=== PATIENT | female | born 1985 | race Caucasian/White ===

== ENCOUNTER → 2016-11-01 | Outpatient (CLI) | payer OTHER ==
[~2016-11-01] MED LIST: CEFD300C2 PO; CLX/20 PO; ETONMIS VAGRING; FRCT/ PO; GLC/500 PO; MULT-506 PO; ONDA4TAB46 PO; OXYC-609 PO; OXYC1CAP5 PO; OXYC1TAB3 PO; PRENTAB26 PO; SULF800T23 PO; TOPI100T20 PO
[2016-11-01 11:03] LABS: CREATININE 0.71 mg/dl (0.60-1.20)
== END | disposition home or self-care (01) ==
LOC: C.LAB 09:34
PROVIDERS: ATTEND Internal Medicine Endocrinology, Diabetes & Metabolism
DX: R73.03 Prediabetes (principal); D35.2 Benign neoplasm of pituitary gland

== ENCOUNTER 2016-11-08 21:46 | Emergency (ER) | payer OTHER ==
[~2016-11-08] VITALS: Ht 170.2 cm; Wt 134.9 kg
[~2016-11-08 21:46] MED LIST changes: -CEFD300C2 PO; -CLX/20 PO; -FRCT/ PO; -GLC/500 PO; -MULT-506 PO; -ONDA4TAB46 PO; -OXYC-609 PO; -OXYC1CAP5 PO; -OXYC1TAB3 PO; -PRENTAB26 PO; -SULF800T23 PO; -TOPI100T20 PO
[2016-11-08 21:50] VITALS: TEMP 37.1; Ht 170.2 cm; Wt 134.9 kg
[2016-11-08] MEDS ORDERED: GLC/500 PO (22:00)
[2016-11-08] MEDS ORDERED: CLX/20 PO (22:00)
[2016-11-08] MEDS ORDERED: TOPI100T20 PO (22:00)
[2016-11-08 22:40] VITALS: BP 149/101; PULSE 90; O2SAT 98
[2016-11-08 22:55] LABS: URINE APPEARANCE CLOUDY (CLEAR); URINE BILIRUBIN NEG (NEG); URINE COLOR ORANGE; URINE NITRITE NEG (NEG); UROBILINOGEN NEG (NEG)
[2016-11-08 22:57] LABS: MANUAL MICROSCOPIC REQUIRED? NO; REVIEW REQ? NO
[2016-11-08] MEDS ORDERED: SEPTRA DS HOME PACK 1 EA VIAL PO ONE (23:00)
[2016-11-08] MEDS ORDERED: SULF800T23 PO (23:04)
--- NOTE | 2016-11-08 23:36 | EMERGENCY ROOM VISIT NOTE ---
History Report prepared by Raina: Norah Cox Under the Supervision of: Dr. Aneudy Thompson M.D. First contact with patient: 21:58 Chief Complaint: HEMATURIA Stated Complaint: HEMATURIA History of Present Illness The patient is a 31 year old female who presents to the Emergency Room with complaints of persistent hematuria starting 2.5 weeks ago. 2.5 weeks ago she started having hematuria. She went to the ED in [place] and was diagnosed with a UTI. She was prescribed Macrobid. She did have some improvement after starting the Macrobid, but started having hematuria again. She is due for her period and thought that it might have been her period, but she tried using a tampon and saw that her period had not started. She denies any urinary urgency or frequency or dysuria. She has some abdominal cramping which she attributes to her period. She has some lower back pain which she attributes to her work. She did experience some chills today and felt dizzy at times. She denies any injury. She denies any history of bladder or kidney problems. Pt denies LOC, headache, fevers, diaphoresis, visual changes, neck pain, chest pain, breathing difficulties, nausea, vomiting, melena, hematochezia, weakness, lymphadenopathy , rash, or other complaints. Source of History: patient Onset: 2.5 weeks ago Position: other (urinary) Quality: other (hematuria) Timing: other (persistent) Associated Symptoms: + abdominal pain, + back pain, + chills Note: Pt reports feeling dizzy. Review of Systems See HPI for pertinent positives and negatives. A total of ten systems were reviewed and were otherwise negative. Past Medical & Surgical Medical Problems: (1) PCOS (polycystic ovarian syndrome) (2) Pituitary adenoma (3) UTI (urinary tract infection) Family History Diabetes mellitus Heart disease Hypertension Kidney disease Kidney stones Social History Smoking Status: Never Smoker Marital Status: single Occupation Status: employed Current/Historical Medications Scheduled Citalopram (Citalopram Hydrobromide), 20 MG PO DAILY Metformin Hcl (Glucophage), 500 MG PO BID Sulfa/Trimethoprim (Bactrim Ds 800MG/160MG), 1 TAB PO BID Topiramate (Topamax), 100 MG PO BID Allergies Coded Allergies: Meperidine (Verified Allergy, Severe, tongue swelling, 11/08/16) Adhesives (Verified Allergy, Mild, 11/08/16) Physical Exam Vital Signs Date Time Temp Pulse Resp B/P Pulse Ox O2 Delivery O2 Flow Rate FiO2 11/08/16 22:40 90 18 149/101 98 Room Air 11/08/16 21:50 37.1 80 18 160/84 99 Room Air Physical Exam GENERAL: Awake, alert, well-appearing, in no distress HENT: Normocephalic, atraumatic. Oropharynx unremarkable. EYES: Normal conjunctiva. Sclera non-icteric. NECK: Supple. No nuchal rigidity. FROM. No JVD. RESPIRATORY: Clear to auscultation. CARDIAC: Regular rate, normal rhythm. Extremities warm and well perfused. Pulses equal. ABDOMEN: Soft, non-distended. No tenderness to palpation. No rebound or guarding. No masses. RECTAL: Deferred. MUSCULOSKELETAL: The back is symmetrical on inspection without obvious abnormality. There is no CVA tenderness to palpation. No joint edema. NEURO: Normal sensorium. No sensory or motor deficits noted. SKIN: No rash or jaundice noted. Medical Decision & Procedures Laboratory Results Test 11/08/16 22:00 Urine Color ORANGE Urine Appearance CLOUDY (CLEAR) Urine pH 6.0 (4.5-7.5) Urine Specific [place] 1.020 (1.000-1.030) Urine Protein NEG (NEG) Urine Glucose (UA) NEG (NEG) Urine Ketones NEG (NEG) Urine Occult Blood 3+ (NEG) Urine Nitrite NEG (NEG) Urine Bilirubin NEG (NEG) Urine Urobilinogen NEG (NEG) Urine Leukocyte Esterase TRACE (NEG) Urine WBC (Auto) 1-5 /hpf (0-5) Urine RBC (Auto) >30 /hpf (0-4) Urine Hyaline Casts (Auto) 1-5 /lpf (0-5) Urine Epithelial Cells (Auto) 10-20 /lpf (0-5) Urine Bacteria (Auto) NEG (NEG) Urine Test NEG (NEG) Laboratory results reviewed by me Medications Administered Medications (Trade) Dose Ordered Sig/Yasmine Route Start Time Stop Time Status Last Admin Dose Admin Trimethoprim/ Sulfamethoxazole (Sulfameth/ Trimeth Ds 800/ 160MG [facility]) [facility] 11/08/16 23:00 11/08/16 23:01 DC 11/08/16 23:14 1 HOMEPA ED Course 220: The patient was evaluated in room B10. A complete history and physical exam was performed. 2239: I obtained the urine results from [place]. Hematuria was noted. Culture results showed greater than [id number] mixed emperatriz. They thought the urine to be contaminated so they did not isolate anything else. 2251: I reevaluated the patient. I discussed results and discharge instructions : she verbalized understanding and agreement. The patient is ready for discharge. 0: Trimethoprim/Sulfamethoxazole 1 homepack PO. Medical Decision Etiologies such as renal colic, appendicitis, diverticulitis, mesenteric ischemia, aortic pathology, infections, inflammatory bowel disease, PUD, biliary pathology, UTI, as well as others were entertained. Patient was evaluated. She had no symptoms and then hematuria. She has some cramping with urination but this was minimal. Her physical examination was benign. She had no abdominal tenderness. She had no CVA tenderness. She had no fever. Culture was obtained from [facility] but this unfortunately only showed what was labeled as contamination. The patient has hematuria here and is not . I will treat her for a cystitis. Culture was sent. The patient was started on Bactrim. A prescription was given. If she has any from she will come back to emergency primary. She will follow-up as an outpatient. Impression Primary Impression: Hematuria Additional Impression: UTI (urinary tract infection) Scribe Attestation The scribe's documentation has been prepared under my direction and personally reviewed by me in its entirety. I confirm that the note above accurately reflects all work, treatment, procedures, and medical decision making performed by me. Departure Information Dispostion Home / Self-Care Prescriptions Sulfa/Trimethoprim (Bactrim Ds 800MG/160MG) Tab 1 TAB PO BID, #8 TAB Prov: Aneudy Thompson MD 11/08/16 Referrals Norm Raygoza D.O. (PCP) Forms HOME CARE DOCUMENTATION FORM, IMPORTANT VISIT INFORMATION, WORK / SCHOOL INSTRUCTIONS Patient Instructions My [facility] Additional Instructions URINARY TRACT INFECTION INSTRUCTIONS: Trimethoprim-Sulfamethoxazole(Bactrim DS): Take one pill twice daily for 5 days for your urine infection. All antibiotics can cause diarrhea. If this occurs and you feel worse or it does not resolve in 1-2 days follow up with your doctor or return to the Emergency Department as this could be signs of serious underlying problems. Any medication can cause an allergic reaction, stop the pills immediately and return to the ER for rash, hives, breathing difficulties, or swelling. Ibuprofen(Motrin, Advil) may be used for fever or pain. Use 600mg every six hours as needed. Take with food. Avoid using more than 2400mg in a 24 hour period. Do not use 2400mg per day for more than three consecutive days without physician direction. Prolonged inappropriate use can lead to stomach upset or ulcers. (AND/OR) Acetaminophen(Tylenol) may be used for fever or pain. Use 1000mg every six hours as needed. Avoid using more than 4000mg in a 24 hour period. Rest and drink plenty of fluids. Continue current medications. Return to the ER immediately for worsening or persistent abdominal pain, vomiting, fevers, back or flank pain, worsening of your condition, or as needed. Follow up with your primary physician next week for a recheck of the current condition. Call the Emergency Room on Saturday for culture results. [phone]. Problem Qualifiers
[2017-01-08] MEDS ORDERED: MULT-506 PO (12:07)
[2017-01-08] MEDS ORDERED: FRCT/ PO (12:07)
[2017-02-21] MEDS ORDERED: ONDA4TAB46 PO (09:33)
[2017-02-21] MEDS ORDERED: OXYC1CAP5 PO (11:37)
== END 2016-11-08 23:17 | disposition home or self-care (01) ==
LOC: C.EDB 21:48
DX: R31.9 Hematuria, unspecified (principal); N39.0 Urinary tract infection, site not specified; E28.2 Polycystic ovarian syndrome; Z85.89 Personal history of malignant neoplasm of other organs and systems; Z79.84 Long term (current) use of oral hypoglycemic drugs; Z79.899 Other long term (current) drug therapy; Z88.8 Allergy status to other drugs, medicaments and biological substances; Z91.09 Other allergy status, other than to drugs and biological substances

== ENCOUNTER → 2016-11-19 | Outpatient (CLI) | payer OTHER ==
[~2016-11-19] MED LIST changes: +CEFD300C2 PO; +CLX/20 PO; -ETONMIS VAGRING; +FRCT/ PO; +GLC/500 PO; +MULT-506 PO; +ONDA4TAB46 PO; +OXYC-609 PO; +OXYC1CAP5 PO; +OXYC1TAB3 PO; +PRENTAB26 PO; +SULF800T23 PO; +TOPI100T20 PO
[2016-11-19 12:40] LABS: BASO % 0.3 %; BASO ABS # 0.03 K/uL (0-0.2); COMPLETE YES; EOS % 1.5 %; HEMATOCRIT 41.2 % (37-47); IG% 0.1 %; LYMPH % 29.3 %; MEAN CORPUSCULAR HEMOGLOBIN 29.3 pg (25-34); MEAN CORPUSCULAR HGB CONC 32.5 g/dl (32-36); MONO % 3.8 %; PLATELET COUNT 232 K/uL (130-400); RED BLOOD COUNT 4.58 M/uL (4.2-5.4); WHITE BLOOD COUNT 8.87 K/uL (4.8-10.8)
[2016-11-19 12:47] LABS: INR 0.9 (0.9-1.1); PROTHROMBIN TIME (PATIENT) 9.5 SECONDS (9.0-12.0)
== END | disposition home or self-care (01) ==
LOC: C.LAB 11:20
PROVIDERS: ATTEND Family Medicine
DX: R31.9 Hematuria, unspecified (principal)

== ENCOUNTER → 2016-11-22 | Outpatient (CLI) | payer OTHER ==
--- NOTE | 2016-11-22 16:53 | DIAGNOSTIC IMAGING REPORT ---
RENAL ULTRASOUND HISTORY: Flank [place]. [id number] COMPARISON: None. FINDINGS: Right kidney: Maximum dimension 10.8 cm Normal corticomedullary differentiation and cortical thickness. Left kidney: Maximum dimension 11.8 cm Normal corticomedullary differentiation and cortical thickness. Bladder: No bladder wall thickening. The bilateral ureteral jets were identified. IMPRESSION: Normal renal ultrasound. Electronically signed by: Gavino Cronin M.D. 11/22/2016 4:51 PM Dictated Date/Time: 11/22/2016 4:51 PM
== END | disposition home or self-care (01) ==
LOC: C.ULTR 15:56
PROVIDERS: ATTEND Family Medicine
DX: R31.9 Hematuria, unspecified (principal)

== ENCOUNTER → 2016-11-27 | Outpatient (CLI) | payer OTHER | END | disposition home or self-care (01) | LOC: C.LAB 14:48 | PROVIDERS: ATTEND Family Medicine | DX: R79.9 Abnormal finding of blood chemistry, unspecified (principal) ==

== ENCOUNTER → 2016-12-24 | Outpatient (CLI) | payer OTHER | END | disposition home or self-care (01) | LOC: C.PATHSPEC 16:58 | PROVIDERS: ATTEND Nurse Practitioner Adult Health | DX: R31.0 Gross hematuria (principal) ==

== ENCOUNTER → 2016-12-31 | Outpatient (CLI) | payer OTHER ==
[~2016-12-31] MED LIST changes: +OPTIRAY 320 IV PRN
--- NOTE | 2016-12-31 15:59 | DIAGNOSTIC IMAGING REPORT ---
CT ABD/PELVIS COMBO CLINICAL HISTORY: Gross hematuria COMPARISON STUDY: None. TECHNIQUE: Unenhanced images were obtained through the abdomen pelvis. The patient was injected with 50 cc of Optiray 320. The patient is rescanned in a dynamic helical fashion following the additional administration of 69 cc of Optiray 320. CT DOSE: 3638.95 mGy.cm FINDINGS: Lower chest: There are minimal dependent atelectatic changes. Liver: There is mild hepatic steatosis. No focal masses are visualized. Gallbladder: Unremarkable. Spleen: Normal in size and attenuation. Pancreas: Unremarkable. Adrenal glands: Unremarkable. Kidneys: There is a 7 mm proximal right ureteral calculus. There are no significant obstructive changes. No left renal calculi are visualized. No bladder calculi are evident. No renal masses are visualized. Bowel: There are no transition zones indicate bowel obstruction. Appendix appears normal. There is no acute diverticulitis. Peritoneum: There is no intraperitoneal free air or abdominal ascites. Vasculature: The abdominal aorta is normal in course and caliber. Adenopathy: None. Pelvic viscera: There is a 44 mm right ovarian cyst likely functional. Skeletal structures: No destructive osseous lesions are seen. IMPRESSION: 1. 7 mm nonobstructing proximal right ureteral calculus 2. No solid renal masses identified 3. 44 mm right ovarian cyst likely functional Electronically signed by: Bao Yeh M.D. 12/31/2016 3:57 PM Dictated Date/Time: 12/31/2016 3:53 PM
== END | disposition home or self-care (01) ==
LOC: C.CTS 15:09
PROVIDERS: ATTEND Nurse Practitioner Adult Health
DX: R31.0 Gross hematuria (principal); N20.1 Calculus of ureter; N83.201 Unspecified ovarian cyst, right side

== ENCOUNTER → 2017-01-02 | Outpatient (CLI) | payer OTHER ==
[~2017-01-02] MED LIST changes: -OPTIRAY 320 IV PRN
--- NOTE | 2017-01-02 15:00 | DIAGNOSTIC IMAGING REPORT ---
KUB CLINICAL HISTORY: NEPHROLITHIASIS COMPARISON STUDY: CT scan dated 12/31/2016 FINDINGS: There is a 7 mm proximal right ureteral calculus at the L3 level. There are no calcifications suspicious for renal calculi. There is no pathologic bowel dilatation. IMPRESSION: 7 mm proximal right ureteral calculus Electronically signed by: Bao Yeh M.D. 01/02/2017 2:58 PM Dictated Date/Time: 01/02/2017 2:57 PM
[2017-01-02 15:13] LABS: BLOOD UREA NITROGEN 13 mg/dl (7-18); BUN/CREATININE RATIO 13.9 (10-20); CREATININE 0.92 mg/dl (0.60-1.20)
== END | disposition home or self-care (01) ==
LOC: C.LAB 13:16
PROVIDERS: ATTEND Nurse Practitioner Adult Health
DX: N20.0 Calculus of kidney (principal); R31.0 Gross hematuria

== ENCOUNTER → 2017-01-07 | Outpatient (CLI) | payer OTHER ==
[2017-01-07 09:37] LABS: BASO % 0.2 %; BASO ABS # 0.02 K/uL (0-0.2); COMPLETE YES; EOS % 1.1 %; HEMATOCRIT 39.1 % (37-47); IG% 0.4 %; LYMPH % 26.5 %; LYMPH ABS # 2.54 K/uL (1.2-3.4); MEAN CELL VOLUME 90.3 fL (80-100); MEAN CORPUSCULAR HEMOGLOBIN 29.8 pg (25-34); MEAN PLATELET VOLUME 11.8 fL (7.4-10.4); MONO % 4.9 %; NEUT % 66.9 %; PLATELET COUNT 240 K/uL (130-400); RED BLOOD COUNT 4.33 M/uL (4.2-5.4)
[2017-01-07 09:40] LABS: POTASSIUM 4.2 mmol/L (3.5-5.1)
== END | disposition home or self-care (01) ==
LOC: C.LAB 08:34
PROVIDERS: ATTEND Nurse Practitioner Adult Health
DX: N20.1 Calculus of ureter (principal)

== ENCOUNTER → 2017-01-11 | Day surgery (SDC) | payer OTHER ==
[2017-01-08 12:07] VITALS: Ht 170.2 cm; Wt 135.3 kg
--- NOTE | 2017-01-08 12:22 | PAT Medication Instructions ---
Service Date Jan 08, 2017. Current Home Medication List Acetamin/Butalbital/Caffeine (Fioricet), 1 TAB PO UD PRN for RN Citalopram (Citalopram Hydrobromide), 20 MG PO QAM Metformin Hcl (Glucophage), 500 MG PO BID Multivitamin (Multivitamin), 1 TAB PO QAM Topiramate (Topamax), 100 MG PO BID Medication Instructions For Your Scheduled Surgery - Hold the following medications 48 hours prior to surgery: Metformin Hcl (Glucophage), 500 MG PO BID - Hold the following medications the morning of surgery: Acetamin/Butalbital/Caffeine (Fioricet), 1 TAB PO UD PRN Multivitamin (Multivitamin), 1 TAB PO QAM - Take the following medications the morning of surgery with a sip of water OTHERWISE NOTHING TO EAT OR DRINK AFTER MIDNIGHT: Topiramate (Topamax), 100 MG PO BID Citalopram (Citalopram Hydrobromide), 20 MG PO QAM - Take the following medications as scheduled the night before surgery: Topiramate (Topamax), 100 MG PO BID Acetamin/Butalbital/Caffeine (Fioricet), 1 TAB PO UD PRN If you have any questions please call us at [phone] or [phone] or [phone]
[~2017-01-11] VITALS: Ht 170.2 cm; Wt 135.3 kg
[~2017-01-11] MED LIST changes: +CIPROFLOXACIN 400MG / D5W IV SCH; +LACTATED RINGER'S 1000ML 1,000 ML IV SCH; -SULF800T23 PO
== END ==
LOC: EDSTATUS 09:15 → C.PAT 11:57
PROVIDERS: ATTEND Urology
DX: Z01.812 Encounter for preprocedural laboratory examination (principal); Z53.9 Procedure and treatment not carried out, unspecified reason

== ENCOUNTER → 2017-01-28 | Outpatient (CLI) | payer OTHER ==
[~2017-01-28] MED LIST changes: -CIPROFLOXACIN 400MG / D5W IV SCH; -LACTATED RINGER'S 1000ML 1,000 ML IV SCH
[2017-01-28 16:02] LABS: URINE APPEARANCE CLEAR (CLEAR); URINE BILIRUBIN NEG (NEG); URINE COLOR DK YELLOW; URINE NITRITE NEG (NEG); URINE PH 6.5 (4.5-7.5); URINE SPECIFIC GRAVITY 1.023 (1.000-1.030); UROBILINOGEN NEG (NEG)
[2017-01-28 16:05] LABS: MANUAL MICROSCOPIC REQUIRED? NO; REVIEW REQ? NO
== END | disposition home or self-care (01) ==
LOC: C.LABSPEC 15:43
PROVIDERS: ATTEND Obstetrics & Gynecology
DX: O24.419 Gestational diabetes mellitus in pregnancy, unspecified control (principal)

== ENCOUNTER → 2017-02-04 | Outpatient (CLI) | payer OTHER ==
[2017-02-04 14:41] LABS: BASO % 0.3 %; BASO ABS # 0.03 K/uL (0-0.2); COMPLETE YES; EOS % 1.1 %; HEMATOCRIT 37.5 % (37-47); IG% 0.4 %; LYMPH % 25.6 %; LYMPH ABS # 2.62 K/uL (1.2-3.4); MEAN CELL VOLUME 88.4 fL (80-100); MEAN CORPUSCULAR HGB CONC 32.8 g/dl (32-36); MEAN PLATELET VOLUME 11.9 fL (7.4-10.4); MONO % 4.5 %; NEUT % 68.1 %; PLATELET COUNT 213 K/uL (130-400); RED BLOOD COUNT 4.24 M/uL (4.2-5.4); WHITE BLOOD COUNT 10.25 K/uL (4.8-10.8)
[2017-02-07 01:02] LABS: CHLAMYDIA TRACH RNA*** NOT DETECTED (NOT DETECTED); GC (NEIS GONORRHOEAE)RNA** NOT DETECTED (NOT DETECTED)
== END | disposition home or self-care (01) ==
LOC: C.LAB1850 13:08
PROVIDERS: ATTEND Obstetrics & Gynecology
DX: O24.419 Gestational diabetes mellitus in pregnancy, unspecified control (principal); Z3A.00 Weeks of gestation of pregnancy not specified

== ENCOUNTER 2017-02-10 04:12 | Emergency (ER) | payer OTHER ==
[~2017-02-10] VITALS: Ht 157.5 cm; Wt 135.0 kg
[~2017-02-10 04:12] MED LIST changes: -CEFD300C2 PO; -ONDA4TAB46 PO; -OXYC-609 PO; -OXYC1CAP5 PO; -OXYC1TAB3 PO; -PRENTAB26 PO
[2017-02-10 04:21] VITALS: TEMP 36.8; Ht 157.5 cm; Wt 135.0 kg
[2017-02-10] MEDS ORDERED: MoRPHine SULFATE 4 MG/ML 1 ML CARP\\VIAL IV STA ×2 (04:33→06:02)
[2017-02-10] MEDS ORDERED: SODIUM CHLORIDE 0.9% 1000ML 1,000 ML IV STA ×2 (04:33)
[2017-02-10] MEDS ORDERED: ONDANSETRON INJ 2 MG/ML 2 ML VIAL IV STA (04:33)
[2017-02-10 04:41] VITALS: O2SAT 98
[2017-02-10 04:47] LABS: BASO % 0.3 %; BASO ABS # 0.03 K/uL (0-0.2); COMPLETE YES; EOS % 1.2 %; HEMATOCRIT 39.3 % (37-47); IG% 0.2 %; LYMPH % 25.2 %; MEAN CELL VOLUME 87.3 fL (80-100); MEAN CORPUSCULAR HEMOGLOBIN 29.6 pg (25-34); MEAN CORPUSCULAR HGB CONC 33.8 g/dl (32-36); MEAN PLATELET VOLUME 11.9 fL (7.4-10.4); MONO % 6.6 %; NEUT % 66.5 %; PLATELET COUNT 214 K/uL (130-400); WHITE BLOOD COUNT 9.92 K/uL (4.8-10.8)
[2017-02-10 05:24] LABS: ALKALINE PHOSPHATASE 87 U/L (45-117); ALT/SGPT 20 U/L (12-78); BLOOD UREA NITROGEN 8 mg/dl (7-18); BUN/CREATININE RATIO 10.7 (10-20); CALCIUM 8.9 mg/dl (8.5-10.1); CARBON DIOXIDE 21 mmol/L (21-32); CHLORIDE 107 mmol/L (98-107); CREATININE 0.78 mg/dl (0.60-1.20); GLUCOSE 102 mg/dl (70-99)
[2017-02-10 05:50] LABS: AST/SGOT 18 U/L (15-37); SODIUM 139 mmol/L (136-145)
[2017-02-10] MEDS ORDERED: PRENTAB26 PO (06:18)
[2017-02-10 06:20] LABS: URINE APPEARANCE CLOUDY (CLEAR); URINE BILIRUBIN NEG (NEG); URINE COLOR DK YELLOW; URINE EPITHELIAL CELL AUTO >30 /lpf (0-5); URINE NITRITE NEG (NEG); URINE PH 5.5 (4.5-7.5); URINE SPECIFIC GRAVITY 1.028 (1.000-1.030); UROBILINOGEN NEG (NEG); ZZUR CULT IF INDIC CLEAN CATCH NO
[2017-02-10 06:26] LABS: MANUAL MICROSCOPIC REQUIRED? NO; REVIEW REQ? YES
[2017-02-10 06:36] LABS: URINE MUCUS PRESENT (NONE PRSENT)
[2017-02-10] MEDS ORDERED: HYDROmorphone INJ 1 MG/ML SYR IV STA (06:52)
[2017-02-10] MEDS ORDERED: OXYCODONE IR HOME PACK PO ONE (07:00)
[2017-02-10] MEDS ORDERED: ONDANSETRON HOME PACK 4MG OD TAB PO ONE (07:00)
--- NOTE | 2017-02-10 07:24 | EMERGENCY ROOM VISIT NOTE ---
History First contact with patient: 04:23 Chief Complaint: KIDNEY STONE Stated Complaint: KIDNEY STONE History of Present Illness The patient is a 32 year old female who presents to the Emergency Room with complaints of severe sudden onset of right flank pain with history kidney stents who is 9 weeks . Patient had ultrasound last week that showed a viable IUP. Her urologist is Dr. Sue. Patient discussed pain as aching, ranging in severity 9 out of 10. Nothing makes it better or worse. Patient denies abdominal pain, vaginal bleeding, vaginal pain, urinary symptoms, fever, chills, vomiting, diarrhea, chest pain, dyspnea. No injury to the area. Review of Systems See HPI for pertinent positives & negatives. A total of 10 systems reviewed and were otherwise negative. Past Medical/Surgical History Medical Problems: (1) PCOS (polycystic ovarian syndrome) (2) Pituitary adenoma (3) UTI (urinary tract infection) Family History Diabetes mellitus Heart disease Hypertension Kidney disease Kidney stones Social History Smoking Status: Never Smoker Drug Use: none Marital Status: in relationship Housing Status: lives with family Occupation Status: employed Current/Historical Medications Scheduled Multivit/Min/Iron/Fol Ac/Pren ( Vitamin), 1 TAB PO DAILY Allergies Coded Allergies: Meperidine (Verified Allergy, Severe, tongue swelling, 02/10/17) Adhesives (Verified Allergy, Mild, PEELED SKIN OFF WITH PLASTIC TAPE, 02/10) [place] (Unverified Allergy, Unknown, TONGUE SWELLING, 02/10/17) Physical Exam Vital Signs Date Time Temp Pulse Resp B/P (MAP) Pulse Ox O2 Delivery O2 Flow Rate FiO2 02/10/17 06:49 88 18 134/83 96 02/10/17 04:41 98 Room Air 02/10/17 04:40 98 Room Air 02/10/17 04:21 36.8 95 22 152/95 100 Room Air Physical Exam VITALS: Vitals are noted on the nurse's note and reviewed by myself. Vital signs stable. GENERAL: Pleasant female, in no acute distress, nondiaphoretic, well-developed well-nourished. SKIN: The skin was without rashes, erythema, edema, or bruising. There is no tenting of the skin. Capillary reflex less than 2 seconds. HEAD: Normocephalic atraumatic. EARS: External auditory canals clear, tympanic membranes pearly espinoza without erythema or effusion bilaterally. EYES: Pupils equal round and reactive to light and accommodation. Conjunctivae without injection, sclerae without icterus. Extraocular movements intact. NOSE: Patent, turbinates without inflammation or discharge. MOUTH: Mucous membranes moist. Pharynx without erythema or exudate. Uvula midline. Airway patent. Tongue does not deviate. NECK: Supple without nuchal rigidity. No lymphadenopathy. No thyromegaly. Cervical spine is nontender. No JVD. HEART: Regular rate and rhythm without murmurs gallops or rubs. LUNGS: Clear to auscultation bilaterally without wheezes, rales or rhonchi. No dullness to percussion. No retractions or accessory muscle use. ABDOMEN: Positive bowel sounds x 4. Normal tympanic percussion. Soft, protuberant, obese, no CVA tenderness nontender, without masses or organomegaly. Harris sign negative. No guarding or rebound tenderness. MUSCULOSKELETAL: No muscle atrophy, erythema, or edema noted. NEURO: Patient was alert and oriented to person place and time. Normal sensation to light and sharp touch. No focal neurological deficits. Medical Decision & Procedures Laboratory Results 02/10/17 04:33 Red Blood Count 4.50, Mean Corpuscular Volume 87.3, Mean Corpuscular Hemoglobin 29.6, Mean Corpuscular Hemoglobin Concent 33.8, Mean Platelet Volume 11.9, Neutrophils (%) (Auto) 66.5, Lymphocytes (%) (Auto) 25.2, Monocytes (%) (Auto) 6.6, Eosinophils (%) (Auto) 1.2, Basophils (%) (Auto) 0.3, Neutrophils # (Auto) 6.60, Lymphocytes # (Auto) 2.50, Monocytes # (Auto) 0.65, Eosinophils # (Auto) 0.12, Basophils # (Auto) 0.03 02/10/17 04:33 Test 02/10/17 04:33 02/10/17 05:00 White Blood Count 9.92 K/uL (4.8-10.8) Red Blood Count 4.50 M/uL (4.2-5.4) Hemoglobin 13.3 g/dL (12.0-16.0) Hematocrit 39.3 % (37-47) Mean Corpuscular Volume 87.3 fL (80-100) Mean Corpuscular Hemoglobin 29.6 pg (25-34) Mean Corpuscular Hemoglobin Concent 33.8 g/dl (32-36) Platelet Count 214 K/uL (130-400) Mean Platelet Volume 11.9 fL (7.4-10.4) Neutrophils (%) (Auto) 66.5 % Lymphocytes (%) (Auto) 25.2 % Monocytes (%) (Auto) 6.6 % Eosinophils (%) (Auto) 1.2 % Basophils (%) (Auto) 0.3 % Neutrophils # (Auto) 6.60 K/uL (1.4-6.5) Lymphocytes # (Auto) 2.50 K/uL (1.2-3.4) Monocytes # (Auto) 0.65 K/uL (0.11-0.59) Eosinophils # (Auto) 0.12 K/uL (0-0.5) Basophils # (Auto) 0.03 K/uL (0-0.2) RDW Standard Deviation 47.7 fL (36.4-46.3) RDW Coefficient of Variation 14.9 % (11.5-14.5) Immature Granulocyte % (Auto) 0.2 % Immature Granulocyte # (Auto) 0.02 K/uL (0.00-0.02) Anion Gap 11.0 mmol/L (3-11) Est Creatinine Clear Calc Drug Dose 140.0 ml/min Estimated GFR () 118.2 Estimated GFR (Non- 102.0 BUN/Creatinine Ratio 10.7 (10-20) Calcium Level 8.9 mg/dl (8.5-10.1) Total Bilirubin 0.2 mg/dl (0.2-1) Direct Bilirubin mg/dl (0-0.2) Aspartate Amino Transf (AST/SGOT) 18 U/L (15-37) Alanine Aminotransferase (ALT/SGPT) 20 U/L (12-78) Alkaline Phosphatase 87 U/L (45-117) Total Protein 7.3 gm/dl (6.4-8.2) Albumin 3.0 gm/dl (3.4-5.0) Urine Color DK YELLOW Urine Appearance CLOUDY (CLEAR) Urine pH 5.5 (4.5-7.5) Urine Specific [place] 1.028 (1.000-1.030) Urine Protein 1+ (NEG) Urine Glucose (UA) NEG (NEG) Urine Ketones NEG (NEG) Urine Occult Blood 2+ (NEG) Urine Nitrite NEG (NEG) Urine Bilirubin NEG (NEG) Urine Urobilinogen NEG (NEG) Urine Leukocyte Esterase NEG (NEG) Urine WBC (Auto) 5-10 /hpf (0-5) Urine RBC (Auto) 5-10 /hpf (0-4) Urine Hyaline Casts (Auto) 5-10 /lpf (0-5) Urine Epithelial Cells (Auto) >30 /lpf (0-5) Urine Bacteria (Auto) NEG (NEG) Urine Crystals CALCIUM OXALATE (NONE Urine Mucus PRESENT (NONE PRSENT) Medications Administered Medications (Trade) Dose Ordered Sig/Yasmine Route Start Time Stop Time Status Last Admin Dose Admin Morphine Sulfate (MoRPHine SULFATE INJ) 4 mg NOW STAT IV 02/10/17 04:33 02/10/17 04:35 DC 02/10/17 04:50 4 MG Ondansetron HCl (Zofran Inj) 4 mg NOW STAT IV 02/10/17 04:33 02/10/17 04:35 DC 02/10/17 04:50 4 MG Sodium Chloride 1,000 ml @ 999 mls/hr Q1H1M STAT IV 02/10/17 04:33 02/10/17 05:33 DC 02/10/17 04:50 999 MLS/HR Sodium Chloride 1,000 ml @ 125 mls/hr Q8H STAT IV 02/10/17 04:33 02/10/17 12:32 02/10/17 04:51 125 MLS/HR Morphine Sulfate (MoRPHine SULFATE INJ) 4 mg NOW STAT IV 02/10/17 06:02 02/10/17 06:03 DC 02/10/17 06:08 4 MG Hydromorphone HCl (Dilaudid Inj) 1 mg NOW STAT IV 02/10/17 06:52 02/10/17 06:53 DC 02/10/17 06:57 1 MG ED Course Prior records/ancillary studies reviewed. Triage Nursing notes reviewed. The patient's history was concerning for right flank pain. Differential diagnosis: Etiologies such as renal colic, problem with , appendicitis, diverticulitis, mesenteric ischemia, aortic pathology, infections, inflammatory bowel disease, PUD, biliary pathology, UTI, as well as others were entertained. Physical examination findings: As above. ER treatment provided: Morphine, Zofran, IV fluids On reassessment the patient felt better. Diagnostic interpretation by me: The labs revealed stable H&H. Urinalysis revealed hematuria. There was no sign of UTI. Imaging studies: CT of the abdomen and pelvis was reviewed from prior and patient does have a 7 mm stone in the right kidney Ultrasound was reviewed and shows viable IUP with 4cm right ovarian cyst. Mild right hydronephrosis It appears that the patient has isolated renal colic from a possible right sided stone. Patient also has a right ovarian cyst. She is 9 weeks . She certainly had imaging. She states she will follow up with Dr. Sue. Patient does not want to be seen by Dr. Reeder. She felt better to be medicated as above. She is advised take medications as directed and to follow-up with OB and urology this week or here in the ER sooner for severe pain, fevers, vomiting, worsening signs or symptoms or as needed. By the evaluation outlined above emergent etiologies such as appendicitis, diverticulitis, mesenteric ischemia, aortic pathology, infections, inflammatory bowel disease, PUD, biliary pathology, UTI, as well as others were deemed relatively unlikely. The pt informed about the findings as listed above. All questions were answered and pleased with the treatment. Return instructions were outlined and the patient was discharged in stable condition. Outpatient prescription management: Oxy IR 5mg 1-2 po Q4 hrs prn Zofran Referral: The pt was referred to [facility] for follow up care regarding their stone. And The patient was referred back to their TRANSPLANT COORDINATOR for follow-up in 2 to 3 days for a recheck of the current condition. Case reviewed with my attending Medical Decision As above Impression Primary Impression: Right flank pain Additional Impression: Right ovarian cyst Departure Information Dispostion Home / Self-Care Condition GOOD Referrals Norm Raygoza D.O. (PCP) Patient Instructions My [facility] Additional Instructions DO NOT drive, drink alcohol, operate machinery, or perform dangerous activities today. You were given medications in the ER that can affect your ability to safely function or operate a vehicle. Oxycodone Immediate Release (OxyIR) 5mg: Take 1-2 pills every four hours for pain. Avoid alcohol, operating machinery or dangerous equipment, working on ladders or roofs, DRIVING, or situations where being under the influence may be dangerous. It is recommended to use an [id number] stool softener such as Colace, 100mg twice daily while taking this medication to avoid constipation. Zofran 4 mg: Take one every six hours as needed for nausea. Avoid alcohol, operating machinery or dangerous equipment, working on ladders or roofs, DRIVING , or situations where being under the influence may be dangerous. Acetaminophen(Tylenol) may be used for fever or pain. Use 1000mg every six hours as needed. Avoid using more than 3000mg in a 24 hour period. This medication can be taken if you need to drive, work, or perform activities which may be dangerous when taking narcotic pain medication. Rest and avoid strenuous activity until your stone passes and symptoms resolve. Drink plenty of fluids. Continue current medications. Return to the ER for worsening abdominal or back pain, vomiting, fevers, passing out, or as needed. Follow up with urology in 2-3 days, call for an appointment. Follow-up the OB doctor in 2-3 days. Call for an appointment. Problem Qualifiers
[2017-02-10] MEDS ORDERED: OXYC1TAB3 PO (07:26)
[2017-02-10 07:43] VITALS: BP 134/83; PULSE 62; O2SAT 99
--- NOTE | 2017-02-10 08:32 | DIAGNOSTIC IMAGING REPORT ---
(RENAL)RETROPERITON COMP HISTORY: 32 years-old Female right flank pain, ? stone COMPARISON: Renal ultrasound 11/22/2016 TECHNIQUE: Multiple real-time sonographic images of the kidneys and urinary bladder were obtained assessing grayscale appearance and color flow FINDINGS: Right kidney measures 11.5 x 5.1 x 5.7 cm and demonstrates mild dilation of the renal pelvis and calyces. No right-sided obstructing calculus or mass identified. Corticomedullary differentiation is within normal limits. Incidental note is made of increased echogenicity of the liver suggesting fatty infiltration. Left kidney measures 11.6 x 5.6 x 5.6 cm and is unremarkable without hydronephrosis, mass, calculus or abnormal cortical medullary differentiation. Urinary bladder is collapsed and not well seen. The exam overall is limited secondary to patient obesity. IMPRESSION: 1. Mild dilation of the right renal pelvis and calyces suggests hydronephrosis without obstructing stone or calculus identified. 2. Left kidney is unremarkable. Urinary bladder is collapsed. 3. Fatty infiltration of the liver incidentally noted. The above report was generated using voice recognition software. It may contain grammatical, syntax or spelling errors. Electronically signed by: Von Erazo M.D. 02/10/2017 8:30 AM Dictated Date/Time: 02/10/2017 8:27 AM
--- NOTE | 2017-02-10 08:36 | DIAGNOSTIC IMAGING REPORT ---
<14 WKS SINGLE HISTORY: 32 years-old Female acute right-sided flank pain. Patient is 9 weeks COMPARISON: Renal ultrasound of same day, CT abdomen and pelvis 12/31/2016. TECHNIQUE: Multiple real-time sonographic images of the deep pelvic structures were obtained transabdominally assessing grayscale appearance, color and spectral flow with M-mode analysis. FINDINGS: Anteflexed uterus is seen, 11.0 x 7.2 x 7.6 cm. Intrauterine gestational sac is present with a yolk sac and pole. [place]-rump length measures 2.4 cm, correlating with estimated gestational age of 9 weeks and 0 days. This corresponds to estimated date of delivery of 09/15/2017. heart rate is measured at 175 bpm. Right ovary measures 4.5 x 3.7 x 4.9 cm. Cystic avascular structure of the right ovary is seen, 4.2 x 3.6 x 3.7 cm. Arterial inflow is documented within the right ovary. The left ovary measures 3.7 x 2.6 x 4.6 cm. Cystic structure within the left ovary suggesting follicle is seen, 2.4 x 2.3 x 2.0 cm. Arterial inflow was documented within the left ovary. There is no significant free pelvic fluid. IMPRESSION: 1. Single living intrauterine gestation with estimated gestational age of 8 weeks and 5 days corresponding to an estimated date of delivery of 09/15/2017. 2. Probable right sided corpus luteal cyst, 4.2 cm. 3. No evidence of ovarian torsion. The above report was generated using voice recognition software. It may contain grammatical, syntax or spelling errors. Electronically signed by: Von Erazo M.D. 02/10/2017 8:35 AM Dictated Date/Time: 02/10/2017 8:30 AM
[2017-02-11] MEDS ORDERED: OXYC1TAB3 PO (20:29)
[2017-02-21] MEDS ORDERED: ONDA4TAB46 PO (09:33)
[2017-02-21] MEDS ORDERED: OXYC1CAP5 PO (11:37)
== END 2017-02-10 07:47 | disposition home or self-care (01) ==
LOC: C.EDB 04:12
DX: R10.11 Right upper quadrant pain (principal); R10.31 Right lower quadrant pain; N83.201 Unspecified ovarian cyst, right side; Z33.1 Pregnant state, incidental; Z96.0 Presence of urogenital implants; Z83.3 Family history of diabetes mellitus; Z82.49 Family history of ischemic heart disease and other diseases of the circulatory system; Z84.1 Family history of disorders of kidney and ureter; D35.2 Benign neoplasm of pituitary gland

== ENCOUNTER 2017-02-11 14:31 | Emergency (ER) | payer OTHER ==
[~2017-02-11] VITALS: Ht 170.2 cm; Wt 133.3 kg
[~2017-02-11 14:31] MED LIST changes: -CLX/20 PO; -FRCT/ PO; -GLC/500 PO; -MULT-506 PO; +OXYC1TAB3 PO; +PRENTAB26 PO; -TOPI100T20 PO
[2017-02-11 14:42] VITALS: TEMP 36.7; Ht 170.2 cm; Wt 133.3 kg
[2017-02-11] MEDS ORDERED: SODIUM CHLORIDE 0.9% 1000ML 1,000 ML IV STA ×2 (16:23→17:41)
--- NOTE | 2017-02-11 16:35 | EMERGENCY ROOM VISIT NOTE ---
History First contact with patient: 16:22 Chief Complaint: FLANK PAIN Stated Complaint: FLANK PAIN History of Present Illness The patient is a 32 year old (9+2) female who presents to the Emergency Room with complaints of right flank pain. Her pain has been present since yesterday morning. She was seen in the ER yesterday and treated with morphine, Dilaudid and discharged with oxycodone 5mg Q4H PRN for pain. Despite this her pain became unbearable this morning again despite oxycodone use. At worse it was a severity 9/10, currently 7/10. She has been pacing around with the pain. She has been keeping well hydrated sine being seen in the ER. She has a history of gross hematuria She has a known renal stone seen on CT in December. Plan was to remove by lithotripsy however she subsequently found out she was . Plan is for procedure around 16 weeks . Review of Systems All systems reviewed and otherwise negative other than in HPI Constitutional: No fever, No chills Respiratory: No shortness of breath Cardiovascular: No chest pain Abdomen: No nausea, No vomiting, No diarrhea, No constipation, No GI bleeding Genitourinary - Female: No dysuria, No urinary frequency Past Medical/Surgical History Medical Problems: (1) PCOS (polycystic ovarian syndrome) (2) Pituitary adenoma (3) UTI (urinary tract infection) Family History Diabetes mellitus Heart disease Hypertension Kidney disease Kidney stones Social History Smoking Status: Never Smoker Drug Use: none Marital Status: in relationship Housing Status: lives with family Occupation Status: employed Current/Historical Medications Scheduled Multivit/Min/Iron/Fol Ac/Pren ( Vitamin), 1 TAB PO DAILY Scheduled PRN Oxycodone Immediate Rel Tab (Roxicodone Ir), 1-2 TAB PO Q4H PRN for Severe Pain Oxycodone Ir (Roxicodone Ir), 1-2 TAB PO Q4H PRN for Severe Pain Physical Exam Vital Signs Date Time Temp Pulse Resp B/P (MAP) Pulse Ox O2 Delivery O2 Flow Rate FiO2 02/11/17 20:12 78 18 122/66 96 Room Air 02/11/17 18:36 67 16 126/66 99 Room Air 02/11/17 16:55 80 18 130/92 97 Room Air 02/11/17 14:42 36.7 72 18 134/73 98 Room Air Physical Exam General Appearance: + moderate distress (from right flank pain), + obese Respiratory/Chest: chest non-tender, lungs clear, normal breath sounds, no respiratory distress, no accessory muscle use Cardiovascular: regular rate, rhythm, no murmur, normal peripheral pulses Abdomen / GI: normal bowel sounds, non tender, soft Back: + right CVA tenderness Neurologic/Psych: alert, oriented x 3 Medical Decision & Procedures ER Provider Diagnostic Interpretation: (RENAL)RETROPERITON COMP HISTORY: 32 years-old Female right flank pain, known nephrolithiasis ?hydro COMPARISON: Renal ultrasound 02/10/2017 TECHNIQUE: Multiple real-time sonographic images of the kidneys and urinary bladder were obtained assessing grayscale appearance and color flow FINDINGS: The right kidney measures 11.9 x 5.8 x 7.1 cm. Mild dilation of the proximal right ureter, renal pelvis, Central and peripheral calyces is again seen without significant change from comparison study yesterday. No obstructing stone or mass is identified. Cortical medullary differentiation is within normal limits. The left kidney measures 12.8 x 6.5 x 7.5 cm and appears unremarkable without hydronephrosis, calculus or abnormal appearing parenchyma. The urinary bladder is unremarkable with bilateral ureteral jets documented. IMPRESSION: 1. Persistent right-sided hydronephrosis with mild dilation of the proximal right ureter, suspicious for distal obstructing process or stone which is not imaged. This could be correlated with a follow-up CT abdomen and pelvis without contrast. 2. Unremarkable sonographic appearance of the left kidney and urinary bladder. The above report was generated using voice recognition software. It may contain grammatical, syntax or spelling errors. Electronically signed by: Von Erazo M.D. 02/11/2017 7:20 PM Dictated Date/Time: 02/11/2017 7:17 PM Laboratory Results 02/11/17 16:46 Red Blood Count 4.37, Mean Corpuscular Volume 87.6, Mean Corpuscular Hemoglobin 30.0, Mean Corpuscular Hemoglobin Concent 34.2, Mean Platelet Volume 11.7, Neutrophils (%) (Auto) 69.6, Lymphocytes (%) (Auto) 24.0, Monocytes (%) (Auto) 5.3, Eosinophils (%) (Auto) 0.6, Basophils (%) (Auto) 0.3, Neutrophils # (Auto) 7.65, Lymphocytes # (Auto) 2.64, Monocytes # (Auto) 0.58, Eosinophils # (Auto) 0.07, Basophils # (Auto) 0.03 02/11/17 16:46 Test 02/11/17 16:46 02/11/17 17:10 White Blood Count 10.99 K/uL (4.8-10.8) Red Blood Count 4.37 M/uL (4.2-5.4) Hemoglobin 13.1 g/dL (12.0-16.0) Hematocrit 38.3 % (37-47) Mean Corpuscular Volume 87.6 fL (80-100) Mean Corpuscular Hemoglobin 30.0 pg (25-34) Mean Corpuscular Hemoglobin Concent 34.2 g/dl (32-36) Platelet Count 226 K/uL (130-400) Mean Platelet Volume 11.7 fL (7.4-10.4) Neutrophils (%) (Auto) 69.6 % Lymphocytes (%) (Auto) 24.0 % Monocytes (%) (Auto) 5.3 % Eosinophils (%) (Auto) 0.6 % Basophils (%) (Auto) 0.3 % Neutrophils # (Auto) 7.65 K/uL (1.4-6.5) Lymphocytes # (Auto) 2.64 K/uL (1.2-3.4) Monocytes # (Auto) 0.58 K/uL (0.11-0.59) Eosinophils # (Auto) 0.07 K/uL (0-0.5) Basophils # (Auto) 0.03 K/uL (0-0.2) RDW Standard Deviation 48.8 fL (36.4-46.3) RDW Coefficient of Variation 15.1 % (11.5-14.5) Immature Granulocyte % (Auto) 0.2 % Immature Granulocyte # (Auto) 0.02 K/uL (0.00-0.02) Anion Gap 9.0 mmol/L (3-11) Est Creatinine Clear Calc Drug Dose 177.7 ml/min Estimated GFR () 137.4 Estimated GFR (Non- 118.5 BUN/Creatinine Ratio 9.1 (10-20) Calcium Level 9.1 mg/dl (8.5-10.1) Total Bilirubin 0.2 mg/dl (0.2-1) Aspartate Amino Transf (AST/SGOT) 18 U/L (15-37) Alanine Aminotransferase (ALT/SGPT) 17 U/L (12-78) Alkaline Phosphatase 87 U/L (45-117) Total Protein 7.7 gm/dl (6.4-8.2) Albumin 3.1 gm/dl (3.4-5.0) Globulin 4.6 gm/dl (2.5-4.0) Albumin/Globulin Ratio 0.7 (0.9-2) Human Chorionic Gonadotropin, Quant 308441 mIU/mL Chemistry Specimen Hemolysis Urine Color YELLOW Urine Appearance CLEAR (CLEAR) Urine pH 6.5 (4.5-7.5) Urine Specific [place] 1.019 (1.000-1.030) Urine Protein NEG (NEG) Urine Glucose (UA) NEG (NEG) Urine Ketones 2+ (NEG) Urine Occult Blood NEG (NEG) Urine Nitrite NEG (NEG) Urine Bilirubin NEG (NEG) Urine Urobilinogen NEG (NEG) Urine Leukocyte Esterase TRACE (NEG) Urine WBC (Auto) 10-30 /hpf (0-5) Urine RBC (Auto) 5-10 /hpf (0-4) Urine Hyaline Casts (Auto) 5-10 /lpf (0-5) Urine Epithelial Cells (Auto) >30 /lpf (0-5) Urine Bacteria (Auto) NEG (NEG) Medications Administered Medications (Trade) Dose Ordered Sig/Yasmine Route Start Time Stop Time Status Last Admin Dose Admin Sodium Chloride 1,000 ml @ 999 mls/hr Q1H1M STAT IV 02/11/17 16:23 02/11/17 17:23 DC 02/11/17 16:53 999 MLS/HR Hydromorphone HCl (Dilaudid Inj) 0.5 mg NOW STAT IV 02/11/17 16:40 02/11/17 16:41 DC 02/11/17 16:53 0.5 MG Ondansetron HCl (Zofran Inj) 4 mg NOW STAT IV 02/11/17 16:40 02/11/17 16:41 DC 02/11/17 16:51 4 MG Sodium Chloride 1,000 ml @ 999 mls/hr Q1H1M STAT IV 02/11/17 17:41 02/11/17 18:41 DC 02/11/17 19:04 999 MLS/HR Ondansetron HCl (ZOFRAN ODT 4MG Home Pack) 1 homepack UD ONCE PO 02/11/17 20:45 02/11/17 20:46 DC 02/11/17 20:45 1 HOMEPACK ED Course 16:25 History and physical was performed by myself 16:35 The case was discussed with Dr Phipps who separately performed history and examination 17:30 The patient was reassessed and her pain had improved from /10 to 10. 19:15 The patient was discussed with Dr Wilde Please see Dr Phipps's note for discussions with Dr Weinstein and Dr Sue 2016: Patient was reevaluated with Dr Phipps - the patient is feeling well and resting comfortably. She was demonstrated understanding of follow up and the plan and was happy to be discharged home Medical Decision Prior records/ancillary studies reviewed. Triage Nursing notes reviewed. Additional history obtained from the patient. The patient's history was concerning for right flank pain. Differential diagnosis: Etiologies such as renal colic, appendicitis, diverticulitis, mesenteric ischemia, aortic pathology, infections, inflammatory bowel disease, PUD, biliary pathology, UTI, as well as others were entertained. Physical examination findings: As above. ER treatment provided: Zofran 4mg IV Dilaudid 0.5mg IV On reassessment the patient felt better. Diagnostic interpretation by me: The labs revealed WBC 10.98. Urinalysis revealed RBC consistent with stone and 2 + ketones. Urine will be sent for culture but UA suggestive of skin contamination. Imaging studies: Renal US showed persistent hydronephrosis Consultation: A consultation was placed with obstetrics (Dr Wilde). The case was discussed and diagnostics were reviewed. She recommended discussion with the urologist and recommended discussing with urology to proceed with treating the patient as if she were not . She also recommended having the patient follow up in OB clinic this week. A consultation was placed with urology (Dr Weinstein). The case was discussed by Dr Phipps - please see his note for a record of this discussion. Dr Phipps in addition discussed the case with Dr Sue (her urologist). It appears that the patient has isolated renal colic from a right sided stone. By the evaluation outlined above emergent etiologies such as appendicitis, diverticulitis, mesenteric ischemia, aortic pathology, infections, inflammatory bowel disease, PUD, biliary pathology, UTI, as well as others were deemed relatively unlikely. The patient informed about the findings as listed above. All questions were answered and she was pleased with the treatment. Return instructions were outlined and the patient was discharged in stable condition. Outpatient prescription management: Oxy IR 5mg 1-2 po Q4 hrs prn Referral: The pt was recommended to call [facility] in the morning for follow up regarding her stone. She was recommended to call [facility] in the morning for clearance for urology in the next 1-2 days. [place] Drug Monitoring Program Search Results: patient reviewed within database Medication Reconcilliation Current Medication List: was personally reviewed by vt Blood Pressure Screening Patient's blood pressure: Normal blood pressure Blood pressure disposition: Did not require urgent referral Impression Primary Impression: Renal colic Departure Information Dispostion Home / Self-Care Condition FAIR Prescriptions Oxycodone Ir (Roxicodone Ir) 5 Mg Tab 1-2 TAB PO Q4H Y for Severe Pain, #15 TAB Prov: Skyler Mcmahan MD 02/11/17 Referrals Norm Raygoza D.O. (PCP) Chelo Wilde D.O. Miller, Howard I., MD, Urology Patient Instructions [facility] Additional Instructions KIDNEY STONE INSTRUCTIONS: DO NOT drive, drink alcohol, operate machinery, or perform dangerous activities today. You were given medications in the ER that can affect your ability to safely function or operate a vehicle. Oxycodone (OxyIR) 5mg: Take 1-2 pills every four hours as needed for breakthrough pain. Avoid alcohol, operating machinery or dangerous equipment, working on ladders or roofs, DRIVING, making important decisions, or situations where being under the influence may be dangerous. It is recommended to use an [id number] stool softener such as Colace, 100mg twice daily while taking this medication to avoid constipation. Zofran(odansetron) tablets 4mg: Take one and allow it to dissolve in your mouth every four hours as needed for nausea or vomiting. Acetaminophen(Tylenol) may be used for fever or pain. Use 1000mg every eight hours as needed. Avoid using more than 3000mg in a 24 hour period. This is available over the counter. Read all the package inserts or medication information paperwork provided. If you have any questions or concerns call your primary provider, pharmacist or the ER for assistance. Strain your urine and collect all the stones or debris for the follow up appointment. Rest and avoid strenuous activity until your stone passes and symptoms resolve. Drink plenty of fluids. Return to the ER for worsening abdominal or back pain, vomiting, fevers, passing out, or as needed. Follow up with [facility] (Dr Sue), please call [phone], to arrange a visit Follow up with [facility] [employer], please call in the morning to arrange a follow up visit in the next 1-2 days Resident Tracking Resident Involvement: Resident Care Provided Care Provided: Adult ED
[2017-02-11] MEDS ORDERED: ONDANSETRON INJ 2 MG/ML 2 ML VIAL IV STA (16:40)
[2017-02-11] MEDS ORDERED: HYDROmorphone INJ 0.5 MG/0.5 ML SYR IV STA (16:40)
[2017-02-11 17:02] LABS: BASO % 0.3 %; BASO ABS # 0.03 K/uL (0-0.2); COMPLETE YES; EOS % 0.6 %; HEMATOCRIT 38.3 % (37-47); IG% 0.2 %; LYMPH ABS # 2.64 K/uL (1.2-3.4); MEAN CELL VOLUME 87.6 fL (80-100); MEAN CORPUSCULAR HGB CONC 34.2 g/dl (32-36); MEAN PLATELET VOLUME 11.7 fL (7.4-10.4); MONO % 5.3 %; NEUT % 69.6 %; PLATELET COUNT 226 K/uL (130-400); RED BLOOD COUNT 4.37 M/uL (4.2-5.4); WHITE BLOOD COUNT 10.99 K/uL (4.8-10.8)
[2017-02-11 17:29] LABS: ALB/GLOB RATIO 0.7 (0.9-2); BUN/CREATININE RATIO 9.1 (10-20); CALCIUM 9.1 mg/dl (8.5-10.1); CREATININE 0.66 mg/dl (0.60-1.20); POTASSIUM 3.6 mmol/L (3.5-5.1)
[2017-02-11 17:38] LABS: MANUAL MICROSCOPIC REQUIRED? NO; REVIEW REQ? NO; URINE APPEARANCE CLEAR (CLEAR); URINE BILIRUBIN NEG (NEG); URINE COLOR YELLOW; URINE EPITHELIAL CELL AUTO >30 /lpf (0-5); URINE NITRITE NEG (NEG); URINE PH 6.5 (4.5-7.5); URINE SPECIFIC GRAVITY 1.019 (1.000-1.030); UROBILINOGEN NEG (NEG); ZZUR CULT IF INDIC CLEAN CATCH YES
--- NOTE | 2017-02-11 19:21 | DIAGNOSTIC IMAGING REPORT ---
(RENAL)RETROPERITON COMP HISTORY: 32 years-old Female right flank pain, known nephrolithiasis ?hydro COMPARISON: Renal ultrasound 02/10/2017 TECHNIQUE: Multiple real-time sonographic images of the kidneys and urinary bladder were obtained assessing grayscale appearance and color flow FINDINGS: The right kidney measures 11.9 x 5.8 x 7.1 cm. Mild dilation of the proximal right ureter, renal pelvis, Central and peripheral calyces is again seen without significant change from comparison study yesterday. No obstructing stone or mass is identified. Cortical medullary differentiation is within normal limits. The left kidney measures 12.8 x 6.5 x 7.5 cm and appears unremarkable without hydronephrosis, calculus or abnormal appearing parenchyma. The urinary bladder is unremarkable with bilateral ureteral jets documented. IMPRESSION: 1. Persistent right-sided hydronephrosis with mild dilation of the proximal right ureter, suspicious for distal obstructing process or stone which is not imaged. This could be correlated with a follow-up CT abdomen and pelvis without contrast. 2. Unremarkable sonographic appearance of the left kidney and urinary bladder. The above report was generated using voice recognition software. It may contain grammatical, syntax or spelling errors. Electronically signed by: Von Erazo M.D. 02/11/2017 7:20 PM Dictated Date/Time: 02/11/2017 7:17 PM
[2017-02-11 20:12] VITALS: BP 122/66; PULSE 78; O2SAT 96
[2017-02-11] MEDS ORDERED: OXYC1TAB3 PO (20:29)
[2017-02-11] MEDS ORDERED: ONDANSETRON HOME PACK 4MG OD TAB PO ONE (20:45)
--- NOTE | 2017-02-11 22:47 | EMERGENCY ROOM VISIT NOTE ---
History Report prepared by Raina: Janel Ballard Under the Supervision of: Dr. Zhou Phipps D.O. First contact with patient: 16:22 Chief Complaint: FLANK PAIN Stated Complaint: FLANK PAIN History of Present Illness The patient is a 32 year old female who presents to the Emergency Room with complaints of persistent flank pain since 0300 yesterday morning. She rates her discomfort as a 7/10 in severity. OxyContin has provided minimal relief. She reports she started experiencing hematuria in early October 2016. She went to several ED's and was finally set up for an appointment with NICK Chavez , [facility]. She was scheduled to undergo a lithotripsy after a 7 mm right sided stone was seen on CT. She was unable to undergo the lithotripsy as she found out that she is 9 weeks with her 3rd . She is now waiting to see if EMPLOYMENT ASSISTANT will approve her going forward with treatment for the stone. The patient denies headache, change in vision, fevers, chest pain, shortness of breath, nausea, vomiting, diarrhea, pain with urination, and melena. She also denies any recent vaginal bleeding or discharge. Review of Systems See HPI for pertinent positives & negatives. A total of 10 systems reviewed and were otherwise negative. Past Medical & Surgical Medical Problems: (1) PCOS (polycystic ovarian syndrome) (2) Pituitary adenoma (3) UTI (urinary tract infection) Family History Diabetes mellitus Heart disease Hypertension Kidney disease Kidney stones Social History Smoking Status: Never Smoker Drug Use: none Marital Status: in relationship Housing Status: lives with family Occupation Status: employed Current/Historical Medications Scheduled Multivit/Min/Iron/Fol Ac/Pren ( Vitamin), 1 TAB PO DAILY Scheduled PRN Oxycodone Immediate Rel Tab (Roxicodone Ir), 1-2 TAB PO Q4H PRN for Severe Pain Oxycodone Ir (Roxicodone Ir), 1-2 TAB PO Q4H PRN for Severe Pain Allergies Coded Allergies: Meperidine (Verified Allergy, Severe, tongue swelling, 02/10/17) Adhesives (Verified Allergy, Mild, PEELED SKIN OFF WITH PLASTIC TAPE, 02/10) Iroquois Nut (Unverified Allergy, Unknown, TONGUE SWELLING, 02/10/17) Physical Exam Vital Signs Date Time Temp Pulse Resp B/P (MAP) Pulse Ox O2 Delivery O2 Flow Rate FiO2 02/11/17 20:12 78 18 122/66 96 Room Air 02/11/17 18:36 67 16 126/66 99 Room Air 02/11/17 16:55 80 18 130/92 97 Room Air 02/11/17 14:42 36.7 72 18 134/73 98 Room Air Physical Exam GENERAL: Patient is sitting up in bed, alert, uncomfortable appearing, disheveled, well nourished, no distress, non-toxic EYE EXAM: normal conjunctiva OROPHARYNX: no exudate, no erythema, lips, buccal mucosa, and tongue normal and mucous membranes are moist NECK: supple, no nuchal rigidity, no adenopathy, non-tender LUNGS: Clear to auscultation. Normal chest wall mechanics HEART: no murmurs, S1 normal and S2 normal ABDOMEN: abdomen soft, non-tender, normo-active bowel sounds, no masses, no rebound or guarding. BACK: Back is symmetrical on inspection and there is no deformity, no midline tenderness, no CVA tenderness. SKIN: no rashes and no bruising UPPER EXTREMITIES: upper extremities are grossly normal. LOWER EXTREMITIES: No pitting edema. Calves are equal bilaterally. NEURO EXAM: Normal sensorium, cranial nerves II-XII intact, normal speech, no weakness of arms, no weakness of legs. Gross sensation intact. Medical Decision & Procedures ER Provider Diagnostic Interpretation: Radiology results as stated below per my review and the radiologist's interpretation: (RENAL) RETROPERITON COMP HISTORY: 32 years-old Female right flank pain, known nephrolithiasis ?hydro COMPARISON: Renal ultrasound 02/10/2017 TECHNIQUE: Multiple real-time sonographic images of the kidneys and urinary bladder were obtained assessing grayscale appearance and color flow FINDINGS: The right kidney measures 11.9 x 5.8 x 7.1 cm. Mild dilation of the proximal right ureter, renal pelvis, Central and peripheral calyces is again seen without significant change from comparison study yesterday. No obstructing stone or mass is identified. Cortical medullary differentiation is within normal limits. The left kidney measures 12.8 x 6.5 x 7.5 cm and appears unremarkable without hydronephrosis, calculus or abnormal appearing parenchyma. The urinary bladder is unremarkable with bilateral ureteral jets documented. IMPRESSION: 1. Persistent right-sided hydronephrosis with mild dilation of the proximal right ureter, suspicious for distal obstructing process or stone which is not imaged. This could be correlated with a follow-up CT abdomen and pelvis without contrast. 2. Unremarkable sonographic appearance of the left kidney and urinary bladder. The above report was generated using voice recognition software. It may contain grammatical, syntax or spelling errors. Electronically signed by: Von Erazo M.D. 02/11/2017 7:20 PM Laboratory Results 02/11/17 16:46 Red Blood Count 4.37, Mean Corpuscular Volume 87.6, Mean Corpuscular Hemoglobin 30.0, Mean Corpuscular Hemoglobin Concent 34.2, Mean Platelet Volume 11.7, Neutrophils (%) (Auto) 69.6, Lymphocytes (%) (Auto) 24.0, Monocytes (%) (Auto) 5.3, Eosinophils (%) (Auto) 0.6, Basophils (%) (Auto) 0.3, Neutrophils # (Auto) 7.65, Lymphocytes # (Auto) 2.64, Monocytes # (Auto) 0.58, Eosinophils # (Auto) 0.07, Basophils # (Auto) 0.03 02/11/17 16:46 Test 02/11/17 16:46 02/11/17 17:10 White Blood Count 10.99 K/uL (4.8-10.8) Red Blood Count 4.37 M/uL (4.2-5.4) Hemoglobin 13.1 g/dL (12.0-16.0) Hematocrit 38.3 % (37-47) Mean Corpuscular Volume 87.6 fL (80-100) Mean Corpuscular Hemoglobin 30.0 pg (25-34) Mean Corpuscular Hemoglobin Concent 34.2 g/dl (32-36) Platelet Count 226 K/uL (130-400) Mean Platelet Volume 11.7 fL (7.4-10.4) Neutrophils (%) (Auto) 69.6 % Lymphocytes (%) (Auto) 24.0 % Monocytes (%) (Auto) 5.3 % Eosinophils (%) (Auto) 0.6 % Basophils (%) (Auto) 0.3 % Neutrophils # (Auto) 7.65 K/uL (1.4-6.5) Lymphocytes # (Auto) 2.64 K/uL (1.2-3.4) Monocytes # (Auto) 0.58 K/uL (0.11-0.59) Eosinophils # (Auto) 0.07 K/uL (0-0.5) Basophils # (Auto) 0.03 K/uL (0-0.2) RDW Standard Deviation 48.8 fL (36.4-46.3) RDW Coefficient of Variation 15.1 % (11.5-14.5) Immature Granulocyte % (Auto) 0.2 % Immature Granulocyte # (Auto) 0.02 K/uL (0.00-0.02) Anion Gap 9.0 mmol/L (3-11) Est Creatinine Clear Calc Drug Dose 177.7 ml/min Estimated GFR () 137.4 Estimated GFR (Non- 118.5 BUN/Creatinine Ratio 9.1 (10-20) Calcium Level 9.1 mg/dl (8.5-10.1) Total Bilirubin 0.2 mg/dl (0.2-1) Aspartate Amino Transf (AST/SGOT) 18 U/L (15-37) Alanine Aminotransferase (ALT/SGPT) 17 U/L (12-78) Alkaline Phosphatase 87 U/L (45-117) Total Protein 7.7 gm/dl (6.4-8.2) Albumin 3.1 gm/dl (3.4-5.0) Globulin 4.6 gm/dl (2.5-4.0) Albumin/Globulin Ratio 0.7 (0.9-2) Human Chorionic Gonadotropin, Quant [id number] mIU/mL Chemistry Specimen Hemolysis Urine Color YELLOW Urine Appearance CLEAR (CLEAR) Urine pH 6.5 (4.5-7.5) Urine Specific Rumely 1.019 (1.000-1.030) Urine Protein NEG (NEG) Urine Glucose (UA) NEG (NEG) Urine Ketones 2+ (NEG) Urine Occult Blood NEG (NEG) Urine Nitrite NEG (NEG) Urine Bilirubin NEG (NEG) Urine Urobilinogen NEG (NEG) Urine Leukocyte Esterase TRACE (NEG) Urine WBC (Auto) 10-30 /hpf (0-5) Urine RBC (Auto) 5-10 /hpf (0-4) Urine Hyaline Casts (Auto) 5-10 /lpf (0-5) Urine Epithelial Cells (Auto) >30 /lpf (0-5) Urine Bacteria (Auto) NEG (NEG) Laboratory results per my review. Medications Administered Medications (Trade) Dose Ordered Sig/Yasmine Route Start Time Stop Time Status Last Admin Dose Admin Sodium Chloride 1,000 ml @ 999 mls/hr Q1H1M STAT IV 02/11/17 16:23 02/11/17 17:23 DC 02/11/17 16:53 999 MLS/HR Hydromorphone HCl (Dilaudid Inj) 0.5 mg NOW STAT IV 02/11/17 16:40 02/11/17 16:41 DC 02/11/17 16:53 0.5 MG Ondansetron HCl (Zofran Inj) 4 mg NOW STAT IV 02/11/17 16:40 02/11/17 16:41 DC 02/11/17 16:51 4 MG Sodium Chloride 1,000 ml @ 999 mls/hr Q1H1M STAT IV 02/11/17 17:41 02/11/17 18:41 DC 02/11/17 19:04 999 MLS/HR Ondansetron HCl (ZOFRAN ODT 4MG Home Pack) 1 homepack UD ONCE PO 02/11/17 20:45 02/11/17 20:46 DC 02/11/17 20:45 1 HOMEPACK ED Course ED COURSE: Vital signs were reviewed and showed normal vital signs. The patients medical record was reviewed The above diagnostic studies were performed and reviewed. ED treatments and interventions as stated above. 1623: NSS 1000 ml @ 999 mls/hr IV. 1640: Zofran 4 mg IV, Dilaudid 0.5 mg IV. 1651: The patient was evaluated in room C9. A complete history and physical examination was performed. 1741: NSS 1000 ml @ 999 mls/hr IV. 1950: I discussed the patients case with Dr. Weinstein [facility]. He recommends the patient be further evaluated by the hospital medicine team if her pain is uncontrolled. 2009: I discussed the patients case with Dr. Sue [facility]. He recommends we consult with EMPLOYMENT ASSISTANT and get their recommendation. 2016: Upon reevaluation, the patient is feeling well and resting comfortably. I discussed my findings with the patient and she understands and agrees with the treatment plan. I will arrange for follow up with both EMPLOYMENT ASSISTANT and Urology within the next 2 days. 2045: Zofran 4 mg 1 homepack PO. Based on the patients age, coexisting illnesses, exam and lab findings the decision to treat as an outpatient was made. The patient remained stable while under my care. The patient appeared well at the time of discharge. Medical Decision Differential diagnoses includes but is not limited to gastritis, peptic ulcer disease, GERD, gallbladder disease, pancreatitis, small bowel obstruction, acute coronary syndrome, pericarditis, ischemic bowel, irritable bowel disease, irritable bowel syndrome, appendicitis, diverticulitis, malignancy, hernia, urinary tract infection, torsion, /ectopic , perforation, trauma, infectious. Patient is a 32-year-old female who was diagnosed in mid December with a 7 mm proximal ureter stone. She is found to be and has been following up with urology. Currently their plan was to wait until second trimester prior to any intervention. Patient was seen here yesterday and returns again today with the same pain which is worsening. Ultrasound shows mild hydro-and UA does suggest a stone. No signs of infection. No leukocytosis or fevers. Labs were otherwise fairly unremarkable. Beta hCG was elevated as expected. Patient was given IV Dilaudid with improvement of her pain. I discussed the case with Dr. Bass from urology and Dr. Sue who has been following her as an outpatient. My resident also discussed case with OB. At this time OB feels/we'll defer to urology for further management and possible intervention. I discussed this with Dr. Sue. As the patient is feeling comfortable she prefers to go home. Dr. Bass notes that he will be uncomfortable performing any procedure. Dr. Sue as he has been following her is comfortable but awaiting OB to agree. Tonight it does appear as though OB is more agreeable as they are deferring to urology. Patient's pain is controlled. Dr. Sue is unable to perform the procedure tomorrow and consequently the patient would like to go home. I do feel this is reasonable. Discussed with manager case's and they will attempt to set up an appointment with OB and urology tomorrow. Discussed with Pt concerning signs and symptoms to watch out for. Pt was instructed to follow up with their PCP and discussed with the patient their option to return to the ED at anytime for persistent or worsening symptoms. The appropriate anticipatory guidance and out-patient management, including indications for return to the emergency department, were explained at length to the patient and understood. Medication Reconcilliation Current Medication List: was personally reviewed by me Blood Pressure Screening Patient's blood pressure: Normal blood pressure Blood pressure disposition: Did not require urgent referral Consults Time Called: 1944 [facility] Returned Call: 1949 I discussed the patients case with [facility]. He recommends the patient be further evaluated by the hospital medicine team if her pain is uncontrolled. Additional Consults: Time Called: 2004 Consulted Physician: [facility] Returned Call: 2009 Additional Comments: I discussed the patients case with [facility]. He recommends we consult with EMPLOYMENT ASSISTANT and get their recommendation. Impression Primary Impression: Renal colic Additional Impression: IUP (intrauterine ), incidental Scribe Attestation The scribe's documentation has been prepared under my direction and personally reviewed by me in its entirety. I confirm that the note above accurately reflects all work, treatment, procedures, and medical decision making performed by me. Departure Information Dispostion Home / Self-Care Prescriptions Oxycodone Ir (Roxicodone Ir) 5 Mg Tab 1-2 TAB PO Q4H Y for Severe Pain, #15 TAB Prov: Skyler Mcmahan MD 02/11/17 Referrals Norm Raygoza D.O. (PCP) Patient Instructions My [facility] Additional Instructions KIDNEY STONE INSTRUCTIONS: DO NOT drive, drink alcohol, operate machinery, or perform dangerous activities today. You were given medications in the ER that can affect your ability to safely function or operate a vehicle. Oxycodone (OxyIR) 5mg: Take 1-2 pills every four hours as needed for breakthrough pain. Avoid alcohol, operating machinery or dangerous equipment, working on ladders or roofs, DRIVING, making important decisions, or situations where being under the influence may be dangerous. It is recommended to use an pons-are-rxiuaae stool softener such as Colace, 100mg twice daily while taking this medication to avoid constipation. Zofran(odansetron) tablets 4mg: Take one and allow it to dissolve in your mouth every four hours as needed for nausea or vomiting. Acetaminophen(Tylenol) may be used for fever or pain. Use 1000mg every eight hours as needed. Avoid using more than 3000mg in a 24 hour period. This is available over the counter. Read all the package inserts or medication information paperwork provided. If you have any questions or concerns call your primary provider, pharmacist or the ER for assistance. Strain your urine and collect all the stones or debris for the follow up appointment. Rest and avoid strenuous activity until your stone passes and symptoms resolve. Drink plenty of fluids. Return to the ER for worsening abdominal or back pain, vomiting, fevers, passing out, or as needed. Follow up with [facility] (Dr Sue), please call [phone], to arrange a visit Follow up with [facility], please call in the morning to arrange a follow up visit in the next 1-2 days Problem Qualifiers
--- NOTE | 2017-02-13 17:42 | Pharmacy Progress Note ---
ED Pharmacist Culture FollowUp Date of Service: Feb 13, 2017. Spoke with Dr. Phipps r/e positive urine culture. Would like to treat with cephalexin. Dr. Phipps spoke w Dr. Sue (urology) who is aware of the culture and the plan to treat with cephalexin. He noted surgery was planned for next ( ~8 days from now). Called patient regarding urine culture. No answer, left message to call back and provided ED phone number. Plan is to start the following, once patient can be reached: Cephalexin 500 mg po QID x10 days, 0 refill, Dr. Phipps
[2017-02-13] MEDS ORDERED: CEPHALEXIN MONOHYDRATE 500 MG CAP PO ONE (19:00)
[2017-02-21] MEDS ORDERED: ONDA4TAB46 PO (09:33)
[2017-02-21] MEDS ORDERED: OXYC1CAP5 PO (11:37)
== END 2017-02-11 20:38 | disposition home or self-care (01) ==
LOC: C.EDB 14:33 → C.EDC 20:38
DX: O99.89 Other specified diseases and conditions complicating pregnancy, childbirth and the puerperium (principal); N20.1 Calculus of ureter; N23 Unspecified renal colic; Z3A.09 9 weeks gestation of pregnancy; E28.2 Polycystic ovarian syndrome; Z87.440 Personal history of urinary (tract) infections; Z83.3 Family history of diabetes mellitus; Z82.49 Family history of ischemic heart disease and other diseases of the circulatory system; Z84.1 Family history of disorders of kidney and ureter

== ENCOUNTER → 2017-02-21 | Day surgery (SDC) | payer OTHER ==
[2017-02-14 10:06] VITALS: BMI 44.0
[~2017-02-21] VITALS: Ht 170.2 cm; Wt 129.5 kg
[~2017-02-21] MED LIST changes: +ATROPINE SULFATE 0.1 MG/ML 5ML SYR IV PRN; +CEFAZOLIN 3000 MG/65 ML D5W IV SCH; +CEFD300C2 PO; +CONRAY 30% 150ML BOTTLE ONE; +DEXAMETHASONE SOD INJ 4 MG/ML VIAL ONE; +EpHEDrine SULFATE INJ 50 MG/ML AMP IV PRN; +FENTANYL CITRATE INJ 50 MCG/1 ML 2 ML VIAL ONE; +FLUMAZENIL 0.1 MG/1 ML 10 ML VIAL IV PRN; +HYDROmorphone INJ 1 MG/ML SYR ONE; +HYDROmorphone INJ 2 MG/ML SYR/VIAL IV PRN; +LABETALOL HCL IV 5 MG/ML 20ML IV PRN; +LACTATED RINGER'S 1000ML 1,000 ML IV SCH; +LIDOCAINE HCL 2% 2 ML VIAL (20MG/ML) ONE; +METOCLOPRAMIDE HCL INJ 5 MG/ML 2 ML VIAL ONE; +MIDAZOLAM HCL 1 MG/ML 2ML VIAL ONE; +NALOXONE HCL 0.4 MG/1 ML VIAL/CARP IV PRN; +ONDA4TAB46 PO; +ONDANSETRON INJ 2 MG/ML 2 ML VIAL IV PRN; +ONDANSETRON INJ 2 MG/ML 2 ML VIAL ONE; +OXYC-609 PO; +OXYC1CAP5 PO; -OXYC1TAB3 PO; +OXYCODONE/ACETAMINOPHEN 5-325 TAB PO PRN; +PHENYLEPHRINE 100MCG/ML 5ML SYR IV PRN; +PROPOFOL IV EMULSION 10 MG/ML 20 ML VIAL IV ONE; +ROCURONIUM BROMIDE 10 MG/ML 5 ML VIAL IV ONE; +SUCCINYLCHOLINE 100MG/5ML SYR IV ONE
[2017-02-21 09:30] VITALS: BP 154/82; PULSE 76; TEMP 37.3; O2SAT 99; Ht 170.2 cm; Wt 129.5 kg
--- NOTE | 2017-02-21 09:49 | History & Physical Bridge Note ---
H&P Re-Evaluation Bridge Note: I have examined the patient, reviewed the History & Physical and in the interval since the performance of the History & Physical I have noted the following changes of clinical significance: No changes noted
--- NOTE | 2017-02-21 11:25 | DIAGNOSTIC IMAGING REPORT ---
KUB CLINICAL HISTORY: Cysto, Right ureteroscopy, laser lithotripsy, and stent placemen stent placement TECHNIQUE: Image intensifier COMPARISON STUDY: None FINDINGS: Image intensifier usage for laser lithotripsy and stent placement IMPRESSION: Image intensifier usage for stent placement and potential lithotripsy The above report was generated using voice recognition software. It may contain grammatical, syntax or spelling errors. Electronically signed by: Gavino Cronin M.D. 02/21/2017 11:23 AM Dictated Date/Time: 02/21/2017 11:23 AM
--- NOTE | 2017-02-21 11:28 | Discharge Instructions ---
Discharge Instructions Date of Service Feb 21, 2017. Admission Reason for Admission: Stones Discharge Discharge Diagnosis / Problem: R stones in s/p uscope, laser litho, stent Discharge Goals Goal(s): Decrease discomfort, Improve disease control, Therapeutic intervention Activity Recommendations Activity Limitations: as noted below Lifting Limitations: no more than 25 pounds, gradually increase as tolerated Exercise/Sports Limitations: rest today, gradually increase as tolerated May Resume Sexual Activity: after follow-up appointment Shower/Bathe: no limitations (no tub bath) Driving or Machine Use: resume 1 day after discharge . Instructions / Follow-Up Instructions / Follow-Up As scheduled for removal of stent No new prescriptions provided Discharge Diet Recommended Diet: Regular Diet (good fluid intake) Procedures Procedures Performed: Cystoscopy, Right Semi-rigid and Flexibile Ureteroscopy, Laser Lithotripsy, Basket Stone Extraction, and Insertion of Right Ureteral Stent Pending Studies Studies pending at discharge: yes List of pending studies: Stone analysis Medical Emergencies . Who to Call and When: Medical Emergencies: If at any time you feel your situation is an emergency, please call 911 immediately. . Non-Emergent Contact Non-Emergency issues call your: Urologist Call Non-Emergent contact if: you have a fever, temperature is above 101, your pain is not controlled, your pain is worsening, your pain is unusual for you, your pain is concerning you, you have any medication questions . . "Provider Documentation" section prepared by Harsh Sue. . VTE Core Measure Inpt VTE Proph given/why not?: SCD's [place] Drug Monitoring Program Search Results: patient reviewed within database, see additional documentation (regular Rx for pain meds, requests new Rx as took last one per report)
[2017-02-21] MEDS: FENTANYL CITRATE INJ 50 MCG/1 ML 2 ML VIAL IV PRN ×2 (11:30→11:35)
--- NOTE | 2017-02-21 11:33 | [facility] Operative Report ---
Operative Report Operative Date Feb 21, 2017. Pre-Operative Diagnosis Right ureteral stone in with intractable colic Post-Operative Diagnosis Same Procedure(s) Performed Cystoscopy, Right Semi-rigid and Flexibile Ureteroscopy, Laser Lithotripsy, Basket Stone Extraction, and Insertion of Right Ureteral Stent Surgeon Dr. Summer Sue [employer] Clocks Repairer Surgeon(s) NONE Estimated Blood Loss 0 ml Findings No residual stone fragments, no ureteral injury noted, good stent position on visualization and spot fluoroscopy, 3 sec of fluoro used Specimens A: Ureteral Stone fragments for chemical analysis Drains 6 fr multilength stent with string Anesthesia GALMA Complication(s) None Disposition Recovery Room / PACU Indications 32-year-old female who had seen as an outpatient for history of right- sided 7 mm stone found to be prior to extracorporal shockwave lithotripsy. Patient's failed conservative management with multiple ER visits and, after clearance with anesthesia and Ob services we are proceeding with endoscopic management for stone due to her poorly controlled renal colic. OB on -call has been contacted and no viability scan or monitoring is felt to be needed at this stage of her . Pelvic shielding undertaken with minimal use of fluoroscopy, 3 seconds total course the entire procedure. This was focused in the right upper quadrant. Intravenous antibiotic provided in the form of Ancef per OB recommendations. Please see H&P for further details. SCDs used for DVT prophylaxis. Description of Procedure Patient was properly identified and brought to the operative suite after identification of appropriate consent of the chart. General anesthesia with laryngeal mask was initiated and patient was prepped and draped in standard fashion for this procedure. Full timeout procedure was followed. Cystoscope was passed into the bladder under direct visualization and bladder was surveyed in its entirety including 30 and 70 lenses demonstrating no intravesical lesions, papillary masses or mucosal abnormalities. Ureteral orifices were appreciated in the normal anatomic location bilaterally. Sensor tip wire was advanced into the right ureteral orifice until resistance was met. Spot fluoroscopy demonstrated a redundant wire at the level of the right kidney in the right upper quadrant. This is felt to be consistent with good guidewire location and this was kept until the end of the case as a safety wire. Semirigid ureteroscope was able to be advanced into the ureter over a working wire and distal ureteroscopy was performed up to the mid ureter with no stone being encountered. Working wire was advanced through the semirigid ureteroscope under direct visualization and ureteroscope was backloaded off the wire. A 05/30 28 cm ureteral access sheath was advanced with minimal resistance into the right ureter over the working wire. Fiberoptic flexible ureteroscope was advanced over the working wire and up to the kidney. Nephro pyeloscopy was performed using the flexible ureteroscope demonstrating good guidewire location within the collecting system and no renal stones. No evidence of injury to the collecting system the kidney was noted. Ureteroscope was right down to the proximal ureter where a 7 mm stone consistent with the patient's prior KUB findings was encountered. This was fragmented into smaller pieces using a 200 laser fiber at settings of 0.6 W and 8 Hz. These were then able to be grasped using an open-ended basket and extracted from the patient to be sent for chemical analysis. After this was complete pyeloscopy was repeated demonstrating no retropulsed stone fragments. Complete exit ureteroscopy was performed including removal of the access sheath demonstrating no ureteral injury, residual stone fragments or tumors. Tightness of the ureter consistent with edema at the site of the stone was noted. On completion of exit ureteroscopy cystoscope was backloaded over the safety wire and a 6 Faroese multilength ureteral stent with a string intact was advanced. Spot fluoroscopy was used to confirm the presence of stent loop within the right upper quadrant. Full coil was present within the bladder. Hydronephrotic drip was noted. Bladder was drained and cystoscope was removed. String to the stent was secured using benzoin and Steri-Strips to the right labia majora. Anesthesia was reversed patient's transient recovery room in stable condition. Follow-up care: Patient to be discharged home with a fresh prescription for pain medication per her request today. No further antibiotics beyond perioperative dosing. Outpatient appointment for stent removal was confirmed. No imaging is planned at this time. I attest to the content of the Intraoperative Record and any orders documented therein. Any exceptions are noted below.
--- NOTE | 2017-02-21 11:49 | Anesthesiology Progress Note ---
Anesthesia Post Op Note Date & Time Feb 21, 2017 at 11:49 Vital Signs Pain Intensity: 3 Vital Signs Past 12 Hours Date Time Temp Pulse Resp B/P (MAP) Pulse Ox O2 Delivery O2 Flow Rate FiO2 02/21/17 11:35 87 15 164/91 98 Room Air 02/21/17 11:30 86 16 162/82 100 Oxymask 10 02/21/17 11:25 84 21 160/89 100 Oxymask 10 02/21/17 11:20 91 20 159/91 100 Oxymask 10 02/21/17 11:13 36.2 92 16 157/98 99 Oxymask 10 02/21/17 09:30 37.3 76 20 154/82 (106) 99 Room Air Notes Mental Status: alert / awake / arousable, participated in evaluation Pt Amnestic to Procedure: Yes Nausea / Vomiting: adequately controlled Pain: adequately controlled, improving with treatment Airway Patency, RR, SpO2: stable & adequate BP & HR: stable & adequate Hydration State: stable & adequate Anesthetic Complications: no major complications apparent
[2017-02-21 12:15] VITALS: BP 154/86; PULSE 76; TEMP 37.4; O2SAT 95
[2017-02-21 12:45] VITALS: BP 147/84; PULSE 88; O2SAT 96
[2017-02-21 13:15] VITALS: BP 144/84; PULSE 79; TEMP 37.1; O2SAT 96
== END | disposition home or self-care (01) ==
LOC: C.ACU 09:19
PROVIDERS: ATTEND Urology
DX: O26.899 Other specified pregnancy related conditions, unspecified trimester (principal); N20.1 Calculus of ureter; O24.419 Gestational diabetes mellitus in pregnancy, unspecified control; O34.219 Maternal care for unspecified type scar from previous cesarean delivery; O09.299 Supervision of pregnancy with other poor reproductive or obstetric history, unspecified trimester; O09.219 Supervision of pregnancy with history of pre-term labor, unspecified trimester; Z87.891 Personal history of nicotine dependence

== ENCOUNTER 2017-02-28 06:41 | Emergency (ER) | payer OTHER ==
[~2017-02-28] VITALS: Ht 170.2 cm; Wt 132.5 kg
[~2017-02-28 06:41] MED LIST changes: -ATROPINE SULFATE 0.1 MG/ML 5ML SYR IV PRN; -CEFAZOLIN 3000 MG/65 ML D5W IV SCH; -CEFD300C2 PO; -CONRAY 30% 150ML BOTTLE ONE; -DEXAMETHASONE SOD INJ 4 MG/ML VIAL ONE; -EpHEDrine SULFATE INJ 50 MG/ML AMP IV PRN; -FENTANYL CITRATE INJ 50 MCG/1 ML 2 ML VIAL ONE; -FLUMAZENIL 0.1 MG/1 ML 10 ML VIAL IV PRN; -HYDROmorphone INJ 1 MG/ML SYR ONE; -HYDROmorphone INJ 2 MG/ML SYR/VIAL IV PRN; -LABETALOL HCL IV 5 MG/ML 20ML IV PRN; -LACTATED RINGER'S 1000ML 1,000 ML IV SCH; -LIDOCAINE HCL 2% 2 ML VIAL (20MG/ML) ONE; -METOCLOPRAMIDE HCL INJ 5 MG/ML 2 ML VIAL ONE; -MIDAZOLAM HCL 1 MG/ML 2ML VIAL ONE; -NALOXONE HCL 0.4 MG/1 ML VIAL/CARP IV PRN; -ONDANSETRON INJ 2 MG/ML 2 ML VIAL IV PRN; -ONDANSETRON INJ 2 MG/ML 2 ML VIAL ONE; -OXYC-609 PO; -OXYC1CAP5 PO; -OXYCODONE/ACETAMINOPHEN 5-325 TAB PO PRN; -PHENYLEPHRINE 100MCG/ML 5ML SYR IV PRN; -PROPOFOL IV EMULSION 10 MG/ML 20 ML VIAL IV ONE; -ROCURONIUM BROMIDE 10 MG/ML 5 ML VIAL IV ONE; -SUCCINYLCHOLINE 100MG/5ML SYR IV ONE
[2017-02-28 06:45] VITALS: PULSE 107; TEMP 36.8; O2SAT 96; Ht 170.2 cm; Wt 132.5 kg
[2017-02-28] MEDS ORDERED: SODIUM CHLORIDE 0.9% 1000ML 500 ML IV STA (06:51)
[2017-02-28] MEDS ORDERED: ONDANSETRON INJ 2 MG/ML 2 ML VIAL IV STA (06:55)
[2017-02-28] MEDS ORDERED: SODIUM CHLORIDE 0.9% 1000ML 1,000 ML IV STA (06:55)
[2017-02-28] MEDS ORDERED: CEFTRIAXONE SOD INJ 1 GM ADDVIAL IV STA (06:59)
[2017-02-28] MEDS ORDERED: HYDROmorphone INJ 2 MG/ML SYR/VIAL IV PRN (07:00)
--- NOTE | 2017-02-28 07:01 | EMERGENCY ROOM VISIT NOTE ---
History Report prepared by Raina: Sommer Hankins Under the Supervision of: Dr. Ze Benitez M.D. First contact with patient: 06:49 Chief Complaint: FEVER Stated Complaint: FEVER,FLANK PAIN History of Present Illness The patient is a 32 year old female who presents to the Emergency Room with complaints of a fever beginning 1700 last night. The patient reports taking Tylenol for her fever but that it came back several hours later. The patient also complains of right-sided flank pain (6/10) and that it burden when she urinates. She rates her flank pain at a 7/10. The patient reports that she has been vomiting, but believes that it is related to medications and her . The patient is currently at 12 weeks. She was seen in the ED in late january for a kidney stone. She had the stone removed and a stent placed 1 week ago--the stent was removed 2 days ago. She is not on any antibiotics. Source of History: patient Onset: 1700 last night Position: other (global) Quality: other (fever) Timing: waxes/wanes Associated Symptoms: + vomiting, + abdominal pain (right-sided flank pain), + urinary symptoms (burning with urination) Review of Systems See HPI for pertinent positives & negatives. A total of 10 systems reviewed and were otherwise negative. Past Medical & Surgical Medical Problems: (1) PCOS (polycystic ovarian syndrome) (2) Pituitary adenoma (3) UTI (urinary tract infection) Family History Diabetes mellitus Heart disease Hypertension Kidney disease Kidney stones Social History Smoking Status: Never Smoker Drug Use: none Marital Status: in relationship Housing Status: lives with family Occupation Status: employed Current/Historical Medications Scheduled Cefdinir (Omnicef), 300 MG PO Q12H Multivit/Min/Iron/Fol Ac/Pren ( Vitamin), 1 TAB PO HS Scheduled PRN Oxycodone HCl (Oxycodone HCl), 5 MG PO Q4 PRN for Pain Allergies Coded Allergies: Meperidine (Verified Allergy, Severe, tongue swelling, 02/21/17) Adhesives (Verified Allergy, Mild, PEELED SKIN OFF WITH PLASTIC TAPE, ) Morphine (Verified Allergy, Unknown, "CRUSHING CHEST PAIN", THROAT SWELLING, 02/21/17) [place] Nut (Verified Allergy, Unknown, TONGUE SWELLING, 02/21/17) Physical Exam Vital Signs Date Time Temp Pulse Resp B/P (MAP) Pulse Ox O2 Delivery O2 Flow Rate FiO2 02/28/17 06:45 36.8 107 16 145/99 96 Room Air Physical Exam GENERAL: Patient is in no acute distress. HEENT: No acute trauma, normocephalic atraumatic, mucous membranes moist, no nasal congestion, no scleral icterus. NECK: No stridor, no adenopathy, no meningismus, trachea is midline. LUNGS: Clear to auscultation bilaterally, no wheeze, no rhonchi, breath sounds equal. HEART: Without murmurs gallops or rubs, regular rate and rhythm. ABDOMEN: Soft, nontender, bowel sounds positive, no hernias, no peritonitis. BACK: Right flank discomfort with percussion. EXTREMITIES: No cyanosis or edema, full range of motion of all the joints without pain or difficulty, no signs for acute trauma. NEUROLOGIC: Oriented x 3, no acute motor or sensory deficits, no focal weakness. SKIN: No rash, no jaundice, no diaphoresis. Medical Decision & Procedures ER Provider Diagnostic Interpretation: Radiology results as stated below per my review and radiologist interpretation: RENAL ULTRASOUND HISTORY: Fever. FLANK PAIN COMPARISON: Renal ultrasound 02/11/2017. FINDINGS: Right kidney: 11.5 cm. No significant change in mild right hydronephrosis. Normal corticomedullary differentiation and cortical thickness. Left kidney: 12.3 cm. No hydronephrosis. Normal corticomedullary differentiation and cortical thickness. Bladder: No bladder wall thickening. The bilateral ureteral jets were identified. IMPRESSION: 1. No change in the mild right hydronephrosis. 2. Normal left kidney. 3. Of note, the bilateral ureteral jets are identified. Electronically signed by: Isai Odom M.D. 02/28/2017 8:14 AM Dictated Date/Time: 02/28/2017 8:12 AM Laboratory Results 02/28/17 07:20 Red Blood Count 4.14, Mean Corpuscular Volume 88.2, Mean Corpuscular Hemoglobin 29.7, Mean Corpuscular Hemoglobin Concent 33.7, Mean Platelet Volume 11.8, Neutrophils (%) (Auto) 81.7, Lymphocytes (%) (Auto) 9.7, Monocytes (%) (Auto) 7.9, Eosinophils (%) (Auto) 0.3, Basophils (%) (Auto) 0.2, Neutrophils # (Auto) 8.64, Lymphocytes # (Auto) 1.03, Monocytes # (Auto) 0.83, Eosinophils # (Auto) 0.03, Basophils # (Auto) 0.02 02/28/17 07:20 Test 02/28/17 06:55 02/28/17 07:20 Urine Color DK YELLOW Urine Appearance TURBID (CLEAR) Urine pH 6.0 (4.5-7.5) Urine Specific [place] 1.017 (1.000-1.030) Urine Protein 2+ (NEG) Urine Glucose (UA) NEG (NEG) Urine Ketones 3+ (NEG) Urine Occult Blood 2+ (NEG) Urine Nitrite POS (NEG) Urine Bilirubin NEG (NEG) Urine Urobilinogen NEG (NEG) Urine Leukocyte Esterase LARGE (NEG) Urine WBC (Auto) >30 /hpf (0-5) Urine RBC (Auto) 5-10 /hpf (0-4) Urine Hyaline Casts (Auto) 1-5 /lpf (0-5) Urine Epithelial Cells (Auto) 10-20 /lpf (0-5) Urine Bacteria (Auto) 4+ (NEG) Urine Yeast (Auto) (NONE PRSENT) White Blood Count 10.57 K/uL (4.8-10.8) Red Blood Count 4.14 M/uL (4.2-5.4) Hemoglobin 12.3 g/dL (12.0-16.0) Hematocrit 36.5 % (37-47) Mean Corpuscular Volume 88.2 fL (80-100) Mean Corpuscular Hemoglobin 29.7 pg (25-34) Mean Corpuscular Hemoglobin Concent 33.7 g/dl (32-36) Platelet Count 212 K/uL (130-400) Mean Platelet Volume 11.8 fL (7.4-10.4) Neutrophils (%) (Auto) 81.7 % Lymphocytes (%) (Auto) 9.7 % Monocytes (%) (Auto) 7.9 % Eosinophils (%) (Auto) 0.3 % Basophils (%) (Auto) 0.2 % Neutrophils # (Auto) 8.64 K/uL (1.4-6.5) Lymphocytes # (Auto) 1.03 K/uL (1.2-3.4) Monocytes # (Auto) 0.83 K/uL (0.11-0.59) Eosinophils # (Auto) 0.03 K/uL (0-0.5) Basophils # (Auto) 0.02 K/uL (0-0.2) RDW Standard Deviation 48.8 fL (36.4-46.3) RDW Coefficient of Variation 15.1 % (11.5-14.5) Immature Granulocyte % (Auto) 0.2 % Immature Granulocyte # (Auto) 0.02 K/uL (0.00-0.02) Anion Gap 9.0 mmol/L (3-11) Est Creatinine Clear Calc Drug Dose 205.0 ml/min Estimated GFR () 144.2 Estimated GFR (Non- 124.4 BUN/Creatinine Ratio 7.4 (10-20) Calcium Level 8.9 mg/dl (8.5-10.1) Total Bilirubin 0.3 mg/dl (0.2-1) Aspartate Amino Transf (AST/SGOT) 17 U/L (15-37) Alanine Aminotransferase (ALT/SGPT) 24 U/L (12-78) Alkaline Phosphatase 82 U/L (45-117) Total Protein 6.9 gm/dl (6.4-8.2) Albumin 2.6 gm/dl (3.4-5.0) Globulin 4.3 gm/dl (2.5-4.0) Albumin/Globulin Ratio 0.6 (0.9-2) Lipase 65 U/L (73-393) Laboratory results reviewed by me. Medications Administered Medications (Trade) Dose Ordered Sig/Yasmine Route Start Time Stop Time Status Last Admin Dose Admin Sodium Chloride 500 ml @ 999 mls/hr Q31M STAT IV 02/28/17 06:51 02/28/17 07:21 DC 02/28/17 07:27 999 MLS/HR Ondansetron HCl (Zofran Inj) 4 mg NOW STAT IV 02/28/17 06:55 02/28/17 06:57 DC 02/28/17 07:25 4 MG Ceftriaxone Sodium (Rocephin Inj) 1 gm NOW STAT IV 02/28/17 06:59 02/28/17 07:01 DC 02/28/17 08:15 1 GM Hydromorphone HCl (Dilaudid Inj) 0.5 mg STK-MED ONCE .ROUTE 02/28/17 07:19 02/28/17 07:20 DC 02/28/17 07:26 0.5 MG ED Course 0650: The patient was evaluated in room A12B. A complete history and physical exam was performed. 0651: Ordered Sodium Chloride 500 ml @ 999 mls/hr IV. 0655: Ordered Sodium Chloride 1,000 ml @ 200 mls/hr IV, Zofran Inj 4 mg IV. 0659: Ordered Rocephin Inj 1 gm IV. 0700: Ordered Dilaudid Inj 0.5 mg IV. 0730: Reevaluated the patient. Discussed results and discharge instructions: She verbalized understanding and agreement. The patient is ready for discharge. Medical Decision The patient is a 32 year old female who presents to the ED with complaints of a fever. Differential diagnoses considered include pyelonephritis, renal colic, hydronephrosis, electrolyte imbalance, renal failure, dehydration, and viral illness. There is no leukocytosis or concerning anemia. No significant electrolyte abnormality, kidney failure or hepatitis. There is no pancreatitis. Urinalysis suggests infection. Urine culture and blood cultures are pending. Renal ultrasound does not show significant hydronephrosis. Bilateral ureteral jets were seen. The patient appears to have pyelonephritis. She did have a dirty urine about a week ago. She received IV saline, IV Zofran, IV Dilaudid. She was given IV ceftriaxone. Ceftriaxone should be good coverage based on the previous urine culture. The patient looks well, she would like to be discharged home. I think this is reasonable. She has agreed to return if not improving or if worsening or if vomiting. She'll be discharged on Omnicef, hydration and rest were encouraged. Medication Reconcilliation Current Medication List: was personally reviewed by me Blood Pressure Screening Patient's blood pressure: Elevated blood pressure Blood pressure disposition: Elevated BP felt to be situational Impression Primary Impression: Pyelonephritis Scribe Attestation The scribe's documentation has been prepared under my direction and personally reviewed by me in its entirety. I confirm that the note above accurately reflects all work, treatment, procedures, and medical decision making performed by me. Departure Information Dispostion Home / Self-Care Prescriptions Cefdinir (OMNICEF) 300 Mg Cap 300 MG PO Q12H for 10 Days, #20 CAP Prov: Feese, Ze J.,M.D. 02/28/17 Referrals Norm Raygoza D.O. (PCP) Forms HOME CARE DOCUMENTATION FORM, IMPORTANT VISIT INFORMATION Patient Instructions My [facility] Additional Instructions omnicef 2x per day for 10 days tylenol for pain and fever rest lots of fluids return for worsening symptoms, vomiting or if not starting to improve set up ob appt for followup
[2017-02-28 07:16] LABS: URINE APPEARANCE TURBID (CLEAR); URINE BILIRUBIN NEG (NEG); URINE COLOR DK YELLOW; URINE NITRITE POS (NEG); URINE SPECIFIC GRAVITY 1.017 (1.000-1.030); UROBILINOGEN NEG (NEG); ZZUR CULT IF INDIC CLEAN CATCH YES
[2017-02-28] MEDS ORDERED: HYDROmorphone INJ 0.5 MG/0.5 ML SYR ONE (07:19)
[2017-02-28 07:25] LABS: MANUAL MICROSCOPIC REQUIRED? NO; REVIEW REQ? YES
[2017-02-28 07:58] LABS: BASO % 0.2 %; BASO ABS # 0.02 K/uL (0-0.2); COMPLETE YES; EOS % 0.3 %; HEMATOCRIT 36.5 % (37-47); IG% 0.2 %; LYMPH % 9.7 %; LYMPH ABS # 1.03 K/uL (1.2-3.4); MEAN CELL VOLUME 88.2 fL (80-100); MEAN CORPUSCULAR HEMOGLOBIN 29.7 pg (25-34); MEAN CORPUSCULAR HGB CONC 33.7 g/dl (32-36); MEAN PLATELET VOLUME 11.8 fL (7.4-10.4); MONO % 7.9 %; NEUT % 81.7 %; PLATELET COUNT 212 K/uL (130-400); RED BLOOD COUNT 4.14 M/uL (4.2-5.4); WHITE BLOOD COUNT 10.57 K/uL (4.8-10.8)
--- NOTE | 2017-02-28 08:15 | DIAGNOSTIC IMAGING REPORT ---
RENAL ULTRASOUND HISTORY: Fever. FLANK PAIN COMPARISON: Renal ultrasound 02/11/2017. FINDINGS: Right kidney: 11.5 cm. No significant change in mild right hydronephrosis. Normal corticomedullary differentiation and cortical thickness. Left kidney: 12.3 cm. No hydronephrosis. Normal corticomedullary differentiation and cortical thickness. Bladder: No bladder wall thickening. The bilateral ureteral jets were identified. IMPRESSION: 1. No change in the mild right hydronephrosis. 2. Normal left kidney. 3. Of note, the bilateral ureteral jets are identified. Electronically signed by: Isai Odom M.D. 02/28/2017 8:14 AM Dictated Date/Time: 02/28/2017 8:12 AM
[2017-02-28 08:16] LABS: BUN/CREATININE RATIO 7.4 (10-20); CALCIUM 8.9 mg/dl (8.5-10.1); CREATININE 0.57 mg/dl (0.60-1.20); POTASSIUM 3.2 mmol/L (3.5-5.1)
[2017-02-28 08:18] LABS: ALB/GLOB RATIO 0.6 (0.9-2)
[2017-02-28] MEDS ORDERED: OXYC-609 PO (08:21)
[2017-02-28] MEDS ORDERED: CEFD300C2 PO (08:28)
[2017-02-28 09:43] VITALS: BP 142/68
== END 2017-02-28 09:43 | disposition home or self-care (01) ==
LOC: C.EDB 06:41 → C.EDA 09:43
DX: N12 Tubulo-interstitial nephritis, not specified as acute or chronic (principal); E28.2 Polycystic ovarian syndrome; Z87.440 Personal history of urinary (tract) infections; Z86.018 Personal history of other benign neoplasm; Z83.3 Family history of diabetes mellitus; Z82.49 Family history of ischemic heart disease and other diseases of the circulatory system; Z84.1 Family history of disorders of kidney and ureter

== ENCOUNTER → 2017-03-19 | Outpatient (CLI) | payer OTHER ==
[~2017-03-19] MED LIST changes: -ONDA4TAB46 PO; +OXYC-609 PO
--- NOTE | 2017-03-19 10:37 | DIAGNOSTIC IMAGING REPORT ---
(RENAL)RETROPERITON COMP CLINICAL HISTORY: 32 years-old Female presenting with KIDNEY STONE, history of right hydronephrosis. TECHNIQUE: Real-time grayscale and limited color Doppler ultrasound imaging of the kidneys and bladder was performed. COMPARISON: 02/28/[address] from 12/31/2016. FINDINGS: Image quality is limited by patient body habitus decreasing diagnostic sensitivity the exam. Right kidney: Normal echogenicity. Right kidney measures 12.3 cm. No hydronephrosis. No convincing evidence of calculus or mass. Normal perfusion. Left kidney: Normal echogenicity. Left kidney measures 12.5 cm. No hydronephrosis. No convincing evidence of calculus or mass. Normal perfusion. Bladder: No bladder wall thickening. Bilateral ureteral jets present. Other: None. IMPRESSION: 1. Interval resolution of right hydronephrosis. No obstruction. Electronically signed by: Kaleb Slater M.D. 03/19/2017 10:36 AM Dictated Date/Time: 03/19/2017 10:34 AM
== END | disposition home or self-care (01) ==
LOC: C.ULTR 09:51
PROVIDERS: ATTEND Urology
DX: N20.0 Calculus of kidney (principal)

== ENCOUNTER → 2017-06-26 | Outpatient (CLI) | payer OTHER ==
[2017-06-26 12:12] LABS: HEMATOCRIT 34.1 % (37-47); HEMOGLOBIN 10.8 g/dL (12.0-16.0)
== END | disposition home or self-care (01) ==
LOC: C.LAB1850 10:13
PROVIDERS: ATTEND Obstetrics & Gynecology
DX: O09.293 Supervision of pregnancy with other poor reproductive or obstetric history, third trimester (principal)

== ENCOUNTER 2017-07-11 10:49 | Emergency (ER) | payer OTHER ==
[2017-07-11 10:53] VITALS: TEMP 37.4
[2017-07-11] MEDS ORDERED: SODIUM CHLORIDE 0.9% 1000ML 1,000 ML IV STA ×2 (11:05→11:22)
[2017-07-11] MEDS ORDERED: ONDANSETRON INJ 2 MG/ML 2 ML VIAL IV STA (11:22)
--- NOTE | 2017-07-11 11:23 | EMERGENCY ROOM VISIT NOTE ---
History Report prepared by Raina: Diana Padgett Under the Supervision of: Dr. Jeremías Altman D.O. First contact with patient: 11:03 Chief Complaint: VOMITING Stated Complaint: N/V/D, 31WEKS PREG, OB SENT History of Present Illness The patient is a 32 year old female who presents to the Emergency Room with complaints of constant nausea, vomiting, and diarrhea beginning last night. The patient reports the diarrhea has since resolved. The patient is 31 weeks . This is the patient's 3rd . The patient had miscarriage for her first and her second child is six years old. She denies having any nausea or vomiting with her so far. She reports epigastric pain and swelling in legs. The patient states she has had heartburn with her which she has takes Zantac for. She denies any difficulty urinating, vaginal bleeding, chest pain, pelvic cramping, cough, or fever. The patient has gestational diabetes. Source of History: patient Onset: last night Position: other (generalized) Quality: other (nausea and vomiting) Timing: constant Associated Symptoms: + nausea, + vomiting, + diarrhea, No fevers, No cough, No urinary symptoms Review of Systems See HPI for pertinent positives & negatives. A total of 10 systems reviewed and were otherwise negative. Past Medical & Surgical Medical Problems: (1) PCOS (polycystic ovarian syndrome) (2) Pituitary adenoma (3) UTI (urinary tract infection) Family History Diabetes mellitus Heart disease Hypertension Kidney disease Kidney stones Social History Smoking Status: Never Smoker Drug Use: none Marital Status: in relationship Housing Status: lives with family Occupation Status: employed Current/Historical Medications Scheduled Aspirin (Aspirin Chewable), 81 MG PO HS Insulin Human Lispro (Humalog Kwikpen), 15-20 SQ TIDM Insulin Isophane (Human) (Humulin N Kwikpen), 35 SQ HS Multivit/Min/Iron/Fol Ac/Pren ( Vitamin), 1 TAB PO HS Ondasetron Odt (Zofran Odt), 4 MG SL Q6H Ranitidine Hcl (Zantac), 150 MG PO HS Allergies Coded Allergies: Meperidine (Verified Allergy, Severe, tongue swelling, 07/11/17) Adhesives (Verified Allergy, Mild, PEELED SKIN OFF WITH PLASTIC TAPE, 07/11) Morphine (Verified Allergy, Unknown, "CRUSHING CHEST PAIN", THROAT SWELLING, 07/11/17) [place] Nut (Verified Allergy, Unknown, TONGUE SWELLING, 07/11/17) Physical Exam Vital Signs Date Time Temp Pulse Resp B/P (MAP) Pulse Ox O2 Delivery O2 Flow Rate FiO2 07/11/17 15:54 115 18 123/61 99 07/11/17 15:00 115 18 123/61 99 Room Air 07/11/17 12:43 110 20 151/76 97 Room Air 07/11/17 10:53 37.4 134 20 126/81 98 Room Air Physical Exam GENERAL: Patient is awake, alert, and in no acute distress. Patient is very uncomfortable appearing. EYES: The conjunctivae are clear. The pupils are round and reactive. EARS, NOSE, MOUTH AND THROAT: The nose is without any evidence of any deformity. Mucous membranes are dry tongue is midline NECK: The neck is nontender and supple. RESPIRATORY: Normal respiratory effort is noted there is no evidence of wheezing rhonchi or rales CARDIOVASCULAR: Tachycardic and regular rate, no definite murmurs appreciated. GASTROINTESTINAL: Gravid in appearance fundal height well above umbilicus. Epigastric tenderness to palpation, no guarding or rigidity. MUSCULOSKELETAL/EXTREMITIES: There is no evidence of gross deformity full range of motion is noted in the hips and shoulders SKIN: Pedal edema bilaterally. There is no obvious evidence of any rash. There are no petechiae, pallor or cyanosis noted. NEUROLOGIC: Patient is awake alert and oriented x3 Medical Decision & Procedures ER Provider Diagnostic Interpretation: Radiology results as stated below per my review and radiologist interpretation: ABDOMEN COMPLETE (US) FINDINGS: Pancreas: The pancreas demonstrates a normal echotexture. Liver: Unremarkable. Gallbladder: No gallbladder wall thickening. No gallstones. CBD: 5 mm Kidneys: No hydronephrosis. Spleen: Normal with a maximum dimension 12 cm Aorta: Normal in caliber. IVC: Patent. IMPRESSION: No significant abnormality identified within the within the abdomen. The above report was generated using voice recognition software. It may contain grammatical, syntax or spelling errors. Electronically signed by: Gavino Cronin M.D. Laboratory Results 07/11/17 11:20 Red Blood Count 3.91, Mean Corpuscular Volume 89.5, Mean Corpuscular Hemoglobin 29.4, Mean Corpuscular Hemoglobin Concent 32.9, Mean Platelet Volume 11.5, Neutrophils (%) (Auto) 91.1, Lymphocytes (%) (Auto) 4.9, Monocytes (%) (Auto) 3.6, Eosinophils (%) (Auto) 0.1, Basophils (%) (Auto) 0.1, Neutrophils # (Auto) 9.09, Lymphocytes # (Auto) 0.49, Monocytes # (Auto) 0.36, Eosinophils # (Auto) 0.01, Basophils # (Auto) 0.01 07/11/17 11:20 Test 07/11/17 11:20 07/11/17 11:42 White Blood Count 9.98 K/uL (4.8-10.8) Red Blood Count 3.91 M/uL (4.2-5.4) Hemoglobin 11.5 g/dL (12.0-16.0) Hematocrit 35.0 % (37-47) Mean Corpuscular Volume 89.5 fL (80-100) Mean Corpuscular Hemoglobin 29.4 pg (25-34) Mean Corpuscular Hemoglobin Concent 32.9 g/dl (32-36) Platelet Count 234 K/uL (130-400) Mean Platelet Volume 11.5 fL (7.4-10.4) Neutrophils (%) (Auto) 91.1 % Lymphocytes (%) (Auto) 4.9 % Monocytes (%) (Auto) 3.6 % Eosinophils (%) (Auto) 0.1 % Basophils (%) (Auto) 0.1 % Neutrophils # (Auto) 9.09 K/uL (1.4-6.5) Lymphocytes # (Auto) 0.49 K/uL (1.2-3.4) Monocytes # (Auto) 0.36 K/uL (0.11-0.59) Eosinophils # (Auto) 0.01 K/uL (0-0.5) Basophils # (Auto) 0.01 K/uL (0-0.2) RDW Standard Deviation 50.3 fL (36.4-46.3) RDW Coefficient of Variation 15.5 % (11.5-14.5) Immature Granulocyte % (Auto) 0.2 % Immature Granulocyte # (Auto) 0.02 K/uL (0.00-0.02) Anion Gap 9.0 mmol/L (3-11) Estimated GFR () 143.4 Estimated GFR (Non- 123.7 BUN/Creatinine Ratio 10.7 (10-20) Calcium Level 8.5 mg/dl (8.5-10.1) Magnesium Level 1.8 mg/dl (1.8-2.4) Total Bilirubin 0.4 mg/dl (0.2-1) Direct Bilirubin < 0.1 mg/dl (0-0.2) Aspartate Amino Transf (AST/SGOT) 12 U/L (15-37) Alanine Aminotransferase (ALT/SGPT) 12 U/L (12-78) Alkaline Phosphatase 100 U/L (45-117) Total Protein 6.8 gm/dl (6.4-8.2) Albumin 2.5 gm/dl (3.4-5.0) Lipase 80 U/L (73-393) Beta-Hydroxybutyric Acid 6.72 mg/dL (0.2-2.81) Urine Color DK YELLOW Urine Appearance CLEAR (CLEAR) Urine pH 7.5 (4.5-7.5) Urine Specific [place] 1.025 (1.000-1.030) Urine Protein 1+ (NEG) Urine Glucose (UA) NEG (NEG) Urine Ketones 4+ (NEG) Urine Occult Blood NEG (NEG) Urine Nitrite NEG (NEG) Urine Bilirubin NEG (NEG) Urine Urobilinogen NEG (NEG) Urine Leukocyte Esterase TRACE (NEG) Urine WBC (Auto) 1-5 /hpf (0-5) Urine RBC (Auto) 0-4 /hpf (0-4) Urine Hyaline Casts (Auto) 1-5 /lpf (0-5) Urine Epithelial Cells (Auto) >30 /lpf (0-5) Urine Bacteria (Auto) NEG (NEG) Urine Renal Epithelial Cells 0-5 /lpf (0-5) Urine Mucus PRESENT (NONE PRSENT) Laboratory results per my review. Medications Administered Medications (Trade) Dose Ordered Sig/Yasmine Route Start Time Stop Time Status Last Admin Dose Admin Sodium Chloride 1,000 ml @ 999 mls/hr Q1H1M STAT IV 07/11/17 11:05 07/11/17 12:05 DC 07/11/17 11:19 999 MLS/HR Sodium Chloride 1,000 ml @ 999 mls/hr Q1H1M STAT IV 07/11/17 11:22 07/11/17 12:22 DC 07/11/17 11:28 999 MLS/HR Ondansetron HCl (Zofran Inj) 4 mg NOW STAT IV 07/11/17 11:22 07/11/17 11:24 DC 07/11/17 11:28 4 MG ED Course 1105: Ordered NSS 1,000 ml @ 999 mls/hr IV 1112: The patient was evaluated in room C2B. A complete history and physical examination were performed. 1122: Ordered Zofran Inj 4 mg IV, NSS 1,000 ml @ 999 mls/hr IV 1515: I discussed the patient's [facility] . Recognizing patient's history, he recommends close follow up and to come to ED if her symptoms worsen. 1533: I updated the patient on her test results. 1546: Upon reevaluation, the patient is resting comfortably. I discussed the results and treatment plan with the patient. She verbalized agreement of the treatment plan. The patient was discharged home. Medical Decision Differential diagnosis: Etiologies such as gastroenteritis, food borne illness, infections, appendicitis , diverticulitis, inflammatory bowel disease, obstruction, GI bleed, biliary pathology, as well as others were entertained. Nursing notes reviewed. The patient is a 32-year-old female who presented to the emergency department for nausea vomiting. The patient is currently in her third trimester . She did not have hyperemesis rather I feel she developed the symptoms over the last few days related to a gastroenteritis. She started having nausea vomiting and also diarrhea but has not had a diarrhea bowel movement since last evening. Her abdominal exam was not consistent with an acute surgical abdomen but she does have a gravid abdomen as well as epigastric tenderness to palpation. She does feel some movement. She has no vaginal bleeding. The patient was treated with IV fluids and antiemetics. On subsequent reevaluation she was feeling much better. I discussed the patient's laboratory radiographic studies with her as well as her primary [employer] group. The patient did have an elevated blood pressure in the emergency department but this was rechecked multiple times and appeared to improve. She was found have some protein in her urine does complain of some edema. She does have a history of preeclampsia but at this time I think her proteinuria may be secondary to her concentrated urine because of her dehydration. The patient is very educated in her condition and knows to follow-up with her primary [employer] physician for any related complaint however she was encouraged to continue all medications as prescribed drink plenty of liquids and return to the emergency department immediately if symptoms change worsen or the need arises. Medication Reconcilliation Current Medication List: was personally reviewed by me Blood Pressure Screening Patient's blood pressure: Normal blood pressure Consults Time Called: 1507 Consulting Physician: Dr. Parnell OBSAMMI Returned Call: [phone] I discussed the patient's case with Dr. Parnell OBSAMMI . Recognizing patient's history, he recommends close follow up and to come to ED if her symptoms worsen. Impression Primary Impression: Nausea Additional Impressions: Vomiting Dehydration Scribe Attestation The scribe's documentation has been prepared under my direction and personally reviewed by me in its entirety. I confirm that the note above accurately reflects all work, treatment, procedures, and medical decision making performed by me. Departure Information Dispostion Home / Self-Care Prescriptions Ondasetron Odt (ZOFRAN ODT) 4 Mg Tab 4 MG SL Q6H for Nausea, #20 TAB Prov: AgapitoJeremías, DO 07/11/17 Referrals No Doctor, Assigned (PCP) Forms HOME CARE DOCUMENTATION FORM, IMPORTANT VISIT INFORMATION Patient Instructions ED Nausea Vomiting, My [facility] Additional Instructions Follow-up with your [employer] physician as scheduled. Drink plenty clear liquids. Continue all other medications as prescribed. Return to the emergency department immediately if symptoms change worsen the need arises. Problem Qualifiers Additional Impressions: Vomiting Vomiting type: unspecified Vomiting Intractability: non-intractable Nausea presence: with nausea Qualified Codes: R11.2 - Nausea with vomiting, unspecified
[2017-07-11 11:37] LABS: BASO % 0.1 %; BASO ABS # 0.01 K/uL (0-0.2); EOS % 0.1 %; EOS ABS # 0.01 K/uL (0-0.5); HEMOGLOBIN 11.5 g/dL (12.0-16.0); IG# 0.02 K/uL (0.00-0.02); LYMPH % 4.9 %; LYMPH ABS # 0.49 K/uL (1.2-3.4); MEAN CELL VOLUME 89.5 fL (80-100); MEAN CORPUSCULAR HEMOGLOBIN 29.4 pg (25-34); MEAN CORPUSCULAR HGB CONC 32.9 g/dl (32-36); MEAN PLATELET VOLUME 11.5 fL (7.4-10.4); MONO % 3.6 %; MONO ABS # 0.36 K/uL (0.11-0.59); NEUT % 91.1 %; NEUT ABS # 9.09 K/uL (1.4-6.5); PLATELET COUNT 234 K/uL (130-400); RED CELL DISTRIBUTION WIDTH CV 15.5 % (11.5-14.5); RED CELL DISTRIBUTION WIDTH SD 50.3 fL (36.4-46.3); WHITE BLOOD COUNT 9.98 K/uL (4.8-10.8)
[2017-07-11 11:55] LABS: ALBUMIN 2.5 gm/dl (3.4-5.0); ALT/SGPT 12 U/L (12-78); AST/SGOT 12 U/L (15-37); BLOOD UREA NITROGEN 6 mg/dl (7-18); CALCIUM 8.5 mg/dl (8.5-10.1); CARBON DIOXIDE 22 mmol/L (21-32); CREATININE 0.58 mg/dl (0.60-1.20); GLUCOSE 96 mg/dl (70-99); LIPASE 80 U/L (73-393); POTASSIUM 3.9 mmol/L (3.5-5.1); SODIUM 137 mmol/L (136-145)
[2017-07-11 11:57] LABS: ALKALINE PHOSPHATASE 100 U/L (45-117); TOTAL PROTEIN 6.8 gm/dl (6.4-8.2)
--- NOTE | 2017-07-11 12:20 | DIAGNOSTIC IMAGING REPORT ---
ABDOMEN COMPLETE (US) HISTORY: Nausea VOMITING. COMPARISON: 03/19/2017 FINDINGS: Pancreas: The pancreas demonstrates a normal echotexture. Liver: Unremarkable. Gallbladder: No gallbladder wall thickening. No gallstones. CBD: 5 mm Kidneys: No hydronephrosis. Spleen: Normal with a maximum dimension 12 cm Aorta: Normal in caliber. IVC: Patent. IMPRESSION: No significant abnormality identified within the within the abdomen. The above report was generated using voice recognition software. It may contain grammatical, syntax or spelling errors. Electronically signed by: Gavino Cronin M.D. 07/11/2017 12:19 PM Dictated Date/Time: 07/11/2017 12:16 PM
[2017-07-11] MEDS ORDERED: RANI150T3 PO (13:10)
[2017-07-11] MEDS ORDERED: HMLIS SQ (13:10)
[2017-07-11] MEDS ORDERED: INSU1INJ23 SQ (13:10)
[2017-07-11] MEDS ORDERED: ASPCH81X PO (13:10)
[2017-07-11] MEDS ORDERED: ONDA4TAB10 SL (15:28)
[2017-07-11 15:54] VITALS: BP 123/61; PULSE 115; O2SAT 99
== END 2017-07-11 15:54 | disposition home or self-care (01) ==
LOC: C.EDB 10:50 → C.EDC 15:54
DX: R11.2 Nausea with vomiting, unspecified (principal); E86.0 Dehydration; E28.2 Polycystic ovarian syndrome; Z83.3 Family history of diabetes mellitus; Z82.49 Family history of ischemic heart disease and other diseases of the circulatory system; Z79.82 Long term (current) use of aspirin; Z79.4 Long term (current) use of insulin

== ENCOUNTER 2017-07-26 12:37 | Outpatient (CLI) | payer OTHER ==
[~2017-07-26] VITALS: Ht 167.6 cm; Wt 141.5 kg
[~2017-07-26 12:37] MED LIST changes: +ASPCH81X PO; +HMLIS SQ; +INSU1INJ23 SQ; +ONDA4TAB10 SL; -OXYC-609 PO; +RANI150T3 PO
[2017-07-26 13:57] VITALS: Ht 167.6 cm; Wt 141.5 kg
== END 2017-07-26 14:00 | disposition home or self-care (01) ==
LOC: C.OPB 12:37 → C.LD 12:38 → C.OPB 14:00
PROVIDERS: ATTEND Obstetrics & Gynecology
DX: O24.414 Gestational diabetes mellitus in pregnancy, insulin controlled (principal); O99.210 Obesity complicating pregnancy, unspecified trimester; Z3A.00 Weeks of gestation of pregnancy not specified

== ENCOUNTER 2017-08-02 15:10 | Outpatient (CLI) | payer OTHER ==
[~2017-08-02 15:10] MED LIST changes: -ONDA4TAB10 SL
== END 2017-08-02 16:08 | disposition home or self-care (01) ==
LOC: C.LD 15:10 → C.OPB 15:10
PROVIDERS: ATTEND Obstetrics & Gynecology
DX: O24.419 Gestational diabetes mellitus in pregnancy, unspecified control (principal); Z3A.00 Weeks of gestation of pregnancy not specified

== ENCOUNTER 2017-08-09 12:16 | Outpatient (CLI) | payer OTHER ==
[2017-08-09] MEDS ORDERED: INSHNI SC (12:55)
[2017-08-09] MEDS ORDERED: INSU100I2 SC ×3 (12:55)
[2017-08-09] MEDS ORDERED: MULT1CHW PO (12:59)
--- NOTE | 2017-08-09 14:53 | DIAGNOSTIC IMAGING REPORT ---
BIO PROF W/O NST-SINGLE CLINICAL HISTORY: GDM on insulin at 34 weeks. Pain TECHNIQUE: Ultrasound COMPARISON STUDY: None FINDINGS: The biophysical profile is 8 out of a possible 8. HISTORY: Of gestational age is 34 weeks 2 days. Cardiac activity is confirmed. heart rate is 1 27 bpm. Placenta is right lateral. Amniotic fluid index is 11.9 cm. Fetus is cephalic in presentation. IMPRESSION: biophysical profiles 8 out of a possible 8. Amniotic fluid index is 11.9 cm. cardiac activity is confirmed The above report was generated using voice recognition software. It may contain grammatical, syntax or spelling errors. Electronically signed by: Gavino Cronin M.D. 08/09/2017 2:52 PM Dictated Date/Time: 08/09/2017 2:48 PM
== END 2017-08-09 15:55 | disposition home or self-care (01) ==
LOC: C.OPB 12:16 → C.LD 12:18 → C.OPB 15:55
PROVIDERS: ATTEND Obstetrics & Gynecology
DX: O24.414 Gestational diabetes mellitus in pregnancy, insulin controlled (principal); Z3A.34 34 weeks gestation of pregnancy

== ENCOUNTER → 2017-08-11 | Outpatient (CLI) | payer OTHER ==
[~2017-08-11] MED LIST changes: +FRRS300 PO; -HMLIS SQ; +INSHNI SC; +INSU100I2 SC; -INSU1INJ23 SQ; +MTR600X PO; +MULT1CHW PO; +OXYC-57 PO; -PRENTAB26 PO
[2017-08-11 10:15] LABS: BASO % 0.2 %; BASO ABS # 0.02 K/uL (0-0.2); EOS % 0.4 %; EOS ABS # 0.05 K/uL (0-0.5); HEMATOCRIT 33.5 % (37-47); HEMOGLOBIN 10.7 g/dL (12.0-16.0); IG# 0.04 K/uL (0.00-0.02); LYMPH % 17.8 %; LYMPH ABS # 2.02 K/uL (1.2-3.4); MEAN CELL VOLUME 87.5 fL (80-100); MEAN CORPUSCULAR HEMOGLOBIN 27.9 pg (25-34); MEAN CORPUSCULAR HGB CONC 31.9 g/dl (32-36); MEAN PLATELET VOLUME 11.1 fL (7.4-10.4); MONO % 4.6 %; MONO ABS # 0.52 K/uL (0.11-0.59); NEUT % 76.6 %; NEUT ABS # 8.67 K/uL (1.4-6.5); PLATELET COUNT 261 K/uL (130-400); RED CELL DISTRIBUTION WIDTH SD 51.2 fL (36.4-46.3); WHITE BLOOD COUNT 11.32 K/uL (4.8-10.8)
[2017-08-11 10:40] LABS: ALBUMIN 2.4 gm/dl (3.4-5.0); ALT/SGPT 14 U/L (12-78); AST/SGOT 11 U/L (15-37); BLOOD UREA NITROGEN 5 mg/dl (7-18); CALCIUM 8.5 mg/dl (8.5-10.1); CARBON DIOXIDE 23 mmol/L (21-32); CREATININE 0.59 mg/dl (0.60-1.20); GLUCOSE 126 mg/dl (70-99); SODIUM 138 mmol/L (136-145)
[2017-08-11 10:43] LABS: ALKALINE PHOSPHATASE 107 U/L (45-117); TOTAL PROTEIN 6.6 gm/dl (6.4-8.2)
--- NOTE | 2017-08-30 10:32 | CODING QUERY NO DIAGNOSIS ---
TREATMENT RENDERED WITHOUT A DIAGNOSIS To promote full compliance with coding requirements relating to patient care, physician participation is requested in all cases of medical records coder uncertainty. Please assist us with providing a diagnosis/symptom for the test(s) below: A diagnosis/symptom was not documented on your Order. A valid diagnosis/symptom is required to bill all insurances. Please remember that we are unable to code a diagnosis of rule out, probable, possible, questionable, or suspected. Tests that require a diagnosis: DOS-08/11/17 * PROTEIN, 24 HR URINE DIAGNOSIS: * COMPLETE METABOLIC PROFILE DIAGNOSIS: * CBC W/O AUTOMATED DIFFERENTIAL DIAGNOSIS: Provider Signature: Date: Thank you Marj Oates [facility] Information Management Once completed, please kindly fax back to [phone] For questions please call [phone]
== END | disposition home or self-care (01) ==
LOC: C.LAB 09:00
PROVIDERS: ATTEND Obstetrics & Gynecology
DX: O13.9 Gestational [pregnancy-induced] hypertension without significant proteinuria, unspecified trimester (principal)

== ENCOUNTER 2017-08-16 15:47 | Outpatient (CLI) | payer OTHER ==
[~2017-08-16 15:47] MED LIST changes: -FRRS300 PO; -MTR600X PO; -OXYC-57 PO
--- NOTE | 2017-08-29 13:19 | EDITING REQUIRED CODING QUERY ---
DIAGNOSIS NEEDED To promote full compliance with coding requirements relating to patient care, physician participation is requested in all cases of mimeographer uncertainty. Please assist us with the question(s) below: Coding Question: The patient received care in labor and delivery on 08/16/17 as noted within the record. Please document the diagnosis that is being addressed by the medication/treatment. Provider Response: DIAGNOSIS: GDM on Insulin WEEKS GESTATION: 36 weeks Thank you for your assistance, Mouna Quesada - Environmental Health Nurse
== END 2017-08-16 16:40 | disposition home or self-care (01) ==
LOC: C.LD 15:47 → C.OPB 15:47
PROVIDERS: ATTEND Obstetrics & Gynecology
DX: O24.414 Gestational diabetes mellitus in pregnancy, insulin controlled (principal); Z3A.36 36 weeks gestation of pregnancy

== ENCOUNTER 2017-08-21 15:03 | Outpatient (CLI) | payer OTHER ==
[2017-08-21 16:54] LABS: BASO % 0.1 %; BASO ABS # 0.01 K/uL (0-0.2); EOS % 0.3 %; EOS ABS # 0.03 K/uL (0-0.5); HEMATOCRIT 34.4 % (37-47); IG# 0.04 K/uL (0.00-0.02); LYMPH % 17.4 %; LYMPH ABS # 1.92 K/uL (1.2-3.4); MEAN CELL VOLUME 86.9 fL (80-100); MEAN CORPUSCULAR HEMOGLOBIN 27.8 pg (25-34); MEAN PLATELET VOLUME 11.2 fL (7.4-10.4); MONO % 5.2 %; MONO ABS # 0.57 K/uL (0.11-0.59); NEUT % 76.6 %; NEUT ABS # 8.44 K/uL (1.4-6.5); PLATELET COUNT 242 K/uL (130-400); RED CELL DISTRIBUTION WIDTH CV 15.9 % (11.5-14.5); RED CELL DISTRIBUTION WIDTH SD 50.7 fL (36.4-46.3); WHITE BLOOD COUNT 11.01 K/uL (4.8-10.8)
[2017-08-21 17:20] LABS: ALBUMIN 2.3 gm/dl (3.4-5.0); ALT/SGPT 13 U/L (12-78); BLOOD UREA NITROGEN 5 mg/dl (7-18); CALCIUM 8.9 mg/dl (8.5-10.1); CARBON DIOXIDE 26 mmol/L (21-32); CREATININE 0.62 mg/dl (0.60-1.20); GLUCOSE 84 mg/dl (70-99); POTASSIUM 4.1 mmol/L (3.5-5.1); SODIUM 136 mmol/L (136-145)
[2017-08-21 17:22] LABS: ALKALINE PHOSPHATASE 119 U/L (45-117); AST/SGOT 11 U/L (15-37); TOTAL PROTEIN 6.8 gm/dl (6.4-8.2)
--- NOTE | 2017-08-29 13:24 | EDITING REQUIRED CODING QUERY ---
DIAGNOSIS NEEDED To promote full compliance with coding requirements relating to patient care, physician participation is requested in all cases of warehouse driver uncertainty. Please assist us with the question(s) below: Coding Question: The patient received care in labor and delivery on 08/21/17 as noted within the record. Please document the diagnosis that is being addressed by the medication/treatment. Provider Response: DIAGNOSIS: GDMA2 WEEKS GESTATION: 36w Thank you for your assistance, Mouna Quesada - Washery Engineer
== END 2017-08-21 17:50 | disposition home or self-care (01) ==
LOC: C.OPB 15:03 → C.LD 15:05 → C.OPB 17:50
PROVIDERS: ATTEND Obstetrics & Gynecology
DX: O24.419 Gestational diabetes mellitus in pregnancy, unspecified control (principal); Z3A.36 36 weeks gestation of pregnancy

== ENCOUNTER 2017-08-26 05:58 | Inpatient (IN) | payer OTHER ==
--- NOTE | 2017-08-23 17:49 | HISTORY & PHYSICAL EXAMINATION ---
DATE OF ADMISSION: 08/26/2017 ADMITTING DIAGNOSES: 1. Complicated at 37+ weeks gestational age. 2. Mild preeclampsia. 3. Insulin requiring gestational diabetes. 4. Desired permanent surgical sterilization. 5. Previous section. ADMISSION HISTORY: The patient is a 32-year-old 3, para 0-1-1-1 with an EDC of 14 September at 37+ weeks gestational age who is admitted for repeat section for term preeclampsia. The patient was diagnosed with preeclampsia this week with elevated blood pressures and a 24-hour urine greater than 300 mg. Because of the patient's gestational age and previous section, she has been admitted for the repeat section. The patient carries a diagnosis of gestational diabetes which has required insulin for control. Control has only been moderate at best with abdominal circumferences all greater than the 95th percentile. The patient's previous ended at 35 weeks gestational age with a primary section for preeclampsia. Because of the risks of preeclampsia with this , the patient had been on baby aspirin 81 mg daily until 36 weeks gestational age. Laboratory values for this show a blood type of O positive, antibody negative, rubella immune, hepatitis B negative. She had a negative cell free DNA screening and did not have a third trimester beta strep culture. PAST MEDICAL HISTORY: OBSTETRICAL: As above. STONER HAND: None. MEDICAL: History of kidney stones, migraine headaches, depression. SURGICAL: Tonsillectomy, wisdom teeth extraction, shoulder surgery. ALLERGIES: DEMEROL. SOCIAL HISTORY: No smoking. FAMILY HISTORY: Noncontributory. REVIEW OF SYSTEMS: As per HPI. PHYSICAL EXAMINATION: GENERAL: Shows a morbidly obese, gravid female in no acute distress. VITAL SIGNS: Blood pressure 138/86 and a weight of 314 pounds. HEENT EXAMINATION: Unremarkable. NECK: Supple. LUNGS: Clear. HEART: With regular rhythm and rate. ABDOMEN: Gravid, obese. Positive heart tones, estimated weight of 8 pounds. PELVIC: Showed the cervix to be long, thick and closed. EXTREMITIES: Shows +3 pitting edema. NEUROLOGIC: Shows DTRs are 2+ without clonus. INDICATION: A 32-year-old 3, para 0-1-1-1 at 36+ weeks gestational age for repeat section with bilateral tubal ligation. PLAN: The patient had been scheduled for repeat section at 39 weeks, but with the diagnosis of the preeclampsia that procedure has been moved up. The risks, benefits and alternatives to the surgery have been discussed. While the benefits will be delivery of the infant, the risks are bleeding, infection, inadvertent injury to bowel or bladder, as well as failure of the tubal ligation. The patient adamantly desires no further childbearing capacity. She understands that this is irreversible procedure. Permit for the surgery has been signed. VARINDER
[~2017-08-26] VITALS: Ht 170.2 cm; Wt 143.0 kg
[2017-08-26] VITALS (15 sets, daily range): BP systolic 121–144; BP diastolic 78–95; PULSE 86–96; TEMP 36.8–37.2; O2SAT 93–96; Ht 170.2 cm; Wt 143.0 kg
[~2017-08-26 05:58] MED LIST changes: +CEFAZOLIN 3000MG IV PUSH 22.5 ML IV SCH; +CEFAZOLIN IV 3,000 MG in SYRINGE 0 ML IV SCH
[2017-08-26 06:21] LABS: BASO % 0.1 %; BASO ABS # 0.01 K/uL (0-0.2); EOS % 0.4 %; EOS ABS # 0.04 K/uL (0-0.5); HEMATOCRIT 36.3 % (37-47); HEMOGLOBIN 11.1 g/dL (12.0-16.0); IG# 0.03 K/uL (0.00-0.02); LYMPH ABS # 1.87 K/uL (1.2-3.4); MEAN CELL VOLUME 87.7 fL (80-100); MEAN CORPUSCULAR HEMOGLOBIN 26.8 pg (25-34); MONO % 6.3 %; MONO ABS # 0.59 K/uL (0.11-0.59); NEUT % 72.9 %; NEUT ABS # 6.81 K/uL (1.4-6.5); PLATELET COUNT 244 K/uL (130-400); RED CELL DISTRIBUTION WIDTH SD 51.4 fL (36.4-46.3); WHITE BLOOD COUNT 9.35 K/uL (4.8-10.8)
[2017-08-26 06:26] LABS: MEAN CORPUSCULAR HGB CONC 30.6 g/dl (32-36)
[2017-08-26] MEDS: LACTATED RINGER'S 1000ML 1,000 ML IV SCH (06:31)
[2017-08-26 06:45] LABS: ALBUMIN 2.2 gm/dl (3.4-5.0); ALT/SGPT 11 U/L (12-78); CREATININE 0.69 mg/dl (0.60-1.20)
[2017-08-26 06:47] LABS: ALKALINE PHOSPHATASE 120 U/L (45-117); AST/SGOT 11 U/L (15-37); TOTAL PROTEIN 6.6 gm/dl (6.4-8.2)
[2017-08-26 06:51] LABS: INR 0.8 (0.9-1.1); PTT PATIENT 23.6 SECONDS (21.0-31.0)
[2017-08-26] MEDS ORDERED: ONDANSETRON INJ 2 MG/ML 2 ML VIAL ONE (07:27)
[2017-08-26] MEDS ORDERED: MoRPHine SULFATE PF 1 MG/ML 10 ML AMP/VIAL ONE (07:28)
[2017-08-26] MEDS ORDERED: FENTANYL CITRATE INJ 50 MCG/1 ML 2 ML VIAL ONE ×2 (07:28→10:10)
[2017-08-26] MEDS ORDERED: PHENYLEPHRINE 100MCG/ML 5ML SYR ONE (08:36)
[2017-08-26] MEDS ORDERED: MIDAZOLAM HCL 1 MG/ML 2ML VIAL ONE (08:42)
[2017-08-26] MEDS ORDERED: NEOSTIGMINE METHYLSULFATE 5 MG/5 ML SYR ONE (09:09)
[2017-08-26] MEDS ORDERED: CISATRACURIUM BESYLATE IV SOLN 2 MG/ML 10 ML VIAL ONE (09:09)
[2017-08-26] MEDS ORDERED: PROMETHAZINE HCL INJ 25 MG/ML 1 ML VIAL ONE (09:09)
[2017-08-26] MEDS ORDERED: PROPOFOL IV EMULSION 10 MG/ML 20 ML VIAL IV ONE (09:09)
[2017-08-26] MEDS ORDERED: GLYCOPYRROLATE INJ 0.2 MG/ML VIAL ONE (09:09)
[2017-08-26] MEDS ORDERED: SUCCINYLCHOLINE CHLORIDE 20 MG/ML 10 ML VIAL IV ONE (09:09)
[2017-08-26] MEDS ORDERED: HYDROmorphone INJ 2 MG/ML SYR/VIAL ONE (09:18)
[2017-08-26] MEDS ORDERED: DEXAMETHASONE SOD INJ 4 MG/ML VIAL ONE (09:18)
[2017-08-26] MEDS ORDERED: SUPERCREAM 0.870 % 15GM JAR EXT PRN (09:30)
[2017-08-26] MEDS ORDERED: HYDROCORTISONE ACETATE 25 MG SUPP PR PRN (09:30)
[2017-08-26] MEDS ORDERED: BENZOCAINE 20% AER SPR 82.5 GM CAN EXT PRN (09:30)
[2017-08-26] MEDS ORDERED: DIPHTHERIA/TETANUS/PERTUSSIS 0.5 ML SYR/VIAL IM. ONE (09:30)
[2017-08-26] MEDS ORDERED: LANOLIN OINT EXT PRN (09:30)
--- NOTE | 2017-08-26 09:44 | [facility] Operative Report ---
Operative Report Operative Date Aug 26, 2017. Pre-Operative Diagnosis 1. Complicated at 37.2 weeks gestation. 2. Mild preeclampsia. 3. Insulin requiring gestational diabetes. 4. Desired permanent surgical sterilization. 5. Previous section. Post-Operative Diagnosis 1. Same. 2. 4cm right ovarian cystectomy. Procedure(s) Performed 1. Repeat low transverse section 2. Bilateral tubal ligation 3) Right Ovarian Cystectomy Surgeon Dr. Sagastume Hand Spring Former Surgeon(s) Dr. Zimmer Estimated Blood Loss 800 Findings Viable female infant, Apgars 2/7; weight 8lbs 4 ozs, art/venous cord gsses pending, 4 cm right sided fluid-filled ovarian cyst, removed, bilateral tubal ligation Specimens 1. Placenta - exam 2. Cord blood 3. Portion of L and portion of R fallopian tube 4. Right ovarian cyst Drains Doty to gravity Anesthesia Type General Complication(s) none Disposition Recovery Room / PACU I attest to the content of the Intraoperative Record and any orders documented therein. Any exceptions are noted below.
--- NOTE | 2017-08-26 09:53 | OPERATIVE REPORT ---
DATE OF OPERATION: 08/26/2017 PREOPERATIVE DIAGNOSES: 1. Complicated at 37 weeks' gestational age. 2. Mild preeclampsia. 3. Insulin-dependent gestational diabetes. 4. Desired permanent surgical sterilization. POSTOPERATIVE DIAGNOSES: 1. Same. 2. Left ovarian cyst. PROCEDURES PERFORMED: 1. Repeat low cervical transverse section. 2. Bilateral tubal ligation. 3. Left ovarian cystectomy. SURGEON: Dr. Lloyd Sagastume. INDUSTRIAL REAL ESTATE AGENT: Shauna Zimmer MD and Dr. Bah. ANESTHESIA: 1. General endotracheal. 2. Failed spinal. FINDINGS: Viable female infant with Apgars of 2 at 1 minute and 7 at 5 minutes and a weight of 8 pounds 4 ounces. Arterial and venous cord gases are pending. Normal left tube and ovary. Adhesions of the distal right tube to a 5-cm right ovarian cyst. Right ovarian cystectomy with right fimbriectomy, left tubal ligation performed. PROCEDURE IN DETAIL: The patient was taken to the operating room and had an initial placement of spinal anesthesia. The patient was able to move and anesthesia replaced the spinal for a second time. After the second spinal, the patient was prepped and draped in the usual fashion. She was checked for adequate anesthesia, which was not present after the second spinal. At this point, a decision was made to move forward with general endotracheal intubation. Please see anesthesia notes for details of that procedure. Following placement of the general endotracheal intubation, a Pfannenstiel type incision through previous surgical scar was made. Underlying subcutaneous tissue was dissected down to the ventral abdominal fascia, which was nicked and opened in a horizontal manner. Preperitoneal fascia was dissected away until the peritoneal cavity was entered and opened in a vertical manner. The Guy self-retraining retractor was inserted into the incision and deployed. The peritoneum overlying the uterus was elevated, opened in a semi-lunar fashion, the inferior margin of which was taken down creating the bladder flap. The uterus was entered sharply and extended in a semilunar fashion manually with clear amniotic fluid. Using a suction vacuum, the vertex was delivered. Nuchal cord x1 was reduced. The remainder of the baby was delivered. Cord was clamped and cut and the baby was passed off to pediatrics, who was in attendance for the delivery. Cord gases and cord blood samples were obtained. The placenta was delivered spontaneously and sent for pathological evaluation. The uterine cavity was wiped clean of any residual blood tissue and/or clot. The uterine incision was then closed with 2 layers of 4-0 Vicryl, the first a running locking stitch and the second an imbricating stitch. Hemostasis achieved. Inspection of the adnexa bilaterally with description as above. A segment of the left fallopian tube was isolated followed to the fimbriated end, a segment of which was elevated, doubly ligated with 0 plain suture cut and removed from the field. Inspection of the right adnexa with description as above. Decisions were made to perform an initial ovarian cystectomy and a circumferential incision was made on the ovarian cortex and a 5-cm ovarian cyst was dissected out and sent for pathological evaluation. Hemostasis achieved in the ovarian bed and the edges of the cortex were reapproximated with a running 4-0 Vicryl suture. The distal end of the right fallopian tube was adhesed to the surface of the ovary, pulling the entire tube in towards the ovary itself. Adhesiolysis of the fimbriated end off of the surface of the ovary allowed a distal salpingectomy or fimbriectomy to be performed for sterilization. This was performed by placing a Sunni clamp across tube, cut, specimen removed from the field, and 4-0 Vicryl used to tie the clamp. Hemostasis was present. The pelvis was then thoroughly irrigated with 1000 mL of warm saline. The uterus was returned to the pelvic cavity. Pericolic gutters were cleared bilaterally of any blood tissue and/or clot. Both incision sites on the adnexa were inspected for hemostasis, which was present. There was hemostasis on the suture line. Sponge and needle count was correct. The rectus muscle was then plicated in the midline with a running 2-0 Vicryl stitch. The fascia was closed laterally to the midline from both sides with a running 0 Vicryl suture. The subcutaneous tissue was irrigated with warm saline and the skin incision was closed with a 4-0 Monocryl subcuticular suture. Sterile dressing was applied and the patient was taken to the recovery room in satisfactory condition. I attest to the content of the Intraoperative Record and any orders documented therein. Any exception s are noted below.
[2017-08-26] MEDS ORDERED: ACETAMINOPHEN 1000 MG/100 ML IV IV ONE (10:09)
[2017-08-26] MEDS ORDERED: HYDROmorphone INJ 1 MG/ML SYR IV PRN (10:15)
[2017-08-26] MEDS ORDERED: EpHEDrine SULFATE INJ 50 MG/ML AMP IV PRN ×2 (10:15→10:30)
[2017-08-26] MEDS ORDERED: ONDANSETRON INJ 2 MG/ML 2 ML VIAL IV PRN ×2 (10:15→10:30)
[2017-08-26] MEDS ORDERED: ATROPINE SULFATE 0.1 MG/ML 5ML SYR IV PRN (10:15)
[2017-08-26] MEDS ORDERED: FENTANYL CITRATE INJ 50 MCG/1 ML 2 ML VIAL IV PRN (10:15)
[2017-08-26] MEDS ORDERED: NALOXONE HCL INJ 1 MG in SODIUM CHLORIDE 0.9% 1000ML 1,000 ML IV PRN (10:18)
[2017-08-26] MEDS ORDERED: SODIUM CHLORIDE 0.9% 1000ML 1,000 ML IV PRN (10:18)
[2017-08-26] MEDS ORDERED: NALOXONE HCL INJ 0.08 MG in SYRINGE 1.8 ML IV PRN (10:18)
[2017-08-26] MEDS ORDERED: LACTATED RINGER'S 1000ML 500 ML IV PRN (10:18)
[2017-08-26] MEDS ORDERED: ACETAMINOPHEN IV 100 ML IV PRN (10:30)
[2017-08-26] MEDS ORDERED: NO NARCOTICS OR SEDATIVES SCH (10:30)
[2017-08-26] MEDS ORDERED: DiphenhydrAMINE HCL 50 MG/ML VIAL IV PRN (10:30)
[2017-08-26] MEDS ORDERED: PROMETHAZINE HCL INJ 25 MG in SODIUM CHLORIDE 0.9% 50ML 50 ML IV PRN (10:30)
[2017-08-26] MEDS ORDERED: NALOXONE HCL 0.4 MG/1 ML VIAL/CARP IV PRN ×2 (10:30→18:45)
[2017-08-26] MEDS ORDERED: KETOROLAC TROMETHAMINE 30 MG/ML VIAL IV PRN (10:30)
[2017-08-26] MEDS ORDERED: MoRPHine SULFATE PF 1 MG/ML 10 ML AMP/VIAL EPI PRN (10:30)
[2017-08-26] MEDS: OXYTOCIN INJ 20 UNITS in LACTATED RINGER'S 1000ML 1,000 ML IV SCH ×2 (12:06→18:06)
--- NOTE | 2017-08-26 13:36 | Anesthesiology Progress Note ---
Anesthesia Progress Note Date of Service Aug 26, 2017. Progress Notes This record serves as an addendum to the anesthesia record for Dennis Hutchins dated 08/26/17. After entering the operating room, Ms Hutchins sat on the edge of the OR table and her back was prepped in sterile fashion with duraprep. The site was draped and infiltrated with 2cc of 1% lidocaine. A 21 G introducer was inserted at L3 and a 4 inch sprotte was advanced slowly until return of CSF. Of note, the spinal needle had to be forcibly indented to reach the spinal space due to patient's body habitus. 1.6 cc of 0.75% bupivicaine + 20 mcg of Fentanyl + 0.2 mg of morphine were injected into the CSF with a positive "swirl" prior to injection and return of fluid on check after injection. The needle was removed and the patient was laid down with WILLY. After a few minutes the patient was still able to move her toes and had no detectable level. Due to complete absence of a level and the spinal needle being shorter than optimum , decision was made to sit the patient back up and reattempt placement. On second attempt, the patient was prepped and draped in sterile fashion and 2 ml of 1% lidocaine was infiltrated at L3. Introducer was placed and a 5 inch sprotte was slowly advanced to the space until return of CSF. CSF was allowed to drip a few times prior to reattempting spinal injection. On second attempt, patient was given 1.8 cc of 0.75% bupivicaine without duramorph. The patient was again laid down in WILLY. This time patient reported feeling warmth and tingling in her toes. After prepping and draping, patient reported left side feeling more numb than right, but still able to move toes. Patient with pain after surgical check. Decision made to convert to GA. Patient was preoxygenated appropriately and then induced with 200 mg of propofol and succinylcholine. I initially attempted an RSI with cricoid, but patient's jaw was rigid and patient weakly moving left arm. I was not able to open mouth enough for insertion of larygnoscope. Patient given another 100mg of propofol with improved relaxation, but significant secretions blocking full view of airway. Airway suctioned. Attempt made to place ETT, but patient began to desaturate. Larygnoscope removed and patient ventilated with oral airway. Patient easy to ventilate and oxygenation returned to normal. Attempted to place ETT with glidescope, but view obstructed by secretions and blood. Additional support called from other anesthesia personal. Returned to masking patient with adequate oxygenation. Dr. Lim and Dr. Enrique in to help. Attempt at glidescope by Dr. Lim, again with poor visualization due to oral secretions and blood in airway. Attempt by Dr. Enrique with MAC 3 blade had a grade 2 view partially obstructed by secretions, but able to pass a 7.5 ETT. (Please see below for minute by minute O2 sats and CO2 readings during airway management). ETT placement confirmed with positive EtCO2, b/l BS, and b/l chest rise. Incision made. Initial after of 2 and infant requiring resuscitation. Patient's uterus was boggy and given IM hemabate in addition to IV pitocin. Improved uterine tone. 5 minute improved to 7 and baby crying. See anesthesia record for remainder of intraoperative course. After surgery complete, patient was suctioned orally and via the ETT. Adequate tidal volumes and RR. Patient opening eyes to name. Extubated. Patient again with rigid jaw after extubation and requiring aggressive jaw thrust to prevent airway obstruction. Able to maintain appropraite oxygenation with airway supported (jaw thrust and oxygen mask) in operating room until patient's jaw relaxed and then the patient was able to maintain her own airway without assistance. To OR PACU on oxymask and report given without further complications. Record of O2 sats during intubation attempts 0822 - IV induction, SpO2 100% 0823 - SpO2 100% 0824 - SpO2 93% 0825 - SpO2 84%, being mask ventilated 0826 - Easy mask ventilation, SpO2 91%, etCO2 30 0827 - SpO2 93%, etCO2 39 0828 - SpO2 82% 0829 - SpO2 99%, etCO2 33 0830 - SpO2 91%, etCO2 35 0831 - SpO2 90%, etCO2 44 (successful intubation) 0832 - SpO2 99%, etCO2 47 Iza Palma MD, PhD Anesthesiology
--- NOTE | 2017-08-26 13:58 | Anesthesiology Progress Note ---
Anesthesia Post Op Note Date & Time Aug 26, 2017 at 13:55 Vital Signs Pain Intensity: 5.0 Vital Signs Past 12 Hours Date Time Temp Pulse Resp B/P (MAP) Pulse Ox O2 Delivery O2 Flow Rate FiO2 08/26/17 12:58 36.8 91 18 139/83 (101) 08/26/17 12:20 18 95 08/26/17 11:25 96 Room Air 08/26/17 11:25 18 96 08/26/17 11:25 36.8 88 18 144/95 (111) 96 Room Air 08/26/17 11:00 36.0 86 19 141/93 95 Room Air 08/26/17 10:50 84 19 125/102 96 Room Air 08/26/17 10:40 75 21 156/101 96 Room Air 08/26/17 10:30 84 22 150/92 100 Room Air 08/26/17 10:20 78 18 152/92 100 Oxymask 10 08/26/17 10:10 76 23 164/96 100 Oxymask 10 08/26/17 10:01 36.1 80 13 157/108 100 Oxymask 10 Notes Mental Status: alert / awake / arousable, participated in evaluation Pt Amnestic to Procedure: Yes Nausea / Vomiting: adequately controlled Pain: adequately controlled Airway Patency, RR, SpO2: stable & adequate BP & HR: stable & adequate Hydration State: stable & adequate Anesthetic Complications: no major complications apparent Anesthetic Complications: Baby resting comfortably with mother. Patient with laceration of the soft palate on the right hand side. Site without evidence of bleeding or oral swelling. No other apparent complications from unexpected GA with difficult intubation after failed spinal x 2. (see meditech and anesthesia record for full details of intraoperative events.)
[2017-08-26] MEDS: HYDROmorphone INJ 1 MG/ML SYR IV PRN ×3 (15:26→18:08)
[2017-08-26] MEDS ORDERED: HYDROmorphone INJ 1 MG/ML SYR IV STA (18:39)
[2017-08-26] MEDS ORDERED: SODIUM CHLORIDE 0.9% 1000ML 1,000 ML IV SCH (18:39)
[2017-08-26] MEDS: HYDROmorphone HCL 0.5MG/ML 50 ML CASSETTE IV PRN ×2 (19:39→23:22)
[2017-08-27] VITALS (11 sets, daily range): BP systolic 106–118; BP diastolic 67–76; PULSE 92–97; TEMP 36.7–37.4; O2SAT 93–96
[2017-08-27] MEDS ORDERED: INCREMENTAL PCA TITRATION SCH
[2017-08-27] MEDS: LACTATED RINGER'S 1000ML 1,000 ML IV SCH (02:47)
[2017-08-27] MEDS: HYDROmorphone HCL 0.5MG/ML 50 ML CASSETTE IV PRN (02:50)
[2017-08-27] MEDS ORDERED: CEFAZOLIN 3000MG IV PUSH 22.5 ML IV SCH (06:00)
[2017-08-27 06:31] LABS: HEMATOCRIT 26.6 % (37-47); HEMOGLOBIN 8.3 g/dL (12.0-16.0); MEAN CELL VOLUME 87.2 fL (80-100); MEAN CORPUSCULAR HEMOGLOBIN 27.2 pg (25-34); MEAN CORPUSCULAR HGB CONC 31.2 g/dl (32-36); MEAN PLATELET VOLUME 11.2 fL (7.4-10.4); PLATELET COUNT 215 K/uL (130-400); RED CELL DISTRIBUTION WIDTH CV 16.1 % (11.5-14.5); RED CELL DISTRIBUTION WIDTH SD 51.6 fL (36.4-46.3); WHITE BLOOD COUNT 11.12 K/uL (4.8-10.8)
[2017-08-27 06:54] LABS: BASO % 0.1 %; BASO ABS # 0.01 K/uL (0-0.2); EOS % 0.4 %; EOS ABS # 0.04 K/uL (0-0.5); IG# 0.04 K/uL (0.00-0.02); LYMPH ABS # 2.34 K/uL (1.2-3.4); MONO % 7.4 %; MONO ABS # 0.82 K/uL (0.11-0.59); NEUT % 70.7 %; NEUT ABS # 7.87 K/uL (1.4-6.5)
--- NOTE | 2017-08-27 06:58 | Progress Note ---
Subjective Aug 27, 2017. Subjective conversation w/ patient, conversation w/ family, physical exam Ambulation: limited ambulation Voiding: candelaria catheter in place Passing Gas: No Diet Tolerance: Clear Liquids, Regular Diet (advancing as tolerated today) Lochia: Small Feeding Type: Breast Feeding Pain: some jaw pain from intubation, pelvic pain well controled Comment: Pt seen and assessed at bedside; no acute events overnight Review of Systems Constitutional: No fever, No chills Respiratory: No cough, No shortness of breath Cardiac: No chest pain Abdomen: No nausea, No vomiting Female : No dysuria no headache or calf pain reported Objective Vital Signs Date Time Temp Pulse Resp B/P (MAP) Pulse Ox O2 Delivery O2 Flow Rate FiO2 08/27/17 06:15 18 94 08/27/17 05:15 18 93 08/27/17 05:05 36.8 92 16 116/74 (88) 93 Room Air 08/27/17 04:15 16 93 08/27/17 03:15 18 93 08/27/17 02:20 18 95 08/27/17 01:15 16 93 08/27/17 00:15 93 Room Air 08/27/17 00:15 18 93 08/27/17 00:15 37.4 97 18 107/70 (82) 93 Room Air 08/26/17 23:15 18 93 08/26/17 22:15 16 93 08/26/17 21:15 16 94 08/26/17 20:15 18 95 08/26/17 20:15 37.1 90 18 121/78 (92) 95 Room Air 08/26/17 19:15 20 94 08/26/17 18:15 20 94 08/26/17 17:15 18 95 08/26/17 16:15 16 94 08/26/17 16:15 37.0 96 16 128/81 (97) 94 Room Air 08/26/17 16:15 94 Room Air 08/26/17 15:15 18 95 08/26/17 14:20 20 95 08/26/17 13:55 37.2 86 18 141/80 (100) 94 Room Air 08/26/17 13:20 16 96 08/26/17 12:58 36.8 91 18 139/83 (101) 08/26/17 12:20 18 95 08/26/17 11:25 96 Room Air 08/26/17 11:25 18 96 08/26/17 11:25 36.8 88 18 144/95 (111) 96 Room Air 08/26/17 11:00 36.0 86 19 141/93 95 Room Air 08/26/17 10:50 84 19 125/102 96 Room Air 08/26/17 10:40 75 21 156/101 96 Room Air 08/26/17 10:30 84 22 150/92 100 Room Air 08/26/17 10:20 78 18 152/92 100 Oxymask 10 08/26/17 10:10 76 23 164/96 100 Oxymask 10 08/26/17 10:01 36.1 80 13 157/108 100 Oxymask 10 Physical Exam General Appearance: WELL-APPEARING, WD/WN, NO APPARENT DISTRESS Respiratory/Chest: chest non-tender, lungs clear, normal breath sounds Cardiovascular: regular rate, rhythm, no murmur Abdomen: normal bowel sounds, non tender, soft Fundus: Firm, Non-Tender, Relation to Umbilicus (*pt obese, 4 cm below) Incision Description: Clean, Dry & Intact Extremities: normal range of motion, non-tender, normal inspection, no calf tenderness, + pedal edema (1-2+bilat) Laboratory Results Last 24 Hours Test 08/26/17 07:13 08/26/17 10:35 08/27/17 05:57 Bedside Glucose 96 mg/dl 129 mg/dl White Blood Count 11.12 K/uL Red Blood Count 3.05 M/uL Hemoglobin 8.3 g/dL Hematocrit 26.6 % Mean Corpuscular Volume 87.2 fL Mean Corpuscular Hemoglobin 27.2 pg Mean Corpuscular Hemoglobin Concent 31.2 g/dl Platelet Count 215 K/uL Mean Platelet Volume 11.2 fL Neutrophils (%) (Auto) 70.7 % Lymphocytes (%) (Auto) 21.0 % Monocytes (%) (Auto) 7.4 % Eosinophils (%) (Auto) 0.4 % Basophils (%) (Auto) 0.1 % Neutrophils # (Auto) 7.87 K/uL Lymphocytes # (Auto) 2.34 K/uL Monocytes # (Auto) 0.82 K/uL Eosinophils # (Auto) 0.04 K/uL Basophils # (Auto) 0.01 K/uL RDW Standard Deviation 51.6 fL RDW Coefficient of Variation 16.1 % Immature Granulocyte % (Auto) 0.4 % Immature Granulocyte # (Auto) 0.04 K/uL Polychromasia 1+ Medications Current Inpatient Medications Medications (Trade) Dose Ordered Sig/Yasmine Route Start Time Stop Time Status Last Admin Dose Admin Lactated Ringer's 1,000 ml @ 125 mls/hr Q8H IV 08/26/17 06:00 09/25/17 05:59 08/27/17 02:47 125 MLS/HR Oxycodone/ Acetaminophen (Percocet 5-325mg Tab) 1 tab Q4H PRN PO 08/27/17 07:00 09/10/17 06:59 Oxycodone/ Acetaminophen (Percocet 5-325mg Tab) 2 tab Q4H PRN PO 08/27/17 07:00 09/10/17 06:59 Ibuprofen (Motrin Tab) 600 mg Q4H PRN PO 08/26/17 09:30 09/25/17 09:29 Ondansetron HCl (Zofran Inj) 4 mg Q4H PRN IV 08/27/17 07:00 09/26/17 06:59 Prenat Multivit/ Williams/Iron/Folic Ac ( Vitamin Tab) 1 tab DAILY PO 08/27/17 08:00 09/26/17 07:59 Magnesium Hydroxide (Milk Of Magnesia Susp) 30 ml HS PO 08/27/17 22:00 09/26/17 21:59 Ferrous Sulfate (Feosol Tab) 325 mg DAILY PO 08/27/17 08:00 09/26/17 07:59 Cocaine HCl (Supercream 0.870% Cr) BID PRN EXT 08/26/17 09:30 09/09/17 09:29 Lanolin (Lanolin Oint) PRN PRN EXT 08/26/17 09:30 09/25/17 09:29 Hydrocortisone Acetate (Anusol Hc Supp) 25 mg BID PRN AR 08/26/17 09:30 09/25/17 09:29 Benzocaine (Dermoplast Aero Spr) 1 appln PRN PRN EXT 08/26/17 09:30 09/25/17 09:29 Diphenhydramine HCl (Benadryl Cap) 25 mg QID PRN PO 08/27/17 07:00 09/26/17 06:59 Diphenhydramine HCl (Benadryl Inj) 25 mg QID PRN IV 08/27/17 07:00 09/26/17 06:59 Senna (Senokot Tab) 17.2 mg HS PO 08/27/17 22:00 09/26/17 21:59 Atropine Sulfate (Atropine Sulfate 0.1mg/ml Inj) 0.5 mg Q1M PRN IV 08/26/17 10:15 08/27/17 07:00 Acetaminophen 100 ml @ 400 mls/hr Q8H PRN IV 08/26/17 10:30 08/27/17 07:00 Ketorolac Tromethamine (Toradol Inj) 30 mg Q6H PRN IV 08/26/17 10:30 08/27/17 07:00 08/26/17 11:31 30 MG Naloxone HCl (Narcan Inj) 0.1 mg UD PRN IV 08/26/17 10:30 08/27/17 07:00 Diphenhydramine HCl (Benadryl Inj) 25 mg Q6H PRN IV 08/26/17 10:30 08/27/17 07:00 Naloxone HCl 1 mg/ Sodium Chloride 1,002.5 ml @ 50 mls/hr Q20H3M PRN IV 08/26/17 10:18 08/27/17 07:00 Ondansetron HCl (Zofran Inj) 4 mg Q6H PRN IV 08/26/17 10:30 08/27/17 07:00 Promethazine HCl 25 mg/Sodium Chloride 51 ml @ 200 mls/hr Q6H PRN IV 08/26/17 10:30 08/27/17 07:00 Miscellaneous Information (Dc Intraspinal Morphine) 1 ea TODAY@0700 ONCE N/A 08/27/17 07:00 08/27/17 07:01 Miscellaneous Information (No Narcotics Or Sedatives) 1 ea UD N/A 08/26/17 10:30 08/27/17 07:00 Naloxone HCl 0.08 mg/Syringe 2 ml @ 1 mls/min Q2M PRN IV 08/26/17 10:18 08/27/17 07:00 Lactated Ringer's 500 ml @ 999 mls/hr Q31M PRN IV 08/26/17 10:18 08/27/17 07:00 Ephedrine Sulfate (EpHEDrine SULFATE INJ) 10 mg Q5M PRN IV 08/26/17 10:30 08/27/17 07:00 Morphine Sulfate (Duramorph Pf Inj) TODAY PRN EPI 08/26/17 10:30 08/27/17 07:00 Sodium Chloride 1,000 ml @ 15 mls/hr Q24H PRN IV 08/26/17 10:18 08/27/17 07:00 Hydromorphone HCl (Dilaudid Inj) 0.5 mg Q1HWA PRN IV 08/26/17 10:30 09/09/17 10:29 08/26/17 18:08 0.5 MG Naloxone HCl (Narcan Inj) 0.1 mg Q5M PRN IV 08/26/17 18:45 09/25/17 18:44 Miscellaneous Information (Incremental HOME STAGER Titration) 1 ea QS N/A 08/27/17 00:00 09/26/17 00:00 Hydromorphone HCl (Dilaudid Well Service Floor Worker) 25 mg PRN PRN IV 08/26/17 18:45 09/09/17 18:44 08/27/17 02:50 25 MG Sodium Chloride 1,000 ml @ 15 mls/hr Q24H IV 08/26/17 18:39 09/25/17 18:38 Assessment and Plan Problem List Medical Problems: (1) Dehydration Status: Acute (2) Hematuria Status: Acute (3) Nausea Status: Acute (4) Pyelonephritis Status: Acute (5) Renal colic Status: Acute (6) Right flank pain Status: Acute (7) Right ovarian cyst Status: Acute (8) Vomiting Status: Acute Post-Op Day#: 1 Continue Routine Care: 32yo F POD 1 s/p elective CS for mild preeclampsia and BTL Continue routine care Encourage ambulation, breast feeding, pain control with rx prn Resident Physician Supervision Note: I interviewed and examined the patient. Discussed with Dr. Bah and agree with findings and plan as documented in the note. Any exceptions or clarifications are listed here: BP's stable this AM. Discussed surgery and findings. Discussed failed spinal and need for general anesthesia. Discussed findings of right ovarian cyst and decision for cystectomy. All questions answered of the patient. Documented By: Lloyd Sagastume Resident Tracking Resident Involvement: Resident Care Provided Care Provided: OB Delivery
[2017-08-27] MEDS ORDERED: ONDANSETRON INJ 2 MG/ML 2 ML VIAL IV PRN (07:00)
[2017-08-27] MEDS ORDERED: OXYCODONE/ACETAMINOPHEN 5-325 TAB PO PRN (07:00)
[2017-08-27] MEDS ORDERED: DC INTRASPINAL MORPHINE ONE (07:00)
[2017-08-27] MEDS ORDERED: DiphenhydrAMINE HCL 50 MG/ML VIAL IV PRN (07:00)
--- NOTE | 2017-08-27 07:22 | Anesthesiology Progress Note ---
Anesthesia Post Op Note Date & Time Aug 27, 2017 at 07:15 Vital Signs Pain Intensity: 2.0 Vital Signs Past 12 Hours Date Time Temp Pulse Resp B/P (MAP) Pulse Ox O2 Delivery O2 Flow Rate FiO2 08/27/17 06:15 18 94 08/27/17 05:15 18 93 08/27/17 05:05 36.8 92 16 116/74 (88) 93 Room Air 08/27/17 04:15 16 93 08/27/17 03:15 18 93 08/27/17 02:20 18 95 08/27/17 01:15 16 93 08/27/17 00:15 93 Room Air 08/27/17 00:15 18 93 08/27/17 00:15 37.4 97 18 107/70 (82) 93 Room Air 08/26/17 23:15 18 93 08/26/17 22:15 16 93 08/26/17 21:15 16 94 08/26/17 20:15 18 95 08/26/17 20:15 37.1 90 18 121/78 (92) 95 Room Air Notes Mental Status: alert / awake / arousable, participated in evaluation Pt Amnestic to Procedure: Yes Nausea / Vomiting: adequately controlled Pain: adequately controlled Airway Patency, RR, SpO2: stable & adequate BP & HR: stable & adequate Hydration State: stable & adequate Anesthetic Complications: no major complications apparent Anesthetic Complications: Spoke with Dennis and her again about her intraoperative course yesterday. This morning the patient reports that the oral discomfort from her oral laceration along the right soft palate and gum line are improving. On exam , the lacerations are improved and there is no evidence of infection. She says that she had a sore throat last night, but that is also better this morning. This morning she does report bilateral jaw pain, probably due to the mask ventilation yesterday. This should respond to motrin and should improve without additional intervention. 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 Otherwise, patient and baby are doing well today.
[2017-08-27] MEDS: PRENATAL VITAMIN TAB PO SCH (08:04)
[2017-08-27] MEDS: FERROUS SULFATE 325 MG TAB PO SCH (08:04)
[2017-08-27] MEDS: IBUPROFEN 600 MG TAB PO PRN ×4 (08:05→20:13)
[2017-08-27] MEDS: OXYCODONE/ACETAMINOPHEN 5-325 TAB PO PRN ×4 (08:06→20:13)
--- NOTE | 2017-08-27 13:06 | Anesthesiology Progress Note ---
Anesthesia Progress Note Date of Service Aug 27, 2017. Progress Notes Ms. Hutchins had difficulty being intubated yesterday during and sustained small airway lacerations during intubation. Today, patient started to eat solids and felt as if she was still swollen. She denied actual trouble swallowing and denied problems ventilating but it was "puffy" around her hard palate and painful. I looked in patient's mouth and she had two very small areas that appeared irritated with small abrasions. After discussion with patient, determination was made for another single dose of decadron as it had been approximately 24 hours since her last dose. 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 All questions were answered and patient agreed to plan. Will continue to follow.
[2017-08-27] MEDS ORDERED: DEXAMETHASONE INJ 8 MG in SYRINGE 0 ML IV ONE (13:45)
[2017-08-27] MEDS: SIMETHICONE 80 MG CHEW PO PRN (16:11)
[2017-08-27] MEDS: SENNA 8.6 MG TAB PO SCH (21:56)
[2017-08-27] MEDS: MAGNESIUM HYDROXIDE SUSP 30 ML UDC PO SCH (22:00)
[2017-08-28] VITALS: BP 116/74; PULSE 84; TEMP 36.9
[2017-08-28] MEDS: OXYCODONE/ACETAMINOPHEN 5-325 TAB PO PRN ×5 (03:44→23:05)
[2017-08-28] MEDS: IBUPROFEN 600 MG TAB PO PRN ×5 (03:44→23:07)
[2017-08-28 06:32] LABS: HEMATOCRIT 25.2 % (37-47); HEMOGLOBIN 7.8 g/dL (12.0-16.0)
--- NOTE | 2017-08-28 06:45 | Progress Note ---
Subjective Aug 28, 2017. Subjective conversation w/ patient, physical exam Ambulation: ambulating normally Voiding: no voiding problems Passing Gas: Yes Diet Tolerance: Regular Diet Lochia: Small Feeding Type: Breast Feeding Pain: Minimal; well controlled Comment: Pt seen and assessed at bedside this am; no acute events overnight Review of Systems Constitutional: No fever, No chills Respiratory: No cough, No shortness of breath Cardiac: + edema, No chest pain Abdomen: No nausea, No vomiting Female : No dysuria no headaches or calf tenderness reported Objective Vital Signs Date Time Temp Pulse Resp B/P (MAP) Pulse Ox O2 Delivery O2 Flow Rate FiO2 08/28/17 00:00 Room Air 08/28/17 00:00 36.9 84 18 116/74 (88) Room Air 08/27/17 16:15 Room Air 08/27/17 16:15 36.7 94 18 106/67 (80) 96 Room Air 08/27/17 09:00 96 Room Air 08/27/17 08:15 Room Air 08/27/17 07:31 37.1 92 14 118/76 (90) 96 Room Air Physical Exam General Appearance: WELL-APPEARING, WD/WN, NO APPARENT DISTRESS Respiratory/Chest: chest non-tender, lungs clear Cardiovascular: regular rate, rhythm Abdomen: normal bowel sounds, non tender, soft Fundus: Firm, Non-Tender, Relation to Umbilicus (difficult to assess d/t body habitus) Incision Description: Clean, Dry & Intact Extremities: normal range of motion, non-tender, normal inspection, no calf tenderness, + pedal edema (2+ bilat) Laboratory Results Last 24 Hours Test 08/28/17 06:04 Hemoglobin 7.8 g/dL Hematocrit 25.2 % Medications Current Inpatient Medications Medications (Trade) Dose Ordered Sig/Yasmine Route Start Time Stop Time Status Last Admin Dose Admin Lactated Ringer's 1,000 ml @ 125 mls/hr Q8H IV 08/26/17 06:00 09/25/17 05:59 08/27/17 02:47 125 MLS/HR Oxycodone/ Acetaminophen (Percocet 5-325mg Tab) 1 tab Q4H PRN PO 08/27/17 07:00 09/10/17 06:59 08/28/17 03:44 1 TAB Oxycodone/ Acetaminophen (Percocet 5-325mg Tab) 2 tab Q4H PRN PO 08/27/17 07:00 09/10/17 06:59 Ibuprofen (Motrin Tab) 600 mg Q4H PRN PO 08/26/17 09:30 09/25/17 09:29 08/28/17 03:44 600 MG Ondansetron HCl (Zofran Inj) 4 mg Q4H PRN IV 08/27/17 07:00 09/26/17 06:59 Prenat Multivit/ [place]/Iron/Folic Ac ( Vitamin Tab) 1 tab DAILY PO 08/27/17 08:00 09/26/17 07:59 08/27/17 08:04 1 TAB Magnesium Hydroxide (Milk Of Magnesia Susp) 30 ml HS PO 08/27/17 22:00 09/26/17 21:59 Ferrous Sulfate (Feosol Tab) 325 mg DAILY PO 08/27/17 08:00 09/26/17 07:59 08/27/17 08:04 325 MG Cocaine HCl (Supercream 0.870% Cr) BID PRN EXT 08/26/17 09:30 09/09/17 09:29 Lanolin (Lanolin Oint) PRN PRN EXT 08/26/17 09:30 09/25/17 09:29 Hydrocortisone Acetate (Anusol Hc Supp) 25 mg BID PRN VT 08/26/17 09:30 09/25/17 09:29 Benzocaine (Dermoplast Aero Spr) 1 appln PRN PRN EXT 08/26/17 09:30 09/25/17 09:29 Diphenhydramine HCl (Benadryl Cap) 25 mg QID PRN PO 08/27/17 07:00 09/26/17 06:59 Diphenhydramine HCl (Benadryl Inj) 25 mg QID PRN IV 08/27/17 07:00 09/26/17 06:59 Senna (Senokot Tab) 17.2 mg HS PO 08/27/17 22:00 09/26/17 21:59 08/27/17 21:56 17.2 MG Hydromorphone HCl (Dilaudid Inj) 0.5 mg Q1HWA PRN IV 08/26/17 10:30 09/09/17 10:29 08/26/17 18:08 0.5 MG Simethicone (Mylicon Chew Tab) 80 mg Q6H PRN PO 08/27/17 12:30 09/26/17 12:29 08/27/17 16:11 80 MG Assessment and Plan Problem List Medical Problems: (1) Dehydration Status: Acute (2) Hematuria Status: Acute (3) Nausea Status: Acute (4) Pyelonephritis Status: Acute (5) Renal colic Status: Acute (6) Right flank pain Status: Acute (7) Right ovarian cyst Status: Acute (8) Vomiting Status: Acute Post-Op Day#: 2 Continue Routine Care: 32 yo F, POD #2 s/p section for pre-eclampsia and bilateral tubal ligation Pt doing well clinically. Swelling inside mouth from intubation improved with steroids. BPs have normalized since delivery Continue routine care, encourage ambulation, breast feeding Pain control with rx prn Plan to D/C tomorrow Resident Physician Supervision Note: I was present with [Name of resident] during the history and exam. I discussed the case with the resident and agree with the findings and plan as documented in the note. Any exceptions or clarifications are listed here: [None ] Documented By: Sho Cole Resident Tracking Resident Involvement: Resident Care Provided Care Provided: OB Delivery
--- NOTE | 2017-08-28 07:23 | Discharge Instructions ---
Discharge Instructions Date of Service Aug 28, 2017. Admission Reason for Admission: History Of Delivery, Desires Sterilizatio Discharge Discharge Diagnosis / Problem: s/p CS and BTL Discharge Goals Goal(s): Routine recovery after Medications Continue Dispensed Medications: lansinoh Activity Recommendations Activity Limitations: per Instructions/Follow-up section . Instructions / Follow-Up Instructions / Follow-Up ACTIVITY RECOMMENDATIONS: * Gradual return to full activity over the next 2-3 weeks. * No lifting - nothing heavier than baby over the next 2-3 weeks. * Do not engage in vigorous exercise, sexual activity or sports until cleared by your physician. * Do not drive or operate any motorized equipment until cleared by your physician. * You may shower/bathe daily. MEDICATIONS: For discomfort or pain, you may use Acetaminophen (Tylenol), Ibuprofen (Advil), or Naproxen (Aleve) following the package directions. For constipation you may use Colace following the package directions. BREAST CARE: If you are not breast feeding: * Wear a supportive bra 24 hours a day for one to two weeks. * Avoid stimulating your breasts and nipples as much as possible during the first few weeks after delivery. * When taking a shower, have the warm water hit your back, not breasts. * When your breasts feel full, apply ice packs. Usually three to four times a day helps ease the discomfort. * Take a mild pain medication (Tylenol / Motrin) when you are uncomfortable. If breast feeding: * Use breast milk to lubricate nipples. Lansinoh cream may be used for sore nipples. You do not need to remove cream prior to breast feeding. If using a different brand of cream, check the label for directions regarding removal of cream prior to nursing. * Wear a supportive bra. * If having problems with breasts or breast feeding, call a aws consultant or your health care provider. SPECIAL CARE INSTRUCTIONS: When you are discharged from the hospital, it is important for you to follow the instructions listed below: * During the first week at home, you should be able to care for yourself and your baby. In addition, the usual light household activities are encouraged. * Limit your activities to the way you feel. Do not try to clean the house or move furniture. Be sensible. * If you actively engage in sports and have done so up until the time of your delivery, you may resume these activities as soon as you feel able. This may take up to one month or even longer. Use good judgment. * Continue to take your vitamins for at least six weeks after the of your baby. * Your diet need not be limited unless you were on a special diet before your delivery. Breast-feeding mothers need around 2500 calories per day and at least 64-80 ounces of fluid per day (8 to 10 glasses). * You should eat foods from the four major food groups. Crash diets or fad diets are to be avoided. Eating lean meats, fresh fruits and vegetables, low-fat dairy products, high fiber foods and a regular exercise program, will help you get back to your pre- weight without putting your health at risk. * Constipation is sometimes a problem after delivery. Take a mild laxative as needed. If breast feeding, Milk of Magnesia is acceptable to use. You may use a suppository or Fleets enema. * A daily shower or tub bath is suggested. Wash incision daily with warm soapy water and pat dry. It doesn't need to be covered unless drainage is present. * A bloody vaginal discharge will usually continue until around four weeks . A small amount of bleeding may continue for as long as six weeks. Vaginal discharge changes from the bright red bleeding after delivery to pink then brownish and finally yellowish-pink before becoming white and disappearing. * Bleeding may increase with activity. Your first period may come in 4-8 weeks. If you are breast feeding, your period may be delayed even longer. * Deltana (sex) can begin whenever both you and your partner feel comfortable and do not have any form of genital infection. It is recommended that you wait at least six weeks for internal and external healing to occur. If you have questions, please talk to your health care practitioner. A condom should be used to prevent infection and . * Foreplay, gentle intercourse and lubrication is very important the first several times to prevent pain. A water-based lubricant such as K-Y jelly or Astroglide may be used. * If you have RH negative blood and your baby is RH positive, you will receive RHOGAM by injection prior to discharge. The nurse will give you a card to keep with you that has the date and place that you received RHOGAM after delivery. * During your care, you had a Rubella screen done to check for the presence of rubella antibodies in your blood. If your test was negative, you will receive a Rubella vaccine prior to discharge. This vaccine may cause a fever, soreness at the injection site and flu-like symptoms. If these symptoms persist, notify your health care practitioner. is not advised for one month after a Rubella vaccine. * Verbalizes understanding of car seat law as reviewed with patient nursing. * Car Seat hand-out given and reviewed with patient by nursing. * Shaken baby information reviewed with patient by nursing. Call you doctor if: * Heavy bleeding (saturating several pads an hour) or passing clots the size of your fist. * A fever >101 degrees F (38.3 degrees C) on two occasions four hours apart and /or chills. * Unusual pain in the pelvic or vaginal areas. * Call the doctor for any increased redness, drainage or swelling around the incision and any pain unrelieved by prescribed pain medication. * "Baby Blues" lasting longer than two weeks. If you have any questions or concerns, call your health care practitioner at . FOLLOW UP VISIT: * Please call the office at to schedule a 6 week examination. It is important you keep this appointment. It is important for you to make arrangements for either yearly or twice yearly check-ups thereafter. Current Hospital Diet Patient's current hospital diet: Regular OB Diet Discharge Diet Recommended Diet: Regular OB Diet Procedures Procedures Performed: 1. Repeat low transverse section 2. Bilateral tubal ligation 3) Right Ovarian Cystectomy Pending Studies Studies pending at discharge: no Medical Emergencies . Who to Call and When: Medical Emergencies: If at any time you feel your situation is an emergency, please call [phone] immediately. . Non-Emergent Contact Non-Emergency issues call your: [employer] . . "Provider Documentation" section prepared by Afia Bah. .
[2017-08-28 07:59] VITALS: BP 142/84; PULSE 82; TEMP 36.9
[2017-08-28] MEDS: SIMETHICONE 80 MG CHEW PO PRN ×3 (08:26→21:55)
[2017-08-28] MEDS: PRENATAL VITAMIN TAB PO SCH (08:26)
[2017-08-28] MEDS: FERROUS SULFATE 325 MG TAB PO SCH (08:26)
--- NOTE | 2017-08-28 09:03 | Anesthesiology Progress Note ---
Anesthesia Post Op Note Date & Time Aug 28, 2017 at 08:59 Vital Signs Pain Intensity: 4.0 Vital Signs Past 12 Hours Date Time Temp Pulse Resp B/P (MAP) Pulse Ox O2 Delivery O2 Flow Rate FiO2 08/28/17 07:59 36.9 82 18 142/84 (103) Room Air 08/28/17 00:00 Room Air 08/28/17 00:00 36.9 84 18 116/74 (88) Room Air Notes Mental Status: alert / awake / arousable, participated in evaluation Pt Amnestic to Procedure: Yes Nausea / Vomiting: adequately controlled Pain: adequately controlled Airway Patency, RR, SpO2: stable & adequate BP & HR: stable & adequate Hydration State: stable & adequate Anesthetic Complications: no major complications apparent Anesthetic Complications: Patient reports significant improvement in her sore throat and mouth pain after her redose of Decadron yesterday. She feels that the oral laceration is almost completely healed. She is tolerating regular meals and denies any kind of airway difficulties. Provided her with information on how to reach either myself or the anesthesia department if she has any additional questions or concerns after her planned discharge tomorrow.
[2017-08-28 12:04] VITALS: BP 123/83; PULSE 87; TEMP 36.3
[2017-08-28 15:15] VITALS: BP 118/66; PULSE 80; TEMP 36.5; O2SAT 97
[2017-08-28] MEDS ORDERED: OXYC-57 PO (16:45)
[2017-08-28] MEDS ORDERED: MTR600X PO (16:45)
[2017-08-28] MEDS: MAGNESIUM HYDROXIDE SUSP 30 ML UDC PO SCH (21:53)
[2017-08-28] MEDS: SENNA 8.6 MG TAB PO SCH (21:55)
[2017-08-29] VITALS: BP 126/80; PULSE 79; TEMP 36.6; O2SAT 99
[2017-08-29] MEDS: IBUPROFEN 600 MG TAB PO PRN ×3 (03:55→12:30)
[2017-08-29] MEDS: OXYCODONE/ACETAMINOPHEN 5-325 TAB PO PRN ×3 (03:56→12:31)
[2017-08-29 06:40] LABS: HEMATOCRIT 24.7 % (37-47); HEMOGLOBIN 7.8 g/dL (12.0-16.0)
--- NOTE | 2017-08-29 06:47 | Progress Note ---
Subjective Aug 29, 2017. Subjective conversation w/ patient, physical exam Ambulation: ambulating normally Voiding: no voiding problems Passing Gas: Yes Diet Tolerance: Regular Diet Lochia: Small Feeding Type: Breast Feeding Pain: Minimal pain, well controlled Comment: pt seen and assessed at bedside today; no acute events overnight Review of Systems Constitutional: No fever, No chills Respiratory: No cough, No shortness of breath Cardiac: + edema (c/o worsening LE edema from ankle to thigh; resultant numbness/tingling in toes), No chest pain Abdomen: No nausea, No vomiting Female : No dysuria no headaches or calf pain reported Objective Vital Signs Date Time Temp Pulse Resp B/P (MAP) Pulse Ox O2 Delivery O2 Flow Rate FiO2 08/29/17 00:00 36.6 79 18 126/80 (95) 99 Room Air 08/29/17 00:00 99 Room Air 08/28/17 15:15 97 Room Air 08/28/17 15:15 36.5 80 18 118/66 (83) 97 Room Air 08/28/17 12:04 36.3 87 18 123/83 (96) Room Air 08/28/17 08:30 Room Air 08/28/17 07:59 36.9 82 18 142/84 (103) Room Air Physical Exam General Appearance: WELL-APPEARING, WD/WN, NO APPARENT DISTRESS Respiratory/Chest: chest non-tender, lungs clear, normal breath sounds Cardiovascular: regular rate, rhythm, no murmur Abdomen: normal bowel sounds, non tender, soft Fundus: Firm, Non-Tender, Relation to Umbilicus (difficult to assess d/t pt body habitus) Incision Description: Clean, Dry & Intact Extremities: normal range of motion, non-tender, no calf tenderness, + pedal edema (2+ bilaterally) Laboratory Results Last 24 Hours Test 08/29/17 06:31 Medications Current Inpatient Medications Medications (Trade) Dose Ordered Sig/Yasmine Route Start Time Stop Time Status Last Admin Dose Admin Lactated Ringer's 1,000 ml @ 125 mls/hr Q8H IV 08/26/17 06:00 09/25/17 05:59 08/27/17 02:47 125 MLS/HR Oxycodone/ Acetaminophen (Percocet 5-325mg Tab) 1 tab Q4H PRN PO 08/27/17 07:00 09/10/17 06:59 08/29/17 03:56 1 TAB Oxycodone/ Acetaminophen (Percocet 5-325mg Tab) 2 tab Q4H PRN PO 08/27/17 07:00 09/10/17 06:59 Ibuprofen (Motrin Tab) 600 mg Q4H PRN PO 08/26/17 09:30 09/25/17 09:29 08/29/17 03:55 600 MG Ondansetron HCl (Zofran Inj) 4 mg Q4H PRN IV 08/27/17 07:00 09/26/17 06:59 Prenat Multivit/ [place]/Iron/Folic Ac ( Vitamin Tab) 1 tab DAILY PO 08/27/17 08:00 09/26/17 07:59 08/28/17 08:26 1 TAB Magnesium Hydroxide (Milk Of Magnesia Susp) 30 ml HS PO 08/27/17 22:00 09/26/17 21:59 Ferrous Sulfate (Feosol Tab) 325 mg DAILY PO 08/27/17 08:00 09/26/17 07:59 08/28/17 08:26 325 MG Cocaine HCl (Supercream 0.870% Cr) BID PRN EXT 08/26/17 09:30 09/09/17 09:29 Lanolin (Lanolin Oint) PRN PRN EXT 08/26/17 09:30 09/25/17 09:29 Hydrocortisone Acetate (Anusol Hc Supp) 25 mg BID PRN MD 08/26/17 09:30 09/25/17 09:29 Benzocaine (Dermoplast Aero Spr) 1 appln PRN PRN EXT 08/26/17 09:30 09/25/17 09:29 Diphenhydramine HCl (Benadryl Cap) 25 mg QID PRN PO 08/27/17 07:00 09/26/17 06:59 Diphenhydramine HCl (Benadryl Inj) 25 mg QID PRN IV 08/27/17 07:00 09/26/17 06:59 Senna (Senokot Tab) 17.2 mg HS PO 08/27/17 22:00 09/26/17 21:59 08/28/17 21:55 17.2 MG Hydromorphone HCl (Dilaudid Inj) 0.5 mg Q1HWA PRN IV 08/26/17 10:30 09/09/17 10:29 08/26/17 18:08 0.5 MG Simethicone (Mylicon Chew Tab) 80 mg Q6H PRN PO 08/27/17 12:30 09/26/17 12:29 08/28/17 21:55 80 MG Assessment and Plan Problem List Medical Problems: (1) Dehydration Status: Acute (2) Hematuria Status: Acute (3) Nausea Status: Acute (4) Pyelonephritis Status: Acute (5) Renal colic Status: Acute (6) Right flank pain Status: Acute (7) Right ovarian cyst Status: Acute (8) Vomiting Status: Acute Post-Op Day#: 3 Continue Routine Care: Resident Physician Supervision Note: I was present with Dr. Bah during the history and exam. I discussed the case with the resident and agree with the findings and plan as documented in the note. Any exceptions or clarifications are listed here: [None] Documented By: Catherine Knowles 32yoF, POD#3 s/p CS for pre-eclampsia and BTL. Pressures have normalized since delivery Pt doing well clinically Continue routine care, encourage ambulation/breast feeding Pain control wth rx prn Discharge instructions reviewed Resident Tracking Resident Involvement: Resident Care Provided Care Provided: OB Delivery
[2017-08-29] MEDS ORDERED: FRRS300 PO (07:47)
[2017-08-29 07:50] VITALS: BP 126/81; PULSE 83; TEMP 36.7; O2SAT 97
[2017-08-29] MEDS: FERROUS SULFATE 325 MG TAB PO SCH (07:50)
[2017-08-29] MEDS: PRENATAL VITAMIN TAB PO SCH (07:50)
[2017-08-29 10:59] VITALS: BP_DIAS 81; PULSE 83; TEMP 36.7
--- NOTE | 2017-08-29 11:10 | DISCHARGE SUMMARY ---
ADMITTING DIAGNOSES: 1. Complicated at 37+ weeks gestational age. 2. Mild preeclampsia. 3. Insulin requiring gestational diabetes. 4. Desired permanent surgical sterilization. 5. Previous section. DISCHARGE DIAGNOSES: 1. Same. 2. A 4 cm right ovarian cyst. PROCEDURES PERFORMED: 1. Repeat low cervical transverse section. 2. Bilateral tubal ligation. 3. Right ovarian cystectomy. DISCHARGE MEDICATIONS: 1. Percocet 5/325 1-2 p.o. q. 4-6 hours p.r.n. pain. 2. Motrin 600 mg p.o. q. 6 hours p.r.n. pain. 3. Iron sulfate 325 mg p.o. daily. ADMISSION HISTORY: The patient is a 32-year-old 3, para 0-1-1-1 with an EDC of 14 September at 37+ weeks gestational age who was admitted for repeat section for term preeclampsia. The patient was diagnosed with preeclampsia the week prior to delivery with elevated blood pressures and a 24-hour urine greater than 300 mg. Because of the patient's gestational age and previous section, she was admitted for the repeat section. The patient carries a diagnosis of gestational diabetes which is required insulin for control. Control has been moderate at best with abdominal circumferences all greater than the 95th percentile. The patient's previous ended at 35 weeks gestational age with a primary section for preeclampsia. Because of the risk of preeclampsia with the , the patient has been on baby aspirin 81 mg daily until 36 weeks gestational age. Laboratory values for this show a blood type of O positive, antibody negative, rubella immune, hepatitis B negative. She had a negative cell free DNA screening and did not have a third trimester beta strep culture. PHYSICAL EXAMINATION: GENERAL: Showed a morbidly obese, gravid female in no acute distress. VITAL SIGNS: Blood pressure 138/86 and a weight of 314 pounds. HEENT: Unremarkable. NECK: Supple. LUNGS: Clear. HEART: With a regular rhythm and rate. ABDOMEN: Gravid, obese. Positive heart tones, estimated weight of 8 pounds. PELVIC: Shows the cervix to be long, thick and closed. EXTREMITIES: Showed +3 pitting edema. NEUROLOGIC: DTRs were 2+ without clonus. ADMISSION LABORATORY VALUES: Showed an H&H of 11.1 and 36.3, platelet count of 244,000. Liver function tests were within normal limits and coagulation was within normal limits. HOSPITAL COURSE: On day of admission, the patient was taken to the operating room where she underwent the above listed procedures. The patient had a failed spinal anesthesia x2 requiring general endotracheal anesthesia. She delivered a viable female with Apgars of 2 at one minute and 7 at five minutes and a weight of 8 pounds 4 ounces. She had a normal appearing left tube and ovary. There were adhesions of the distal right tube to a 5 cm right ovarian cyst. Right ovarian cystectomy with right fimbriectomy and left tubal ligation performed. Postoperatively, the patient did well. Doty catheter was removed on the first postoperative day. H&H came back at 8.3 and 26.6. The patient tolerated the anemia postoperatively and was discharged home on the third postoperative day with routine discharge instructions and the prescriptions for the medications as listed as above. Pathology from the procedure is pending at the time of discharge. The patient was given a routine discharge instruction. She will follow up in the office in 2 weeks' time for a postoperative check but as always she has been instructed to call with any questions, problems or difficulties.
== END 2017-08-29 14:30 | disposition home or self-care (01) | DRG 765 ==
LOC: C.LD 05:58 → C.OBG 11:35 → EDSTATUS 09-12 07:30
PROVIDERS: ADMIT Obstetrics & Gynecology; ATTEND Obstetrics & Gynecology
PROC: 10D00Z1 Extraction of Products of Conception, Low, Open Approach (ICD-10-PCS; principal; 2017-08-26 07:30)
PROC: 0UL50CZ Occlusion of Right Fallopian Tube with Extraluminal Device, Open Approach (ICD-10-PCS; principal; 2017-08-26 07:30)
PROC: 0UB00ZZ Excision of Right Ovary, Open Approach (ICD-10-PCS; principal; 2017-08-26 07:30)
PROC: 0UL60ZZ Occlusion of Left Fallopian Tube, Open Approach (ICD-10-PCS; principal; 2017-08-26 07:30)
DX: O14.04 Mild to moderate pre-eclampsia, complicating childbirth (principal); Z68.42 Body mass index [BMI] 45.0-49.9, adult; O24.424 Gestational diabetes mellitus in childbirth, insulin controlled; O74.6 Other complications of spinal and epidural anesthesia during labor and delivery; O74.7 Failed or difficult intubation for anesthesia during labor and delivery; O9A.22 Injury, poisoning and certain other consequences of external causes complicating childbirth; S01.512A Laceration without foreign body of oral cavity, initial encounter; O34.83 Maternal care for other abnormalities of pelvic organs, third trimester; N83.201 Unspecified ovarian cyst, right side; O69.81X0 Labor and delivery complicated by cord around neck, without compression, not applicable or unspecified; O99.214 Obesity complicating childbirth; E66.01 Morbid (severe) obesity due to excess calories; O99.62 Diseases of the digestive system complicating childbirth; K21.9 Gastro-esophageal reflux disease without esophagitis; Z3A.37 37 weeks gestation of pregnancy; Z37.0 Single live birth; Z30.2 Encounter for sterilization; Y84.8 Other medical procedures as the cause of abnormal reaction of the patient, or of later complication, without mention of misadventure at the time of the procedure; Y92.234 Operating room of hospital as the place of occurrence of the external cause; Z87.59 Personal history of other complications of pregnancy, childbirth and the puerperium; Z79.82 Long term (current) use of aspirin; Z88.5 Allergy status to narcotic agent; Z98.890 Other specified postprocedural states

== ENCOUNTER → 2017-09-13 | Outpatient (CLI) | payer OTHER ==
[~2017-09-13] MED LIST changes: -ASPCH81X PO; -CEFAZOLIN 3000MG IV PUSH 22.5 ML IV SCH; -CEFAZOLIN IV 3,000 MG in SYRINGE 0 ML IV SCH; +FRRS300 PO; -INSHNI SC; -INSU100I2 SC; +MTR600X PO; +OXYC-57 PO
== END | disposition home or self-care (01) ==
LOC: C.LAB1850 07:28
PROVIDERS: ATTEND Obstetrics & Gynecology
DX: O24.414 Gestational diabetes mellitus in pregnancy, insulin controlled (principal)

== ENCOUNTER → 2017-10-08 | Outpatient (CLI) | payer OTHER ==
[2017-10-08 13:25] LABS: HEMOGLOBIN 11.4 g/dL (12.0-16.0); MEAN CELL VOLUME 83.7 fL (80-100); MEAN CORPUSCULAR HEMOGLOBIN 25.8 pg (25-34); MEAN CORPUSCULAR HGB CONC 30.8 g/dl (32-36); MEAN PLATELET VOLUME 10.9 fL (7.4-10.4); PLATELET COUNT 361 K/uL (130-400); RED CELL DISTRIBUTION WIDTH CV 16.1 % (11.5-14.5); RED CELL DISTRIBUTION WIDTH SD 49.2 fL (36.4-46.3); WHITE BLOOD COUNT 8.01 K/uL (4.8-10.8)
== END | disposition home or self-care (01) ==
LOC: C.LAB1850 11:54
PROVIDERS: ATTEND Obstetrics & Gynecology
DX: Z39.2 Encounter for routine postpartum follow-up (principal)

== ENCOUNTER → 2018-01-14 | Outpatient (CLI) | payer OTHER | END | disposition home or self-care (01) | LOC: C.LAB 09:14 | PROVIDERS: ATTEND Family Medicine | DX: L65.9 Nonscarring hair loss, unspecified (principal); R68.89 Other general symptoms and signs ==

== ENCOUNTER 2022-04-30 05:56 | Observation (INO) ==
--- NOTE | 2022-04-19 10:52 | Communication Note ---
Patient scheduled for Panniculectomy with Suction Assisted Lipectomy of the Upper Abdomen and Bilateral Mastopexy 04/18/22. Per cardiology addendum 02/14/22, "Was asked by the patient to comment on her cardiac condition in reference to her upcoming surgery. She has a history of rare and brief sinus node dysfunction. In the past this resulted and presyncope and syncope. She had documented sinus node dysfunction and underwent successful implantation of a dual-chamber permanent pacemaker. She is not dependent on the pacemaker. Function of the pacemaker seems adequate at her last evaluation. I do not believe there are any contraindications to the intended procedure. Use of electrocautery during the procedure could inhibit the pacemaker, but this is unlikely to cause trouble as she he is at the device quite rarely. I do not believe there are any particular precautions or preoperative testing required in the she has been experiencing new or worsening symptoms." Per Fela at surgeon's office, she is coordinating pacer rep being present DOS (per Dr. Ndiaye/Dr. Lay recommendations).
--- NOTE | 2022-04-24 13:46 | Anesthesiology Consultation ---
Date of Service April 24, 2022 Assessment & Plan (1) Encounter for pre-operative examination: - COVID screening: Per assessment on 04/24: No known COVID-19 positive contacts or current COVID-19 related symptoms. Travel screen negative. Patient vaccinated. At surgeon discretion if preop Covid testing being done. - EP addendum (02/14/22): "Was asked by the patient to comment on her cardiac condition in reference to her upcoming surgery. She has a history of rare and brief sinus node dysfunction. In the past this resulted and presyncope and syncope. She had documented sinus node dysfunction and underwent successful implantation of a dual-chamber permanent pacemaker. She is not dependent on the pacemaker. Function of the pacemaker seems adequate at her last evaluation. I do not believe there are any contraindications to the intended procedure. Use of electrocautery during the procedure could inhibit the pacemaker, but this is unlikely to cause trouble as she he is at the device quite rarely. I do not believe there are any particular precautions or preoperative testing required in the she has been experiencing new or worsening symptoms." - Pacer rep requested: Case reviewed by Dr. Lay. Recommends pacer rep present DOS. Fela in OR/Maurice ([employer] rep) aware/coordinating availability for DOS. - Preop testing: No recent EKG. Will order for AM DOS. Chart Review Chart Review: Acceptable Risk for Surgery and Patient NOT seen in Pre Admission Testing History Surgery Operation Date: 04/30/22 07:15 Proposed Procedures p Panniculectomy with Suction Assisted Lipectomy of the Upper Abdomen and - Jazmine Ndiaye MD s Bilateral Mastopexy - Jazmine Ndiaye MD Height/Weight Height: 5 ft 7 in Weight: 95.254 kg Allergies Allergy/AdvReac Type Severity Reaction Status Date / Time meperidine Allergy Severe Tongue Verified 04/24/22 13:25 swelling pine nut Allergy Severe Tongue Verified 04/24/22 13:25 swelling adhesive Allergy Mild Skin Verified 04/24/22 13:25 peeling (plastic tape) morphine AdvReac Mild Crushing Verified 04/24/22 12:46 sensation chest Medications Home Medications Medication Instructions Recorded Confirmed Last Taken pediatric multivitamin 1 tab PO DAILY 06/18/20 04/24/22 09/01/20 (Flintstones Multivitamin chewable tablet) oxycodone-acetaminophen 5 mg-325 1 tab PO Q4H PRN pain #18 tabs 04/18/22 04/24/22 Unknown mg tablet (Endocet) Past Medical History Medical History Anxiety Dyslipidemia History of bradycardia AV node dysfunction > pacemaker insertion Migraine Motor tic disorder Pacemaker [employer] 05/2021 Follows w/Dr. Escobar PCOS (polycystic ovarian syndrome) Pituitary adenoma "undetectable" on most recent evaluation Past Family History Family History Mother Hypertension Hyperlipidemia Father Peptic ulcer Denies family history of Ovarian cancer Breast cancer Colorectal cancer Uterine cancer Past Surgical History Surgical History H/O gastric sleeve History of anesthesia reaction Hx jaw locking with intubation (rapid intubation for , failed spinal) Nausea and vomiting after administration of anesthetic agent S/P section x2 S/P dilatation and curettage S/P laparoscopic cholecystectomy S/P placement of cardiac pacemaker S/P shoulder surgery S/P tonsillectomy S/P tooth extraction S/P tubal ligation Social History Smoking Status: Never smoker Do You Dip or Chew Tobacco: No Hx Alcohol Use: Yes (socially) alcohol intake frequency: holidays/special occasions only Hx Substance Use: No substance use type: does not use Lab Results Anesthesia Preop Results Results Anesthesia Widget: WBC 7.00 K/ul (4.8-10.8) 04/20/22 Hgb 14.0 g/dl (12.0-16.0) 04/20/22 Hct 42.5 % (34.1-44.9) 04/20/22 Plt 206 K/uL (130-400) 04/20/22 Na 140 mmol/L (136-145) 04/20/22 K 3.9 mmol/L (3.5-5.1) 04/20/22 Cl 108 mmol/L (98-107) H 04/20/22 CO2 27 mmol/L (21-32) 04/20/22 BUN 11 mg/dl (6-23) 04/20/22 Creat 0.79 mg/dl (0.6-1.2) 04/20/22 Glucose Level 85 mg/dl (70-99(Fasting)) 04/20/22 PT 10.0 Seconds (9.0-12.0) 04/20/22 INR 0.9 (0.9-1.1) 04/20/22 Testing Electrocardiogram Date: 07/11/20 NSR at 93bpm. Possible LAE. Chest X-Ray Date: 06/01/21 FINDINGS: No pneumothorax or no pleural effusions. The heart is normal in size. The lungs are clear. Mild S-shaped scoliosis of the thoracolumbar spine. There is a right-sided dual-chamber pacemaker. The leads appear intact. Prior cholecystectomy. IMPRESSION: Interval placement of a right-sided dual-chamber pacemaker. No pneumothorax. Echocardiogram Date: 06/22/20 EF 55-60%. No RWMA. No significant valvular disease. Other Testing Pacer check (07/04/21) [employer]. Normal parameters noted on batter and lead(s). 2 SVT episodes. Once episode of what appears to be sinus tachycardia. Small R w aves which are stable. Pacer check (10/09/21- per EP office visit) "normally functioning dual-chamber permanent pacemaker. The bipolar ventricular sensing was slightly low. I checked the sensing in unipolar which was much better. I switched the device to unipolar sensing.. I reviewed the results of her device interrogation performed today. Normal device function. Estimated longevity of 14.7 years. Pacing in the atrium 22 percent of the time. No significant ventricular pacing. Occasional episodes of SVT which appeared to be sinus tachycardia."
[2022-04-30] MEDS ORDERED: LR 15ML/HR IV SCH (06:00)
[2022-04-30] MEDS ORDERED: ceFAZolin 2000MG 2,000 MG/15 ML SYR IV SCH (06:00)
[2022-04-30] MEDS ORDERED: ePHEDrine sulfate 50 MG/ML AMP IV PRN ×2 (06:30→15:20)
[2022-04-30] MEDS ORDERED: PROMETHAZINE HCL 6.25 MG in SODIUM CHLORIDE 0.9% 50 ML IV PRN ×2 (06:30→15:20)
[2022-04-30] MEDS ORDERED: HYDROmorphone INJ 1 MG/ML SYRINGE IV PRN ×2 (06:30→15:20)
[2022-04-30] MEDS ORDERED: ATROPINE SULFATE 0.1 MG/ML 10ML SYR IV PRN ×2 (06:30→15:20)
[2022-04-30] MEDS ORDERED: fentaNYL citrate 100 MCG/2 ML VIAL IV PRN (06:30)
[2022-04-30] MEDS ORDERED: ONDANSETRON INJ 2 MG/ML 2 ML VIAL IV PRN ×3 (06:30→16:10)
--- NOTE | 2022-04-30 06:52 | History & Physical Bridge Note ---
Date of Service April 30, 2022 History & Physical Bridge Note I have examined the patient, reviewed the History & Physical and in the interval since the performance of the History & Physical I have noted the following changes of clinical significance: no changes noted
[2022-04-30] MEDS ORDERED: SCOPOLAMINE 1 MG TDSY TD ONE (06:54)
[2022-04-30] MEDS ORDERED: MIDAZOLAM HCL 1 MG/ML 2ML VIAL ONE (07:05)
[2022-04-30] MEDS ORDERED: PROPOFOL IV EMULSION 10 MG/ML 20 ML VIAL IV ONE ×5 (07:05→11:53)
[2022-04-30] MEDS ORDERED: GLYCOPYRROLATE 0.2 MG/ML VIAL ONE (07:05)
[2022-04-30] MEDS ORDERED: ONDANSETRON INJ 2 MG/ML 2 ML VIAL ONE ×2 (07:05→08:17)
[2022-04-30] MEDS ORDERED: fentaNYL citrate 100 MCG/2 ML VIAL ONE ×2 (07:05→15:09)
[2022-04-30] MEDS ORDERED: NEOSTIGMINE METHYLSULFATE 1 MG/ML 10ML VIAL ONE (07:05)
[2022-04-30] MEDS ORDERED: DEXAMETHASONE SOD INJ 4 MG/ML VIAL ONE (07:05)
[2022-04-30] MEDS ORDERED: ROCURONIUM BROMIDE 10 MG/ML 5 ML VIAL IV ONE ×3 (07:06→11:41)
[2022-04-30] MEDS ORDERED: LIDOCAINE 2% MPF LOCAL 5 ML VIAL INFIL ONE (07:06)
[2022-04-30] MEDS ORDERED: LARYING-O-JET KIT (LTA) ONE (07:06)
[2022-04-30] MEDS ORDERED: EPINEPHrine INJ 1 MG/ML AMP ONE ×2 (07:12→11:01)
[2022-04-30] MEDS ORDERED: BUPIVACAINE 0.25% 30 ML VIAL ONE (07:12)
[2022-04-30] MEDS ORDERED: LIDOCAINE 1% LOCAL 20 ML VIAL ONE ×2 (07:12→11:02)
[2022-04-30] MEDS ORDERED: LIDOCAINE 1%/EPINEPHRINE 1:100,000 50 ML VIAL ONE (07:16)
[2022-04-30] MEDS ORDERED: FAMOTIDINE/PF 20 MG/2 ML VIAL IV ONE (07:25)
[2022-04-30] MEDS ORDERED: ACETAMINOPHEN 1000 MG/100 ML IV IV ONE (07:25)
[2022-04-30] MEDS ORDERED: diphenhydrAMINE 50 MG/ML VIAL ONE ×2 (08:18→14:09)
[2022-04-30] MEDS ORDERED: HYDROmorphone INJ 1 MG/ML SYRINGE ONE ×2 (09:36→12:53)
[2022-04-30] MEDS ORDERED: ceFAZolin 330 MG/ML 1 GM VIAL ONE (11:41)
[2022-04-30] MEDS ORDERED: SODIUM CHLORIDE 0.9% INJ 10 ML VIAL ONE (11:41)
--- NOTE | 2022-04-30 14:53 | Post Operative Brief Note ---
PG Immediate Post Op with CF Date of Surgery April 30, 2022 Pre & Post Diagnosis Operation Date: 04/30/22 07:30 Pre-Op Diagnosis: Abdominal Pannus Post-Op Diagnosis: Abdominal Pannus I identified the patient and participated in the time-out.: Yes Procedure Operation Date: 04/30/22 07:30 Actual Procedures p Panniculectomy with Suction Assisted Lipectomy of the Upper Abdomen and(Bilateral) - Jazmine Ndiaye MD s Bilateral Mastopexy(Bilateral) - Jazmine Ndiaye MD Surgeon Jazmine Ndiaye MD Automatic Machines Supervisor Chen Fernandez PA-C Estimated Blood Loss 75 Findings Consistent with Post-Op Diagnosis bilateral NACs pink and viable at the end of the case Specimens Specimen Description: A. Right breast tissue B. Pannus Drains Dtoy Catheter (placed by Raffy Youssef/Keven Begum, 04/30/21 at 0815) and Agapito-Covarrubias Drain (15fr, x's 2) Anesthesia Type General Complications none
[2022-04-30] MEDS ORDERED: ceFAZolin 2000MG 2,000 MG/15 ML SYR IV ONE (15:00)
[2022-04-30] MEDS: fentaNYL citrate 100 MCG/2 ML VIAL IV PRN ×2 (15:10→15:15)
--- NOTE | 2022-04-30 15:10 | Surgery Progress Note ---
Date of Service April 30, 2022 Assessment & Plan (1) S/P panniculectomy: Plan: Doing well. Anticipate d/c in the AM. Subjective Patient resting in PACU. Physical Exam Physical Exam: wound vac holding suction. drains with serosang output Results & Data ([facility]) Vital Signs (Past 12 Hours) Vital Signs Temp Pulse Resp BP Pulse Ox O2 Del Method 04/30/22 06:22 37.3 C 67 20 137/83 97 Room Air PG Care Time/CCT Total # of Minutes Spent Total Time Spent with Patient: Total time spent is greater than 50% in coordination of care (as documented) at patient's floor/unit and/or counseling patient: Coding Level of Care Code None Diagnoses S/P panniculectomy Z98.890
--- NOTE | 2022-04-30 15:25 | Electrocardiogram Report ---
Test Reason : Blood Pressure : / mmHG Vent. Rate : 063 BPM Atrial Rate : 063 BPM P-R Int : 156 ms QRS Dur : 082 ms QT Int : 392 ms P-R-T Axes : 072 079 045 degrees QTc Int : 401 ms Sinus rhythm with intermittent atial pacing Abnormal ECG When compared with ECG of 11-JUL-2020 15:32, Atrial pacing is now present Confirmed by Nickolas Clark ([id number]) on 04/30/2022 3:25:18 PM Referred By: Jazmine Ndiaye Confirmed By:Nickolas Clark
--- NOTE | 2022-04-30 15:25 | Operative Report ---
PG Post Operative Report Pre & Post Diagnosis Operation Date: 04/30/22 07:30 Pre-Op Diagnosis: Abdominal Pannus Post-Op Diagnosis: Abdominal Pannus I identified the patient and participated in the time-out.: Yes Procedure Operation Date: 04/30/22 07:30 Actual Procedures p Panniculectomy with Suction Assisted Lipectomy of the Upper Abdomen and(Bilateral) - Jazmine Ndiaye MD s Bilateral Mastopexy(Bilateral) - Jazmine Ndiaye MD Surgeon Jazmine Ndiaye MD Machine Room Engineer Chen Fernandez PA-C Estimated Blood Loss 75 Findings Consistent with Post-Op Diagnosis Specimens pannus, right breast tissue to pathology Drains LOUIE x2 abdomen Anesthesia Type General Complications none Indications Status post 100 pound weight loss, overhanging abdominal pannus with intertrigo; desire for improvement in cosmetic appearance of the breasts and upper abdomen. Description of Procedure Risks, benefits, and alternatives of the procedure were explained to the patient agreed and signed consent. Patient was marked in the preoperative holding area, brought to the operating room, and positioned supine. She was placed under general anesthesia without incident. Doty catheter was placed. Surgical site was prepped and draped sterilely. I planned to begin with mastopexy, followed by suction assisted lipectomy of the upper abdomen, and finally with panniculectomy as the last portion of the procedure. I began with the left breast. 1% lidocaine with epinephrine was used to anesthetize the planned incisions. A 42 millimeter cookie cutter was used to circumscribe the left nipple areolar complex. 15 blade scalpel then made the mastopexy incisions. The skin between the incisions was de-epithelialized using a 15 blade scalpel. I then used electrocautery to make an incision through dermis and underlying subcutaneous fat along the upper medial and lateral portions of the deepithelialized area as well as at the superior margin of the keyhole incision. I raised a mastopexy flap medially, by incising the dermis and raising medial flap with about 1 cm of underlying soft tissue. 3-0 PDS suture was then used to reapproximate the T-junction, and wound closure was begun using 3-0 PDS interrupted dermal sutures to reapproximate the wounds, 3-0 PDS interrupted superficial dermal sutures were placed around the nipple areolar complex. Once inset of the nipple areolar complex was complete and the wound was closed in the dermal layer, 3-0 Monocryl running subcuticular suture was placed around the nipple areolar complex, vertical limb, and inframammary fold. An identical procedure was undertaken on the right side. Dermabond Prineo was applied to the vertical limb and inframammary fold incisions, Dermabond was placed around the nipple areolar complex. Attention was then turned to suction assisted lipectomy of the upper abdomen. Preoperatively, I marked the epigastric region as well as some prominent fat noted inferior to the inframammary folds bilaterally as well as in the pe riumbilical area. Several small access incisions were marked, injected with 1% lidocaine with epinephrine, incised using a 15 blade scalpel. Tumescent solution was utilized to infiltrate the planned areas of liposuction. A total of 2000 cc were instilled. 3 mm suction cannula was used to preterminal in all areas of planned liposuction, and then connected to suction. Cannula was passed in all areas from multiple different locations in order to prevent contour deformity. I did concentrate on the areas of concern, as well as generally performed suction assisted lipectomy of the upper abdomen. Endpoints of liposuction were uniform pinch, and reduction of fat in the areas of concern. Given patient's overall body size and subcutaneous fat thickness, care was taken to avoid over suctioning in order to maintain uniform subcutaneous fat thickness from the upper abdomen down to the pubic area. A total of 850 cc of Lipo aspirate were obtained. Excess fluid was milked out through the access incisions. Attention was then turned to panniculectomy. I reassessed my markings which included a lower horizontal abdominal incision with the midportion 7 cm above the vulvar commissure. Incision was marked bilaterally to the ASIS. I began by injecting 1% lidocaine with epinephrine along the planned incision. The lower abdominal incision was made using a 15-blade scalpel to incise epidermis and superficial dermis followed by electrocautery to incise deep dermis, subcutaneous fat, Dk's fascia down to the abdominal wall. Care was taken to bevel superiorly in order to avoid encountering the inguinal region. Electrocautery was used to elevate the anterior abdominal skin flap ligating the perforating vessels with 3-0 Vicryl ties and electrocautery. Dissection was carried up to the level of the umbilicus in the midline. At this point, a 15-blade scalpel was used to circumscribe the umbilicus. A vertical midline incision was then made from the incision to the umbilicus and divided in the midline using electrocautery. The umbilicus was then dissected out using electrocautery down to abdominal wall. The umbilical stalk appeared viable throughout the procedure. In order to facilitate inset of the umbilicus, dissection was continued for about an additional 10 cm superior to the umbilicus in the midline. At this point, the bed was flexed and the mid portion of the superior skin flap was inset above the mons pubis using 2-0 Vicryl suture. Skin flaps were marked for excision. A 15-blade scalpel was used to make these incisions and the incision was deepened through dermis, subcutaneous fat, Dk's fat using electrocautery. Subscarpal fat was resected directly. A 15 Chinese Hakeem drains were placed in the wound bed and brought out through a separate stab incision in the mons pubis. The drains were sutured into place using 3-0 nylon. Prior to closure, a total of 10 mL of 0.25% Marcaine plain were injected into the fascia as well as along the incisions and Tisseel was sprayed into the wound bed. The umbilicus was brought out through an inverted triangular incision in the abdominal wall. This was performed using a 15-blade scalpel. Wound closure was then begun lateral to medial using 2-0 Vicryl Dk's fascia sutures, 2-0 Vicryl deep dermal sutures, 2-0 PDO running superficial Quill suture, 3-0 Monocryl running subcuticular suture. Umbilicus was brought out through the inverted triangle incision and was sutured into place using 4-0 chromic half buried horizontal mattress sutures. The umbilicus was dressed using Xeroform and the incision was dressed using a Prevena plus wound VAC and an abdominal binder. The procedure was tolerated well. At the close of the case, umbilicus and bilateral nipple areolar complexes were pink and viable. Estimated blood loss 75 cc including Lipo aspirate. The patient was awakened and transferred to recovery in satisfactory condition. Chen Fernandez was present and scrubbed throughout the entire procedure and was instrumental in providing retraction of the pannus and assisting in simultaneous wound closure. I attest to the content of the Intraoperative Record and any orders documented therein. Any exceptions are noted below.
--- NOTE | 2022-04-30 15:28 | Anesthesiology Progress Note ---
Date of Service April 30, 2022 Anesthesia Post Procedure Vital Signs Vital Signs: Temp Pulse Resp BP Pulse Ox O2 Del Method O2 Flow Rate 04/30/22 15:20 36 C L 85 18 137/81 96 Room Air 04/30/22 15:10 84 19 127/85 99 Oxymask 5 04/30/22 15:00 36 C L 85 18 128/80 99 Oxymask 5 04/30/22 06:22 37.3 C 67 20 137/83 97 Room Air Pain Intensity Abdomen: Pain Intensity: 4 Transfer of Care Handoff Completed per policy Notes Mental Status: alert / awake / arousable and participated in evaluation Patient Amnestic to Procedure: Yes Nausea / Vomiting: adequately controlled Pain: adequately controlled Airway Patency, RR, SpO2: stable & adequate BP & HR: stable & adequate Hydration State: stable & adequate Anesthetic Complications: no major complications apparent and Pt Satisfied with anesthetic care Notes: [employer] rep has been notified and will come back to re-interrogate pacer and put it in her initial setting (had been asynchronus at 85bmp intraoperatively).
[2022-04-30] MEDS ORDERED: ACETAMINOPHEN 325 MG TAB PO PRN (16:10)
[2022-04-30] MEDS ORDERED: oxyCODONE/ACETAMINOPHEN 5mg/325mg TAB PO PRN (16:10)
[2022-04-30] MEDS ORDERED: LORazepam 0.5 MG TAB PO PRN (16:10)
[2022-04-30] MEDS ORDERED: diphenhydrAMINE Capsule 25 MG CAP PO PRN (16:10)
[2022-04-30] MEDS ORDERED: diphenhydrAMINE 50 MG/ML VIAL IV PRN (16:10)
[2022-04-30] MEDS ORDERED: PROMETHAZINE HCL 12.5 MG in SODIUM CHLORIDE 0.9% 50 ML IV PRN (16:10)
[2022-04-30] MEDS: CHECK SCOPOLAMINE PATCH PLACEMENT SCH ×2 (16:19→22:22)
[2022-04-30] MEDS: D5W AND 1/2NSS 1,000 ML IV SCH (16:24)
[2022-04-30] MEDS: HYDROmorphone INJ 1 MG/ML SYRINGE IV PRN ×2 (16:40→22:21)
[2022-04-30] MEDS: oxyCODONE/ACETAMINOPHEN 5mg/325mg TAB PO PRN (19:52)
[2022-04-30] MEDS: ceFAZolin 2000MG 2,000 MG/15 ML SYR IV SCH (20:05)
[2022-05-01] MEDS: oxyCODONE/ACETAMINOPHEN 5mg/325mg TAB PO PRN ×3 (01:04→11:49)
[2022-05-01] MEDS: HYDROmorphone INJ 1 MG/ML SYRINGE IV PRN (04:12)
[2022-05-01] MEDS: ceFAZolin 2000MG 2,000 MG/15 ML SYR IV SCH (04:13)
[2022-05-01] MEDS: D5W AND 1/2NSS 1,000 ML IV SCH (04:13)
--- NOTE | 2022-05-01 07:34 | Surgery Progress Note ---
Date of Service May 01, 2022 Assessment & Plan (1) S/P panniculectomy: Plan: Doing well. D/C home today, office follow-up tomorrow. Admission and Anticipated Discharge Date Admission Date: April 30, 2022 Basia Collins is doing well. She has ambulated. Doty removed this AM. She was able to void. She is tolerating regular diet. Physical Exam Physical Exam: drains with serosang output. nipples and umbilicus viable. no erythema of soft tissue. wound vac holdign suction Results & Data ([facility]) Vital Signs (Past 12 Hours) Vital Signs Temp Pulse Resp BP Pulse Ox O2 Del Method 05/01/22 03:51 37.0 C 71 18 123/79 95 Room Air 04/30/22 22:50 37.2 C 67 18 114/72 95 Room Air 04/30/22 19:50 Room Air 04/30/22 19:55 36.8 C 96 H 18 146/74 H 97 Room Air PG Care Time/CCT Total # of Minutes Spent Total Time Spent with Patient: Total time spent is greater than 50% in coordination of care (as documented) at patient's floor/unit and/or counseling patient: Coding Level of Care Code None Diagnoses S/P panniculectomy Z98.890
[2022-05-01] MEDS: CHECK SCOPOLAMINE PATCH PLACEMENT SCH (08:52)
[2022-05-01] MEDS ORDERED: MULTIVITAMIN TAB PO SCH (09:00)
== END 2022-05-01 13:57 | disposition home or self-care (01) ==
LOC: ASU 05:56 → 3E 05:56